=== PATIENT | female | born 1950 | race Caucasian/White ===

== ENCOUNTER 2017-12-12 15:54 | Inpatient (IN) ==
[2017-12-12] MEDS ORDERED: cefTRIAXone 1 GM VIAL IV ONE (16:56)
[2017-12-12 17:52] LABS: Basophils # (Auto) 0 K/mcL (0.0-0.3); Basophils % (Auto) 0.1 % (0.0-2.0); Eosinophils # (Auto) 0.5 K/mcL (0.0-0.7); Eosinophils % (Auto) 5.5 % (0.0-7.0); Granulocytes % (Auto) 77.7 % (38.0-78.0); Lymphocytes # (Auto) 0.8 K/mcL (1.5-4.8); Lymphocytes % (Auto) 9.4 % (15.5-49.0); Mean Cell Volume 80.2 fL (80.0-100.0); Mean Corpuscular HGB Conc 33.3 g/dL (31.0-36.0); Mean Corpuscular Hemoglobin 26.7 pg (26.0-34.0); Monocytes # (Auto) 0.6 K/mcL (0.1-0.9); Monocytes % (Auto) 7.3 % (1.0-12.0); Platelet Count 331 K/mcL (140-440); RBC 3.75 M/mcL (4.00-5.20); Red Cell Distribution Width 14.7 % (11.5-14.5)
--- NOTE | 2017-12-12 17:57 | Emergency Department Note ---
Extremity Problem HPI - General Chief complaint: Extremity Problem,Nontraumatic Stated complaint: Bilateral Lower Extremity Cellulitis Time Seen by Provider: 12/12/17 16:02 Source: patient Mode of arrival: ambulatory Limitations: no limitations - History of Present Illness HPI Narrative: 67-year-old female presents with lower extremity cellulitis. She was diagnosed with this for 5 days ago and was seen in the ER at [facility]. She was supposed to come back for recurrent antibiotic therapy but she did not do so and there was some sort of misunderstanding where she did not understand she was supposed to go back. She presented to her primary care provider at [facility]. They sent her to the ER due to worsening cellulitis with blistering and weeping. She has also had chills, unknown fever. No nausea, vomiting, or diarrhea. She does have chronic significant pedal edema but thinks it is possibly worse than usual. States it was originally just in the right lower leg but now she is a tender area in the left lower leg and she this is exactly how the cellulitis in the right lower leg started to believes it spreading. No shortness of breath or difficulty breathing. No other treatments prior to arrival other than a dressing that had been previously placed to the right lower extremity. - Related Data Home Medications Medication Instructions Recorded Confirmed Accu-Chek 1 strip MIS ACHS 05/05/16 12/12/17 Aspirin [Lo-Dose Aspirin EC] 81 mg PO DAILY 05/05/16 12/12/17 Ergocalciferol (Vitamin D2) 50,000 unit PO Q7D 05/05/16 12/12/17 [Vitamin D2] Insulin Aspart [Novolog] 10 unit SQ QPM 05/05/16 12/12/17 Insulin Detemir [Levemir] 16 unit SQ QPM 05/05/16 12/12/17 Loratadine/Pseudoephedrine [Cvs 10 mcg PO DAILY 05/05/16 12/12/17 Loratadine-D 24Hr Tablet] Metoprolol Tartrate [Lopressor] 25 mg PO BID 05/05/16 12/12/17 Pnv No.122/Iron/Folic Acid 1 tab PO DAILY 05/05/16 12/12/17 [ Multi Tablet] Simvastatin [Zocor] 40 mg PO HS 05/05/16 12/12/17 metFORMIN [Glucophage] 500 mg PO BIDCC 05/05/16 12/12/17 gabapentin 300 mg capsule 600 mg PO TID cap 05/18/16 12/12/17 Allergies Allergy/AdvReac Type Severity Reaction Status Date / Time venom-honey bee Allergy Severe Anaphylaxis Verified 05/06/16 08:12 [bee venom (honey bee)] No Known Drug Intolerances Allergy Unknown Verified 05/04/16 16:04 Review of Systems All systems ED: reviewed and negative except as stated. Past Medical History - Past Medical History [facility] Narrative: Medical History Lymphedema (Acute) Cellulitis (Acute) Renal failure (Acute) DM type 2 causing complication (Acute) Dehydration (Acute) HTN (hypertension) (Acute) Acute renal failure (ARF) (Acute) Nontraumatic blister of skin (Acute) Medical history: Reports: DM, hypertension, renal disease, other (Cellulitis) Surgical history ED: Reports: other - Social History smoking status: Never smoker Alcohol use: Reports: None Drug use: Reports: none Physical Exam Limitations: no limitations General appearance: alert, in no apparent distress Head: atraumatic, normocephalic, normal inspection Eye: Present: normal appearance. Absent: conjunctival injection ENT: mucous membranes moist Chest: Present: symmetric chest wall rise Respiratory: Present: normal lung sounds bilaterally. Absent: respiratory distress, wheezes, accessory muscle use Cardiovascular: Present: regular rate, normal heart sounds Extremities: Absent: normal inspection (Bilateral lower extremities with 2+ pitting edema. The right with significant redness from mid tib-fib down throughout the ankle. The right lateral lower leg also has a 8 cm area by 5 cm area of blistering that is weeping clearish fluid.) Neurological: Present: alert, oriented X3 Psychiatric: Present: normal affect, normal mood Skin: Present: erythema (Please see extremity assessment) Course Course Narrative: At 1830 I did speak with Dr. Amaya, the hospitalist who agrees to see the patient. Vital Signs Temperature 97.9 F 12/12/17 15:56 Pulse Rate 99 H 12/12/17 15:56 Respiratory Rate 18 12/12/17 15:56 Blood Pressure 105/65 12/12/17 15:56 Pulse Oximetry (%) 99 12/12/17 15:56 Temperature 97.9 F 12/12/17 15:56 Pulse Rate 99 H 12/12/17 15:56 Respiratory Rate 18 12/12/17 15:56 Blood Pressure 105/65 12/12/17 15:56 Pulse Oximetry (%) 99 12/12/17 15:56 Extremity Problem, Nontraumati - Lab Data Result diagrams: 12/12/17 16:46 12/12/17 16:46 Lab Results 12/12/17 12/12/17 12/12/17 Range/Units 16:46 16:46 16:46 WBC 8.7 (4.5-11.0) K/mcL RBC 3.75 L (4.00-5.20) M/mcL Hgb 10.0 L (12.0-15.0) g/dL Hct 30.1 L (36.0-48.0) % MCV 80.2 (80.0-100.0) fL MCH 26.7 (26.0-34.0) pg MCHC 33.3 (31.0-36.0) g/dL RDW 14.7 H (11.5-14.5) % Plt Count 331 (140-440) K/mcL MPV 7.1 L (7.4-10.4) fL Gran % 77.7 (38.0-78.0) % Lymph % (Auto) 9.4 L (15.5-49.0) % Adams % (Auto) 7.3 (1.0-12.0) % Eos % (Auto) 5.5 (0.0-7.0) % Baso % (Auto) 0.1 (0.0-2.0) % Gran # 6.8 (1.8-8.0) K/mcL Lymph # (Auto) 0.8 L (1.5-4.8) K/mcL Adams # (Auto) 0.6 (0.1-0.9) K/mcL Eos # (Auto) 0.5 (0.0-0.7) K/mcL Baso # (Auto) 0 (0.0-0.3) K/mcL VBG Lactic Acid 0.9 (0.5-2.2) mmol/L Sodium 137 (133-145) mmol/L Potassium 3.8 (3.3-5.1) mmol/L Chloride 101 (96-108) mmol/L Carbon Dioxide 22 (22-30) mmol/L Anion Gap 14.0 (8-16) BUN 29 H (8-23) mg/dl Creatinine 1.3 H (0.6-1.1) mg/dl GFR Calculation 42 Glucose 119 H (70-105) mg/dL Calcium 8.7 (8.6-10.4) mg/dl Total Bilirubin 0.3 (0.0-1.0) mg/dL AST 9 (0-37) U/l ALT 7 (0-40) U/l Alkaline Phosphatase 73 (39-117) U/L NT-Pro-B Natriuret Pep 226.0 H (0-125) pg/ml Total Protein 7.1 (5.9-8.4) gm/dL Albumin 3.0 L (3.2-5.2) gm/dL Globulin 4.1 H (2.2-3.7) gm/dL Albumin/Globulin Ratio 0.7 L (1.0-2.3) Disposition Pt seen by ORCHARD PRUNER/PA only: Yes Clinical Impression: Cellulitis of lower extremity Disposition: Xfer As Outpt/Obs ([facility]) Condition: Good Referrals: Vaishali Ambriz [Primary Care Provider] - Time of Disposition: 18:35
[2017-12-12 18:14] LABS: ALT/SGPT 7 U/l (0-40); Albumin/Globulin Ratio 0.7 (1.0-2.3); Alkaline Phosphatase 73 U/L (39-117); Blood Urea Nitrogen 29 mg/dl (8-23)
[2017-12-12] MEDS ORDERED: VANCOMYCIN 1,000 MG in 0.9 % SODIUM CHLORIDE 250 ML IV ONE (19:05)
[2017-12-12] MEDS ORDERED: 0.9 % SODIUM CHLORIDE 1,000 ML IV ONE ×2 (19:29→20:16)
[2017-12-12] MEDS ORDERED: PIPERACILLIN SODIUM/TAZOBACTAM 3.375 GM in DEXTROSE 5% IN WATER 50 ML IV SCH (19:30)
--- NOTE | 2017-12-12 19:44 | Internal Med History&Physical ---
Medical - H&P: HPI Patient information: Note initiated : 12/12/17 at 7:39 pm Service Date, if different from initiated Date: [] Patient: Kenia Marion a 67 y/o F admitted on for Bilateral Lower Extremity Cellulitis. Chief Complaint: [] History of present illness: Ms. Marion is a 67 year old F with h/o dm, htn, obesity, renal failure,ckd, hld, chr lymphedema presents to the Er today accompained by her for not feeling well, worsening cellulitis for over 1 week The patient's first noted the increased swelling in the right leg, the patient was seen at [facility] on the fourth of this month, she was given IV Rocephin and advised to follow-up in the ED with daily IV antibiotics. The patient was again seen on the for worsening cellulitis, at that point in time blistering was noted in the right lower extremity, Bactrim was added. The patient according to the history provided today did not get the IV antibiotics, however does admit to be taking the Bactrim. The patient's had gone to the [facility] came back yesterday, he noted to the patient's cellulitis has gotten worse, patient is shivering she is feeling cold has chills has intermittent shortness of breath especially in the evenings , has had bilateral lower extremity swelling which has gotten worse, and now also has erythematous changes on the left leg. He became concerned and therefore brought the patient to the hospital. He also notes that the patient has been more confused over the last 1 week. The patient has had memory issues in the past however they have gotten significantly worse now. The patient denies any headache changes in vision changes in hearing difficulty in swallowing there is no chest pain, there is some shortness of breath, there is no nausea no vomiting no diarrhea no urinary complaints. The patient denies any abdominal pain. Patient has progressive worsening of swelling in the lower extremities which is a chronic issue for her she usually sleeps I believe in the chair. The patient denies any new skin rashes, she has significant pain in both the lower extremities right more than the left. The patient in the ED is febrile temperature 100.8, tachycardic at 134, blood pressure is stable 136/64 she saturating 98% on room air tachypneic at 24. The patient's labs show normal WBC count of 8.7, hemoglobin is 10, platelets 331. Sodium is 137 potassium 3.8 bicarbonate 22 creatinine is 1.3 leukosis 119. Lactic acid 0.9. The patient's heart rate has significantly worsened since that time she has been in the emergency room, she also has developed a new fever she looks visibly sick at this point in time. Her exam shows a significant cellulitis in the right lower extremity extremely tender to touch she also has erythema on the medial aspect of the leg as well as I believe a skip lesion and some erythema in the medial aspect of the thigh. She is wearing some tight clothing' s and therefore it is difficult to completely examine the right lower extremity. Wound care has been consulted Dr. Ramirez evaluated the patient with me in the ER. The patient clinically appears to be sick, I will be admitting the patient to the PCU for close monitoring overnight. Her has been explained the plan of care. All questions answered. IV vancomycin and Zosyn ordered. IV fluids ordered All systems: reviewed and no additional remarkable complaints except as stated ( as per HPI rest neg) Medical - H&P: PMH Medical history: DM HTN HLD Obesity Lymphdemema CKD Surgical history: kidney stone Family history: reviewed and not pertinent Social history: lives with hsband, non smoker, but second hand smoke from no etoh reported occasional THC use. Medical - H&P: Meds Home Medications Medication Instructions Recorded Confirmed Type Accu-Chek 1 strip [facility] 05/05/16 12/12/17 History Aspirin [Lo-Dose Aspirin EC] 81 mg PO DAILY 05/05/16 12/12/17 History Ergocalciferol (Vitamin D2) 50,000 unit PO Q7D 05/05/16 12/12/17 History [Vitamin D2] Insulin Aspart [Novolog] 10 unit SQ QPM 05/05/16 12/12/17 History Insulin Detemir [Levemir] 16 unit SQ QPM 05/05/16 12/12/17 History Loratadine/Pseudoephedrine [Cvs 10 mcg PO DAILY 05/05/16 12/12/17 History Loratadine-D 24Hr Tablet] Metoprolol Tartrate [Lopressor] 25 mg PO BID 05/05/16 12/12/17 History Pnv No.122/Iron/Folic Acid 1 tab PO DAILY 05/05/16 12/12/17 History [ Multi Tablet] Simvastatin [Zocor] 40 mg PO HS 05/05/16 12/12/17 History metFORMIN [Glucophage] 500 mg PO BIDCC 05/05/16 12/12/17 History gabapentin 300 mg capsule 600 mg PO TID cap 05/18/16 12/12/17 History Allergies Allergy/AdvReac Type Severity Reaction Status Date / Time venom-honey bee Allergy Severe Anaphylaxis Verified 05/06/16 08:12 [bee venom (honey bee)] No Known Drug Intolerances Allergy Unknown Verified 05/04/16 16:04 Medical - H&P: Exam - Constitutional Vitals: Temp Pulse Resp BP Pulse Ox 97.9 F 99 H 18 105/65 99 12/12/17 15:56 12/12/17 15:56 12/12/17 15:56 12/12/17 15:56 12/12/17 15:56 Exam: GENERAL: The patient is a well-developed, well-nourished in mild distress, feelign cold wants to be wrapped up. Is alert and oriented x3. VITAL SIGNS: Reviewed and as noted elsewhere. HEENT: Head is normocephalic and atraumatic. Extraocular muscles are intact. Pupils are equal, round, and reactive to light. Nares appeared normal. Mouth appears any without lesions. Mucous membranes are moist. NECK: Normal to inspection, Supple, No lymphadenopathy or thyromegaly. LUNGS: Air entry equal on both sides, no wheezing, crackles or rhonchi noted. No accessory muscles of respiration HEART: Regular tachycardic rate, rhythm normal, S1 and S2 heard, no Gallop, S3 or Rub Noted, No Gross murmur heard. ABDOMEN: Soft, nontender, and nondistended. Positive bowel sounds. No hepatosplenomegaly was noted. EXTREMITIES: No cyanosis, clubbing, rash, edema bilateral +++ NEUROLOGIC: Cranial nerves II through XII are grossly intact. Motor and Sensory System Grossly Intact PSYCHIATRIC: Normal affect, Normal Mood. Appropriate Behavior. SKIN: No ulceration or wounds noted, No jaundice, No rash noted. RLW : significant cellulitis, with brownish induration on the right lateral lig , large bullae, filled with waxy substance. tender to touch, very warm to touch , erytehma involving the medial aspect of the leg, as well as the medial aspect of the right thigh, both areas also tender. LLE: edema present, increased induration, and erytehma on the lateral aspect of the leg, Medical - H&P: Reslt - Labs CBC & Chem 7: 12/12/17 16:46 12/12/17 16:46 Labs: Short CBC 12/12/17 Range/Units 16:46 WBC 8.7 (4.5-11.0) K/mcL Hgb 10.0 L (12.0-15.0) g/dL Hct 30.1 L (36.0-48.0) % Plt Count 331 (140-440) K/mcL BMP 12/12/17 16:46 Sodium 137 Potassium 3.8 Chloride 101 Carbon Dioxide 22 BUN 29 H Creatinine 1.3 H Glucose 119 H Calcium 8.7 Liver Function 12/12/17 Range/Units 16:46 Total Bilirubin 0.3 (0.0-1.0) mg/dL AST 9 (0-37) U/l ALT 7 (0-40) U/l Alkaline Phosphatase 73 (39-117) U/L Albumin 3.0 L (3.2-5.2) gm/dL Medical - H&P: A/P - Narrative A/P Narrative: A/P Severe sepsis Severe Cellulitis DM HTN HLD Lymphdemema CKD Plan Admit to PCU for close monitoring as pt is clinically appears sick with significant tachycardia, IV fluids, IV vancomycin and zosyn wound care consult STAT CT of the right lower extremity ordered, given that the patient has sever cellulitis, and skip lesions, would like to see if deeper tissue is involved, will get surgery consult if fascitis noted. Otherwise wound care can debrided. Duplex LE to r/o dvt get CXR and EKG Trend labs. SSI insulin for glucose control hold bp medication continue statin DVT hep sq Full code Diabetic cardiac diet.
[2017-12-12] MEDS ORDERED: DEXTROSE 31 GM ORAL.SUSP PO PRN (20:16)
[2017-12-12] MEDS ORDERED: LACTATED RINGERS 1,000 ML IV SCH (20:16)
[2017-12-12] MEDS ORDERED: DEXTROSE 50% 50 ML VIAL IV PRN (20:16)
[2017-12-12] MEDS ORDERED: ACETAMINOPHEN 325 MG TABLET PO PRN (20:16)
[2017-12-12] MEDS ORDERED: NALOXONE HCL 0.4 MG/ML VIAL IV PRN (20:16)
[2017-12-12] MEDS: INSULIN LISPRO 1 UNIT/0.01 ML UNIT SQ SCH (20:49)
[2017-12-12] MEDS: oxyCODONE HCL 5 MG TABLET PO PRN (20:51)
[2017-12-12] MEDS ORDERED: VANCOMYCIN PER PHARMACY IV ONE (20:56)
[2017-12-12] MEDS: HEPARIN 5,000 UNIT/ML VIAL SQ SCH (21:00)
[2017-12-12] MEDS: GABAPENTIN 300 MG CAPSULE PO SCH (21:00)
[2017-12-12] MEDS ORDERED: SIMVASTATIN 40 MG TABLET PO SCH (21:00)
--- NOTE | 2017-12-12 21:15 | General Surgery Consult Note ---
History of Present Illness Patient information: Note initiated : 12/12/17 at 9:10 pm Service Date, if different from initiated Date: [] Patient: Kenia Marion 67 y/o F admitted on 12/12/17 for Bilateral Lower Extremity Cellulitis. Chief Complaint: [] Consult date: 12/12/17 Requesting physician: Mina Amaya (Wound Care Management) History of present illness: I saw this patient in ER along with Dr. Amaya.Reviewed notes from ER visit at [facility] last week. Patient accompanied by her . \ Referred to ER at [facility] by her PCP at [facility] clinic. H/O HTN, DM2, CHRONIC LYMPHEDEMA OF BOTH LE, post phlebitis syndrome both legs , FATIMAH and now CSSSI with evolving SIRS. with tenderness and blister lateral lower half of right leg. Fever, chills and rigors and shakiness today when seen in ER. Denies N/V/D/CP/SOB/ Headache , Diplopia, Neck stiffness. Medications and Allergies Home Medications Medication Instructions Recorded Confirmed Type Accu-Chek 1 strip [facility] [place]S 05/05/16 12/12/17 History Aspirin [Lo-Dose Aspirin EC] 81 mg PO DAILY 05/05/16 12/12/17 History Ergocalciferol (Vitamin D2) 50,000 unit PO Q7D 05/05/16 12/12/17 History [Vitamin D2] Insulin Aspart [Novolog] 10 unit SQ QPM 05/05/16 12/12/17 History Insulin Detemir [Levemir] 16 unit SQ QPM 05/05/16 12/12/17 History Loratadine/Pseudoephedrine [Cvs 10 mcg PO DAILY 05/05/16 12/12/17 History Loratadine-D 24Hr Tablet] Metoprolol Tartrate [Lopressor] 25 mg PO BID 05/05/16 12/12/17 History Pnv No.122/Iron/Folic Acid 1 tab PO DAILY 05/05/16 12/12/17 History [ Multi Tablet] Simvastatin [Zocor] 40 mg PO HS 05/05/16 12/12/17 History metFORMIN [Glucophage] 500 mg PO BIDCC 05/05/16 12/12/17 History gabapentin 300 mg capsule 600 mg PO TID cap 05/18/16 12/12/17 History Allergies Allergy/AdvReac Type Severity Reaction Status Date / Time venom-honey bee Allergy Severe Anaphylaxis Verified 05/06/16 08:12 [bee venom (honey bee)] No Known Drug Intolerances Allergy Unknown Verified 05/04/16 16:04 Exam Temp Pulse Resp BP Pulse Ox 101.2 F H 120 H 23 H 120/59 92 12/12/17 21:00 12/12/17 20:30 12/12/17 20:30 12/12/17 20:30 12/12/17 20:30 - General physical appearance well nourished, moderate distress, obese, other (Morbid obesity with lymphedema of both legs Right > Left. ) - Eyes PERRL, normal ocular movement - ENT normal pinna, normal nares, normal mucosa, no congestion, other (symmetrical shaking and chills and tremors of hands) - Head Head exam IM: Present: atraumatic, normal inspection, normocephalic - Neck no masses, no bruits, trachea midline, no venous distension - Cardiovascular Cardiovascular exam IM: Present: irregular rhythm - Respiratory other (Tachypneic with decreased breath sounds at bases) - Abdomen Abdomen: Present: soft, non tender, bowel sounds (OBESE) - Integumentary Present: other (Post phlebitis syndrome with blister lateral lower half of leg over 5 to 6 CM . Lymphorrhea) - Neurologic Present: normal coordination, other (anxious) - Musculoskeletal Present: other (Lymphedema of both legs. Post phlebitis syndrome changes both lower legs . Right > Left. There is straking lymphangitis along medial lower RIGHT thigh superimposed on Cellulitis aroud blister site as marked out) - Psychiatric Present: oriented to time, oriented to person, oriented to place, speech is normal (Anxious and nervous. at bedside. ) Results - Labs 12/14/17 03:45 12/14/17 03:45 Abnormal lab results 12/12/17 12/12/17 Range/Units 16:46 16:46 RBC 3.75 L (4.00-5.20) M/mcL Hgb 10.0 L (12.0-15.0) g/dL Hct 30.1 L (36.0-48.0) % RDW 14.7 H (11.5-14.5) % MPV 7.1 L (7.4-10.4) fL Lymph % (Auto) 9.4 L (15.5-49.0) % Lymph # (Auto) 0.8 L (1.5-4.8) K/mcL BUN 29 H (8-23) mg/dl Creatinine 1.3 H (0.6-1.1) mg/dl Glucose 119 H (70-105) mg/dL NT-Pro-B Natriuret Pep 226.0 H (0-125) pg/ml Albumin 3.0 L (3.2-5.2) gm/dL Globulin 4.1 H (2.2-3.7) gm/dL Albumin/Globulin Ratio 0.7 L (1.0-2.3) Diabetes panel 12/12/17 Range/Units 16:46 Sodium 137 (133-145) mmol/L Potassium 3.8 (3.3-5.1) mmol/L Chloride 101 (96-108) mmol/L Carbon Dioxide 22 (22-30) mmol/L BUN 29 H (8-23) mg/dl Creatinine 1.3 H (0.6-1.1) mg/dl Glucose 119 H (70-105) mg/dL Calcium 8.7 (8.6-10.4) mg/dl AST 9 (0-37) U/l ALT 7 (0-40) U/l Alkaline Phosphatase 73 (39-117) U/L Total Protein 7.1 (5.9-8.4) gm/dL Albumin 3.0 L (3.2-5.2) gm/dL Calcium panel 12/12/17 Range/Units 16:46 Calcium 8.7 (8.6-10.4) mg/dl Albumin 3.0 L (3.2-5.2) gm/dL Pituitary panel 12/12/17 Range/Units 16:46 Sodium 137 (133-145) mmol/L Potassium 3.8 (3.3-5.1) mmol/L Chloride 101 (96-108) mmol/L Carbon Dioxide 22 (22-30) mmol/L BUN 29 H (8-23) mg/dl Creatinine 1.3 H (0.6-1.1) mg/dl Glucose 119 H (70-105) mg/dL Calcium 8.7 (8.6-10.4) mg/dl Adrenal panel 12/12/17 Range/Units 16:46 Sodium 137 (133-145) mmol/L Potassium 3.8 (3.3-5.1) mmol/L Chloride 101 (96-108) mmol/L Carbon Dioxide 22 (22-30) mmol/L BUN 29 H (8-23) mg/dl Creatinine 1.3 H (0.6-1.1) mg/dl Glucose 119 H (70-105) mg/dL Calcium 8.7 (8.6-10.4) mg/dl Total Bilirubin 0.3 (0.0-1.0) mg/dL AST 9 (0-37) U/l ALT 7 (0-40) U/l Alkaline Phosphatase 73 (39-117) U/L Total Protein 7.1 (5.9-8.4) gm/dL Albumin 3.0 L (3.2-5.2) gm/dL All other labs normal. Assessment and Plan (1) SIRS (systemic inflammatory response syndrome) Status: Acute Priority: High Comment: Source of Sepsis is skin and skin structures RIGHT lower lateral leg with CELLULITIS and streaking lymphangitis along medial lower thigh. REVIEWED CT scans. NO gas bubbles. DO NOT suspect deep tissue necrosis. Agree with admission to ICU . Will follow. (2) Dermatitis associated with moisture Status: Acute Priority: High Comment: Lymphedema LE Right > Left
[2017-12-12] MEDS ORDERED: IOPAMIDOL 100 ML BOTTLE IV ONE (22:21)
[2017-12-12] MEDS: 0.9 % SODIUM CHLORIDE 10 ML SYRINGE IV SCH (22:39)
[2017-12-13] MEDS: PIPERACILLIN SODIUM/TAZOBACTAM 3.375 GM in DEXTROSE 5% IN WATER 50 ML IV SCH ×4 (00:16→17:22)
[2017-12-13] MEDS ORDERED: 0.9 % SODIUM CHLORIDE 1,000 ML IV ONE ×2 (00:24→00:46)
[2017-12-13] MEDS: 0.9 % SODIUM CHLORIDE 10 ML SYRINGE IV SCH ×2 (05:37→14:00)
[2017-12-13 05:38] LABS: Basophils # (Auto) 0 K/mcL (0.0-0.3); Basophils % (Auto) 0.3 % (0.0-2.0); Eosinophils # (Auto) 0.3 K/mcL (0.0-0.7); Eosinophils % (Auto) 4.3 % (0.0-7.0); Granulocytes % (Auto) 76.8 % (38.0-78.0); Lymphocytes # (Auto) 0.8 K/mcL (1.5-4.8); Mean Cell Volume 80.9 fL (80.0-100.0); Mean Corpuscular HGB Conc 33.1 g/dL (31.0-36.0); Mean Corpuscular Hemoglobin 26.7 pg (26.0-34.0); Monocytes # (Auto) 0.7 K/mcL (0.1-0.9); Monocytes % (Auto) 8.6 % (1.0-12.0); Platelet Count 305 K/mcL (140-440); RBC 3.34 M/mcL (4.00-5.20); Red Cell Distribution Width 15.1 % (11.5-14.5)
[2017-12-13 06:00] LABS: Prealbumin 6.9 mg/dl (20-40)
[2017-12-13 06:01] LABS: ALT/SGPT 6 U/l (0-40); Albumin 2.2 gm/dL (3.2-5.2); Albumin/Globulin Ratio 0.6 (1.0-2.3); Alkaline Phosphatase 62 U/L (39-117); Bilirubin,Direct < 0.2 mg/dL (0.0-0.3); Blood Urea Nitrogen 24 mg/dl (8-23); C-Reactive Protein 9.8 mg/dl (0.0-0.8); Gamma Glutamyl Transpeptidase 20 U/L (5-36); Uric Acid 8.8 mg/dL (2.5-8.0)
[2017-12-13 06:44] LABS: Estimated Average Glucose(eAG) 255 mg/dL; Hemoglobin A1C 10.5 % HGB (4.0-6.0)
[2017-12-13] MEDS: oxyCODONE HCL 5 MG TABLET PO PRN ×2 (07:02→13:34)
--- NOTE | 2017-12-13 07:43 | Emergency Department Note ---
ED Note Addendum Note Addendum: I saw this patient with Kathrin AMBROSIO. I agree with her evaluation management documentation. Specifically concerned about her right leg in particular. Do agree with decision to admit. Notably the patient was stable for most of her ER stay but towards the latter part of it vital signs changed and there was some concern that she had SIRS or may be going septic. She was admitted to the ICU. See other documentation for interventions
[2017-12-13] MEDS ORDERED: VANCOMYCIN PER PHARMACY IV SCH ×2 (07:45→12:04)
--- NOTE | 2017-12-13 07:48 | Cat Scan Report ---
History: Bilateral leg cellulitis TECHNIQUE: Intravenous nonionic contrast was injected. Venous phase images were obtained from the mid pelvis through the ankles. Sagittal and coronal reformats were created of both legs separately. Radiation exposure was limited by a dose reduction technology. FINDINGS: There is severe edema/cellulitis in the right leg with moderate edema/cellulitis in the left leg. The greatest inflammation is in the calves. This extends into the thighs bilaterally and up to the level of the gluteus muscles in the right leg. No abscess or mass are present in either leg. Inflammation extends down to the deep fascia but there is no compartment syndrome. The muscles in the legs appear normal without evidence of myositis. No deep or superficial venous thrombosis is present in either leg. There is a moderate amount of calcified plaque in the arteries throughout both legs with the greatest involvement in the calves, especially in the posterior tibial arteries. Bone windows show no evidence of osteomyelitis. There is mild arthritis in the knees and ankles. Incidentally noted is a 3 cm periumbilical hernia. Montiel catheter is present in the urinary bladder. Few diverticula are present in the sigmoid colon. IMPRESSION: Severe edema/cellulitis in both legs, right worse than left No evidence of abscess or osteomyelitis No evidence of deep venous thrombosis Kathrin Burleson was called with the results Interpreted and Authenticated by: Oneal Atkins 12/13/17
--- NOTE | 2017-12-13 07:50 | XRay Report ---
HISTORY: Reason for Exam:shortness of breath FINDINGS: There are mild hazy infiltrates in both lungs, left greater than right. They are predominantly located in a perihilar distribution. There is no lobar consolidation. The heart size is normal and no pleural effusion is present. Comparison with the prior exam from 04/25/16 shows the infiltrates are new. IMPRESSION: Bilateral perihilar opacities which could be due to congestive heart failure or pneumonia Interpreted and Authenticated by: Oneal Atkins 12/13/17
[2017-12-13] MEDS ORDERED: ASPIRIN 81 MG TAB.CHEW PO SCH (09:00)
[2017-12-13] MEDS ORDERED: VANCOMYCIN 1,500 MG in 0.9 % SODIUM CHLORIDE 500 ML IV SCH (09:00)
--- NOTE | 2017-12-13 09:02 | General Surgery Progress Note ---
Subjective Narrative: Note initiated : 12/13/17 at 8:59 am Service Date, if different from initiated Date: [] Patient: Kenia Marion 67 y/o F admitted on 12/12/17 for Bilateral Lower Extremity Cellulitis. Chief Complaint: [] Patient seen in ICU on rounds with Rylee SANTANA . Family at bedside. Lucid, coherent , OOB in chair. Hemodynamically stabilizing. Local wound care is ongoing. Objective Temp Pulse Resp BP Pulse Ox 99.4 F H 97 H 18 102/57 98 12/13/17 08:13 12/13/17 08:13 12/13/17 08:13 12/13/17 07:01 12/13/17 08:13 VSS. Low grade fever. No flaring of nostrils. No acute changes in DARWIN. Local wound care is ongoing. - Additional Data Intake & Output - Last 24 hours: Intake & Output 12/11/17 12/12/17 12/13/17 12/14/17 05:59 05:59 05:59 05:59 Intake Total 2300 / 2300 50 / 50 Output Total 930 / 930 143 / 143 Balance 1370 / 1370 -93 / -93 Weight 194 lb 6.4 oz - Labs 12/14/17 03:45 12/14/17 03:45 Diabetes panel 12/12/17 12/13/17 12/13/17 Range/Units 16:46 03:45 03:45 Sodium 137 137 (133-145) mmol/L Potassium 3.8 4.1 (3.3-5.1) mmol/L Chloride 101 106 (96-108) mmol/L Carbon Dioxide 22 19 L (22-30) mmol/L BUN 29 H 24 H (8-23) mg/dl Creatinine 1.3 H 1.1 (0.6-1.1) mg/dl Glucose 119 H 146 H (70-105) mg/dL Hemoglobin A1c 10.5 H (4.0-6.0) % HGB Calcium 8.7 7.7 L (8.6-10.4) mg/dl AST 9 8 (0-37) U/l ALT 7 6 (0-40) U/l Alkaline Phosphatase 73 62 (39-117) U/L Total Protein 7.1 5.7 L (5.9-8.4) gm/dL Albumin 3.0 L 2.2 L (3.2-5.2) gm/dL Triglycerides 170 H (<150) mg/dl Thyroid panel 12/13/17 Range/Units 03:45 TSH 1.49 (0.27-5.01) uIU/ml Calcium panel 12/12/17 12/13/17 Range/Units 16:46 03:45 Calcium 8.7 7.7 L (8.6-10.4) mg/dl Phosphorus 2.8 (2.7-4.5) mg/dL Albumin 3.0 L 2.2 L (3.2-5.2) gm/dL Pituitary panel 12/12/17 12/13/17 12/13/17 Range/Units 16:46 03:45 03:45 Sodium 137 137 (133-145) mmol/L Potassium 3.8 4.1 (3.3-5.1) mmol/L Chloride 101 106 (96-108) mmol/L Carbon Dioxide 22 19 L (22-30) mmol/L BUN 29 H 24 H (8-23) mg/dl Creatinine 1.3 H 1.1 (0.6-1.1) mg/dl Glucose 119 H 146 H (70-105) mg/dL Calcium 8.7 7.7 L (8.6-10.4) mg/dl TSH 1.49 (0.27-5.01) uIU/ml Adrenal panel 12/12/17 12/13/17 Range/Units 16:46 03:45 Sodium 137 137 (133-145) mmol/L Potassium 3.8 4.1 (3.3-5.1) mmol/L Chloride 101 106 (96-108) mmol/L Carbon Dioxide 22 19 L (22-30) mmol/L BUN 29 H 24 H (8-23) mg/dl Creatinine 1.3 H 1.1 (0.6-1.1) mg/dl Glucose 119 H 146 H (70-105) mg/dL Calcium 8.7 7.7 L (8.6-10.4) mg/dl Total Bilirubin 0.3 0.2 (0.0-1.0) mg/dL AST 9 8 (0-37) U/l ALT 7 6 (0-40) U/l Alkaline Phosphatase 73 62 (39-117) U/L Total Protein 7.1 5.7 L (5.9-8.4) gm/dL Albumin 3.0 L 2.2 L (3.2-5.2) gm/dL Assessment and Plan (1) SIRS (systemic inflammatory response syndrome) Problem details: Source of Sepsis is skin and skin structures RIGHT lower lateral leg with CELLULITIS and streaking lymphangitis along medial lower thigh. REVIEWED CT scans. NO gas bubbles. DO NOT suspect deep tissue necrosis. Agree with admission to ICU . Will follow. Status: Acute Current Visit: Yes (2) Dermatitis associated with moisture Problem details: Lymphedema LE Right > Left Status: Acute Current Visit: Yes - Narrative A/P Narrative: Assessment: Reassessed and progress reviewed with ICU nurse and Hospitalist Physician. Plan : Continue present treatment. - Time Spent With Patient Total time spent is greater than 50% in coordination of care (as documented) at patient's floor/unit and/or counseling patient: 15 - 24 minutes (Progress reviewed with Dr. Amaya and Rylee SANTANA)
[2017-12-13] MEDS: INSULIN LISPRO 1 UNIT/0.01 ML UNIT SQ SCH ×4 (09:11→20:53)
[2017-12-13] MEDS: HEPARIN 5,000 UNIT/ML VIAL SQ SCH ×2 (09:12→20:52)
[2017-12-13] MEDS: GABAPENTIN 300 MG CAPSULE PO SCH ×3 (09:12→20:53)
--- NOTE | 2017-12-13 11:34 | Internal Med Progress Note ---
Medical - PN: Subj Patient information: Note initiated : 12/13/17 at 11:32 am Service Date, if different from initiated Date: [] Patient: Kenia Marion a 67 y/o F admitted on 12/12/17 for Bilateral Lower Extremity Cellulitis. Chief Complaint: [] Interval history: Ms. Marion is a 67 year old F with h/o dm, htn, obesity, renal failure,ckd, hld, chr lymphedema presents to the Er today accompained by her for not feeling well, worsening cellulitis for over 1 week The patient's first noted the increased swelling in the right leg, the patient was seen at [facility] on the fourth of this month, she was given IV Rocephin and advised to follow-up in the ED with daily IV antibiotics. The patient was again seen on the for worsening cellulitis, at that point in time blistering was noted in the right lower extremity, Bactrim was added. The patient according to the history provided today did not get the IV antibiotics, however does admit to be taking the Bactrim. The patient's had gone to the [facility] came back yesterday, he noted to the patient's cellulitis has gotten worse, patient is shivering she is feeling cold has chills has intermittent shortness of breath especially in the evenings , has had bilateral lower extremity swelling which has gotten worse, and now also has erythematous changes on the left leg. He became concerned and therefore brought the patient to the hospital. He also notes that the patient has been more confused over the last 1 week. The patient has had memory issues in the past however they have gotten significantly worse now. The patient denies any headache changes in vision changes in hearing difficulty in swallowing there is no chest pain, there is some shortness of breath, there is no nausea no vomiting no diarrhea no urinary complaints. The patient denies any abdominal pain. Patient has progressive worsening of swelling in the lower extremities which is a chronic issue for her she usually sleeps I believe in the chair. The patient denies any new skin rashes, she has significant pain in both the lower extremities right more than the left. The patient in the ED is febrile temperature 100.8, tachycardic at 134, blood pressure is stable 136/64 she saturating 98% on room air tachypneic at 24. The patient's labs show normal WBC count of 8.7, hemoglobin is 10, platelets 331. Sodium is 137 potassium 3.8 bicarbonate 22 creatinine is 1.3 leukosis 119. Lactic acid 0.9. The patient's heart rate has significantly worsened since that time she has been in the emergency room, she also has developed a new fever she looks visibly sick at this point in time. Her exam shows a significant cellulitis in the right lower extremity extremely tender to touch she also has erythema on the medial aspect of the leg as well as I believe a skip lesion and some erythema in the medial aspect of the thigh. She is wearing some tight clothing' s and therefore it is difficult to completely examine the right lower extremity. Wound care has been consulted Dr. Ramirez evaluated the patient with me in the ER. The patient clinically appears to be sick, I will be admitting the patient to the PCU for close monitoring overnight. Her has been explained the plan of care. All questions answered. IV vancomycin and Zosyn ordered. IV fluids ordered 12/13 Patient seen and examined, overnight the blood pressure has remained stable. Mental status improved patient clinically appears better. Hemoglobin dropped a bit as anticipated with hydration and severe sepsis. CT scan does not show any evidence of necrotizing fasciitis patient does have severe cellulitis in the right leg as well as in the left leg. Right worse than the left. Appreciate help from wound care. Continue IV vancomycin and Zosyn. Transfer patient to telemetry status Pertinent ROS: Denies headache, dizziness Denies chest pain, palpitations some cough today, no sob, Denies abdominal pain, nausea or vomiting. - Constitutional Vitals: Vital Signs Temp Pulse Resp BP Pulse Ox 99.5 F H 108 H 17 97/53 98 12/13/17 09:01 12/13/17 09:01 12/13/17 11:01 12/13/17 11:01 12/13/17 09:01 Period Temp Pulse Resp BP Sys/Mayo Pulse Ox Last 24 Hr 97.7 F-101.4 F 81-134 14-24 85-136/42-65 92-99 Intake and Output 12/12/17 12/13/17 12/13/17 21:59 05:59 13:59 Intake Total 250 / 250 0 / 0 290 / 290 Output Total 930 / 930 283 / 283 Balance 250 / 250 1120 / 1120 7 / 7 Weight 194 lb 6.4 oz Intake & Output: Intake & Output 12/12/17 12/13/17 12/13/17 21:59 05:59 13:59 Intake Total 250 / 250 2049 290 / 290 Output Total 930 / 930 283 / 283 Balance 250 / 250 1120 / 1120 7 / 7 Weight 194 lb 6.4 oz Intake: IV 250 / 250 2049 50 / 50 Sodium Chloride 0.9% 1,000 ml @ 1999 / 1999 Wide Open IV B[facility] ONE Rx#: [id number] Zosyn 3.375 gm In Dextrose 5% 50 / 50 50 / 50 in Water 50 ml @ 100 mls/hr IV Q6H [facility] Rx#:[id number] Vancomycin 1,000 mg In Sodium 250 / 250 Chloride 0.9% 250 ml @ 250 mls/ hr IV ONCE ONE Rx#:[id number] Oral 240 / 240 Output: Urine Catheter Amount 930 / 930 283 / 283 Void Amount 0 / 0 Other: Meal Grahm crackers, orange juice Breakfast Percent of Meal Consumed 75% 75% Feeding Ability Assist with Tray Set Up Exam: Constitutional; Afebrile, cooperative, alert, not in distress. Eyes- No icterus, , No periorbital swelling Ears- Ext ear normal, hearing normal to conversation. Neck- Midline trachea, supple Respiratory system: Air Entry equal on both sides, No crackles or wheezing, no rhonchi. CVS- Rate rhythm regular, S1,S2 heard, no gallop, no rub. Abdomen- Soft nontender abdomen, no organomegaly, no tenderness, no guarding or rigidity, WELL TESTER- AOOx3, moving all extremities, no gross focal deficit noted. Medical - PN: Obj Da - Labs CBC & Chem 7: 12/13/17 03:45 12/13/17 03:45 Labs: Abnormal Lab Results 12/13/17 12/13/17 12/13/17 03:45 03:45 03:45 RBC Hgb Hct RDW MPV Lymph % (Auto) Lymph # (Auto) ESR 83 H Carbon Dioxide 19 L BUN 24 H Creatinine Glucose 146 H Hemoglobin A1c 10.5 H Uric Acid 8.8 H Calcium 7.7 L C-Reactive Protein 9.8 H NT-Pro-B Natriuret Pep Total Protein 5.7 L Albumin 2.2 L Globulin Albumin/Globulin Ratio 0.6 L Prealbumin 6.9 L Triglycerides 170 H 12/13/17 12/12/17 12/12/17 03:45 16:46 16:46 RBC 3.34 L 3.75 L Hgb 8.9 L 10.0 L Hct 27.0 L 30.1 L RDW 15.1 H 14.7 H MPV 7.1 L 7.1 L Lymph % (Auto) 10.0 L 9.4 L Lymph # (Auto) 0.8 L 0.8 L ESR Carbon Dioxide BUN 29 H Creatinine 1.3 H Glucose 119 H Hemoglobin A1c Uric Acid Calcium C-Reactive Protein NT-Pro-B Natriuret Pep 226.0 H Total Protein Albumin 3.0 L Globulin 4.1 H Albumin/Globulin Ratio 0.7 L Prealbumin Triglycerides Meds: Medications Acetaminophen (Tylenol) 650 mg PO Q4-6HP PRN PRN Reason: PAIN/FEVER > 101 Last Admin: 12/12/17 21:00 Dose: 650 mg Aspirin (Aspirin) 81 mg PO DAILY [facility] Last Admin: 12/13/17 09:12 Dose: 81 mg Dextrose (Dextrose 50%) 0 ml IV UD PRN PRN Reason: Hypoglycemia Diagnostic Test (Pha) (Accu-Chek) 1 each FS ACHS [facility] Last Admin: 12/13/17 09:10 Dose: 1 each Gabapentin (Neurontin) 600 mg PO TID [facility] Last Admin: 12/13/17 09:12 Dose: 600 mg Glucose (Insta-Glucose) 15 gm PO PRN PRN PRN Reason: Hypoglycemia Heparin Sodium (Porcine) (Heparin) 5,000 unit SQ Q12 [facility] Last Admin: 12/13/17 09:12 Dose: 5,000 unit Piperacillin Sod/Tazobactam (Sod 3.375 gm/ Dextrose) 50 mls @ 100 mls/hr IV Q6H [facility] Last Infusion: 12/13/17 06:10 Dose: Infused Vancomycin HCl 1,500 mg/ (Sodium Chloride) 500 mls @ 333.3 mls/hr IV DAILY [facility] Last Admin: 12/13/17 09:19 Dose: 333.3 mls/hr Insulin Human Lispro (Humalog) 0 unit SQ ACHS [facility] PRN Reason: Protocol Last Admin: 12/13/17 09:11 Dose: Not Given Naloxone HCl (Narcan) 0.1 mg IV Q2MIN PRN PRN Reason: Opiate Reversal Oxycodone HCl (Roxicodone) 5 mg PO Q4HP PRN PRN Reason: Pain Last Admin: 12/13/17 07:02 Dose: 5 mg Simvastatin (Zocor) 40 mg PO HS [facility] Last Admin: 12/12/17 21:00 Dose: 40 mg Sodium Chloride (Saline Flush) 10 ml IV Q8 [facility] Last Admin: 12/13/17 05:37 Dose: 10 ml Vancomycin HCl (Vancomycin Per Pharmacy) 1 order IV UD [facility] Medical - PN: A/P - Time Spent With Patient Total time spent is greater than 50% in coordination of care (as documented) at patient's floor/unit and/or counseling patient: - Narrative A/P Narrative: A/P Severe sepsis Severe Cellulitis DM HTN HLD Lymphdemema CKD Plan continue to monitor IV vanco and zosyn to continue wound care help appreciated bp stable, labs stable d/c live Xfer to tele status. DVT hep sq Full code Diabetic cardiac diet. plan of care reviewed with and patient. Medical - PN: Qual - VTE Deep Vein Thrombosis/Pulmonary Embolism Present on Admission: No
[2017-12-13] MEDS ORDERED: DEXTROSE 31 GM ORAL.SUSP PO PRN (12:04)
[2017-12-13] MEDS ORDERED: NALOXONE HCL 0.4 MG/ML VIAL IV PRN (12:04)
[2017-12-13] MEDS ORDERED: DEXTROSE 50% 50 ML VIAL IV PRN (12:04)
[2017-12-13] MEDS ORDERED: ACETAMINOPHEN 325 MG TABLET PO PRN (12:04)
--- NOTE | 2017-12-13 14:27 | Ultrasound Report ---
History: Edema and erythema in both legs There is normal augmentation and compressibility in the deep veins in both legs from the groin through the calf. There are segments of the mid and upper calf which are obscured by overlying dressings on the skin. Above and below the skin dressings there is normal blood flow in the calf vessels. The greater saphenous veins are also normal. Doppler shows normal waveform patterns. IMPRESSION: No evidence of deep venous thrombosis in either leg. Interpreted and Authenticated by: Oneal Atkins 12/13/17
[2017-12-13] MEDS: SIMVASTATIN 40 MG TABLET PO SCH (20:58)
[2017-12-14] MEDS: 0.9 % SODIUM CHLORIDE 10 ML SYRINGE IV SCH ×4 (00:19→20:54)
[2017-12-14] MEDS: PIPERACILLIN SODIUM/TAZOBACTAM 3.375 GM in DEXTROSE 5% IN WATER 50 ML IV SCH ×4 (00:19→20:10)
[2017-12-14] MEDS: oxyCODONE HCL 5 MG TABLET PO PRN ×4 (00:20→23:50)
[2017-12-14 05:19] LABS: Basophils # (Auto) 0 K/mcL (0.0-0.3); Basophils % (Auto) 0.3 % (0.0-2.0); Eosinophils # (Auto) 0.6 K/mcL (0.0-0.7); Eosinophils % (Auto) 7.7 % (0.0-7.0); Granulocytes % (Auto) 68.9 % (38.0-78.0); Lymphocytes % (Auto) 13.6 % (15.5-49.0); Mean Cell Volume 81.2 fL (80.0-100.0); Mean Corpuscular HGB Conc 33.1 g/dL (31.0-36.0); Mean Corpuscular Hemoglobin 26.9 pg (26.0-34.0); Monocytes # (Auto) 0.7 K/mcL (0.1-0.9); Monocytes % (Auto) 9.5 % (1.0-12.0); Platelet Count 297 K/mcL (140-440); Red Cell Distribution Width 14.9 % (11.5-14.5)
[2017-12-14 05:48] LABS: ALT/SGPT 6 U/l (0-40); Albumin 2.2 gm/dL (3.2-5.2); Albumin/Globulin Ratio 0.6 (1.0-2.3); Alkaline Phosphatase 61 U/L (39-117); Bilirubin,Direct < 0.2 mg/dL (0.0-0.3); Blood Urea Nitrogen 18 mg/dl (8-23); Gamma Glutamyl Transpeptidase 21 U/L (5-36); Uric Acid 6.2 mg/dL (2.5-8.0)
[2017-12-14] MEDS: INSULIN LISPRO 1 UNIT/0.01 ML UNIT SQ SCH ×4 (07:37→20:50)
[2017-12-14] MEDS ORDERED: METOPROLOL TARTRATE 5 MG/5 ML VIAL IV ONE ×2 (08:57→10:22)
[2017-12-14] MEDS ORDERED: METOPROLOL TARTRATE 25 MG TABLET PO SCH ×2 (09:00→21:00)
[2017-12-14] MEDS: HEPARIN 5,000 UNIT/ML VIAL SQ SCH ×2 (09:05→20:50)
[2017-12-14] MEDS: ASPIRIN 81 MG TAB.CHEW PO SCH (09:05)
[2017-12-14] MEDS: GABAPENTIN 300 MG CAPSULE PO SCH ×3 (09:05→20:50)
[2017-12-14] MEDS: VANCOMYCIN 1,500 MG in 0.9 % SODIUM CHLORIDE 500 ML IV SCH (10:47)
--- NOTE | 2017-12-14 13:26 | Internal Med Progress Note ---
Medical - PN: Subj Patient information: Note initiated : 12/14/17 at 1:23 pm Service Date, if different from initiated Date: [] Patient: Kenia Marion a 67 y/o F admitted on 12/12/17 for Bilateral Lower Extremity Cellulitis. Chief Complaint: [] Interval history: Ms. Marion is a 67 year old F with h/o dm, htn, obesity, renal failure,ckd, hld, chr lymphedema presents to the Er today accompained by her for not feeling well, worsening cellulitis for over 1 week The patient's first noted the increased swelling in the right leg, the patient was seen at [facility] on the fourth of this month, she was given IV Rocephin and advised to follow-up in the ED with daily IV antibiotics. The patient was again seen on the for worsening cellulitis, at that point in time blistering was noted in the right lower extremity, Bactrim was added. The patient according to the history provided today did not get the IV antibiotics, however does admit to be taking the Bactrim. The patient's had gone to the [facility] came back yesterday, he noted to the patient's cellulitis has gotten worse, patient is shivering she is feeling cold has chills has intermittent shortness of breath especially in the evenings , has had bilateral lower extremity swelling which has gotten worse, and now also has erythematous changes on the left leg. He became concerned and therefore brought the patient to the hospital. He also notes that the patient has been more confused over the last 1 week. The patient has had memory issues in the past however they have gotten significantly worse now. The patient denies any headache changes in vision changes in hearing difficulty in swallowing there is no chest pain, there is some shortness of breath, there is no nausea no vomiting no diarrhea no urinary complaints. The patient denies any abdominal pain. Patient has progressive worsening of swelling in the lower extremities which is a chronic issue for her she usually sleeps I believe in the chair. The patient denies any new skin rashes, she has significant pain in both the lower extremities right more than the left. The patient in the ED is febrile temperature 100.8, tachycardic at 134, blood pressure is stable 136/64 she saturating 98% on room air tachypneic at 24. The patient's labs show normal WBC count of 8.7, hemoglobin is 10, platelets 331. Sodium is 137 potassium 3.8 bicarbonate 22 creatinine is 1.3 leukosis 119. Lactic acid 0.9. The patient's heart rate has significantly worsened since that time she has been in the emergency room, she also has developed a new fever she looks visibly sick at this point in time. Her exam shows a significant cellulitis in the right lower extremity extremely tender to touch she also has erythema on the medial aspect of the leg as well as I believe a skip lesion and some erythema in the medial aspect of the thigh. She is wearing some tight clothing' s and therefore it is difficult to completely examine the right lower extremity. Wound care has been consulted Dr. Ramirez evaluated the patient with me in the ER. The patient clinically appears to be sick, I will be admitting the patient to the PCU for close monitoring overnight. Her has been explained the plan of care. All questions answered. IV vancomycin and Zosyn ordered. IV fluids ordered 12/13 Patient seen and examined, overnight the blood pressure has remained stable. Mental status improved patient clinically appears better. Hemoglobin dropped a bit as anticipated with hydration and severe sepsis. CT scan does not show any evidence of necrotizing fasciitis patient does have severe cellulitis in the right leg as well as in the left leg. Right worse than the left. Appreciate help from wound care. Continue IV vancomycin and Zosyn. Transfer patient to telemetry status 12/14 Pt seen examined, no acute overnight events, pt sitting in chair comfortably this AM, reading news paper labs stable, slight wosersening of renal function, creat 1.3 Later this AM the patient becamse suddenly tachycardic, hr in 120-130, sinus tachcardia, no pain, no dizziness, bp stable, d dimer is elevated,CTA pending. recent dvt scan and tsh is neg. Pertinent ROS: Denies headache, dizziness Denies chest pain, palpitations Denies cough or shortness of breath Denies abdominal pain, nausea or vomiting. - Constitutional Vitals: Vital Signs Temp Pulse Resp BP Pulse Ox 98.6 F 92 H 17 101/60 98 12/13/17 20:01 12/13/17 14:26 12/14/17 04:01 12/14/17 04:01 12/13/17 20:01 Period Temp Pulse Resp BP Sys/Mayo Pulse Ox Last 24 Hr 98.6 F-98.7 F 92 17-26 98-109/53-67 95-98 Intake and Output 12/13/17 12/14/17 12/14/17 21:59 05:59 13:59 Intake Total 170 / 170 50 / 50 499 / 499 Output Total 300 / 300 350 / 350 Balance -130 / -130 -300 / -300 499 / 499 Weight 193 lb Intake & Output: Intake & Output 12/13/17 12/14/17 12/14/17 21:59 05:59 13:59 Intake Total 170 / 170 50 / 50 499 / 499 Output Total 300 / 300 350 / 350 Balance -130 / -130 -300 / -300 499 / 499 Weight 193 lb Intake: IV 50 / 50 50 / 50 499 / 499 Zosyn 3.375 gm In Dextrose 5% 50 / 50 50 / 50 52 / 52 in Water 50 ml @ 100 mls/hr IV Q6H [facility] Rx#:[id number] Vancomycin 1,500 mg In Sodium 447 / 447 Chloride 0.9% 500 ml @ 333.3 mls/hr IV DAILY [facility] Rx#: [id number] Oral 120 / 120 Output: Void Amount 300 / 300 350 / 350 Other: Meal Dinner Percent of Meal Consumed 100% Feeding Ability Assist with Tray Set Up Exam: Constitutional; Afebrile, cooperative, alert, not in distress. Eyes- No icterus, , No periorbital swelling Ears- Ext ear normal, hearing normal to conversation. Neck- Midline trachea, supple Respiratory system: Air Entry equal on both sides, No crackles or wheezing, no rhonchi. CVS- Rate tachycardic rhythm regular, S1,S2 heard, no gallop, no rub. Abdomen- Soft nontender abdomen, no organomegaly, no tenderness, no guarding or rigidity, MUSIC EDUCATION DIRECTOR- AOOx3, moving all extremities, no gross focal deficit noted. Lower extremities: jamie le wrapped in hossein, edema still present, but tenderness better. Medical - PN: Obj Da - Labs CBC & Chem 7: 12/14/17 03:45 12/14/17 03:45 Labs: Abnormal Lab Results 12/14/17 12/14/17 12/14/17 10:45 03:45 03:45 RBC 3.30 L Hgb 8.9 L Hct 26.8 L RDW 14.9 H MPV Lymph % (Auto) 13.6 L Eos % (Auto) 7.7 H Lymph # (Auto) 1.0 L ESR D-Dimer 3.18 H Carbon Dioxide 19 L BUN Creatinine 1.3 H Glucose 121 H Hemoglobin A1c Uric Acid Calcium 7.8 L Phosphorus 2.1 L C-Reactive Protein NT-Pro-B Natriuret Pep Total Protein 5.8 L Albumin 2.2 L Globulin Albumin/Globulin Ratio 0.6 L Prealbumin Triglycerides 192 H 12/13/17 12/13/17 12/13/17 03:45 03:45 03:45 RBC Hgb Hct RDW MPV Lymph % (Auto) Eos % (Auto) Lymph # (Auto) ESR 83 H D-Dimer Carbon Dioxide 19 L BUN 24 H Creatinine Glucose 146 H Hemoglobin A1c 10.5 H Uric Acid 8.8 H Calcium 7.7 L Phosphorus C-Reactive Protein 9.8 H NT-Pro-B Natriuret Pep Total Protein 5.7 L Albumin 2.2 L Globulin Albumin/Globulin Ratio 0.6 L Prealbumin 6.9 L Triglycerides 170 H 12/13/17 12/12/17 12/12/17 03:45 16:46 16:46 RBC 3.34 L 3.75 L Hgb 8.9 L 10.0 L Hct 27.0 L 30.1 L RDW 15.1 H 14.7 H MPV 7.1 L 7.1 L Lymph % (Auto) 10.0 L 9.4 L Eos % (Auto) Lymph # (Auto) 0.8 L 0.8 L ESR D-Dimer Carbon Dioxide BUN 29 H Creatinine 1.3 H Glucose 119 H Hemoglobin A1c Uric Acid Calcium Phosphorus C-Reactive Protein NT-Pro-B Natriuret Pep 226.0 H Total Protein Albumin 3.0 L Globulin 4.1 H Albumin/Globulin Ratio 0.7 L Prealbumin Triglycerides Meds: Medications Acetaminophen (Tylenol) 650 mg PO Q4-6HP PRN PRN Reason: PAIN/FEVER > 101 Aspirin (Aspirin) 81 mg PO DAILY [facility] Last Admin: 12/14/17 09:05 Dose: 81 mg Dextrose (Dextrose 50%) 0 ml IV UD PRN PRN Reason: Hypoglycemia Diagnostic Test (Pha) (Accu-Chek) 1 each FS ACHS [facility] Last Admin: 12/14/17 12:15 Dose: 1 each Gabapentin (Neurontin) 600 mg PO TID [facility] Last Admin: 12/14/17 09:05 Dose: 600 mg Glucose (Insta-Glucose) 15 gm PO PRN PRN PRN Reason: Hypoglycemia Heparin Sodium (Porcine) (Heparin) 5,000 unit SQ Q12 [facility] Last Admin: 12/14/17 09:05 Dose: 5,000 unit Piperacillin Sod/Tazobactam (Sod 3.375 gm/ Dextrose) 50 mls @ 100 mls/hr IV Q6H [facility] Last Infusion: 12/14/17 12:22 Dose: 0 mls/hr Vancomycin HCl 1,500 mg/ (Sodium Chloride) 500 mls @ 333.3 mls/hr IV DAILY [facility] Last Infusion: 12/14/17 12:15 Dose: Infused Insulin Human Lispro (Humalog) 0 unit SQ ACHS [facility] PRN Reason: Protocol Last Admin: 12/14/17 12:58 Dose: 1 unit Metoprolol Tartrate (Lopressor) 25 mg PO BID [facility] Last Admin: 12/14/17 09:07 Dose: 25 mg Naloxone HCl (Narcan) 0.1 mg IV Q2MIN PRN PRN Reason: Opiate Reversal Oxycodone HCl (Roxicodone) 5 mg PO Q4HP PRN PRN Reason: Pain Last Admin: 12/14/17 07:36 Dose: 5 mg Simvastatin (Zocor) 40 mg PO HS [facility] Last Admin: 12/13/17 20:58 Dose: 40 mg Sodium Chloride (Saline Flush) 10 ml IV Q8 [facility] Last Admin: 12/14/17 05:43 Dose: 10 ml Vancomycin HCl (Vancomycin Per Pharmacy) 1 order IV UD [facility] Medical - PN: A/P - Time Spent With Patient Total time spent is greater than 50% in coordination of care (as documented) at patient's floor/unit and/or counseling patient: - Narrative A/P Narrative: A/P Severe sepsis- sepsis syndrome resolving Severe Cellulitis- clinically improving with preset antibiotic regime continue vanco and zosy, wound care following DM- glucose well controlled HTN- bp stable home medication metoprolol resumed Tachcyardica - etiology? neg tsh, dvt scan was neg recently, has elevated d dmier, get CTA to look for PE, echo done this visit shows normal lv size and function. anxiety? pt denies same, will monitor on tele for now. HLD - continue statin Lymphdemema- chr issues, will need diuretics at discharge should renal function allow. CKD -creat 1.3, was 1.1 yesterday, monitor for now. DVT hep sq Full code Diabetic cardiac diet. Medical - PN: Qual - VTE Deep Vein Thrombosis/Pulmonary Embolism Present on Admission: No
[2017-12-14 14:20] LABS: Basophils # (Auto) 0 K/mcL (0.0-0.3); Basophils % (Auto) 0.5 % (0.0-2.0); Eosinophils # (Auto) 0.6 K/mcL (0.0-0.7); Eosinophils % (Auto) 7.8 % (0.0-7.0); Granulocytes % (Auto) 66.6 % (38.0-78.0); Lymphocytes # (Auto) 1.3 K/mcL (1.5-4.8); Lymphocytes % (Auto) 16.5 % (15.5-49.0); Mean Cell Volume 80.8 fL (80.0-100.0); Mean Corpuscular Hemoglobin 26.6 pg (26.0-34.0); Monocytes # (Auto) 0.7 K/mcL (0.1-0.9); Monocytes % (Auto) 8.6 % (1.0-12.0); Platelet Count 350 K/mcL (140-440); RBC 3.77 M/mcL (4.00-5.20); Red Cell Distribution Width 14.4 % (11.5-14.5)
[2017-12-14 14:39] LABS: ALT/SGPT 6 U/l (0-40); Albumin 2.8 gm/dL (3.2-5.2); Albumin/Globulin Ratio 0.7 (1.0-2.3); Alkaline Phosphatase 71 U/L (39-117); Blood Urea Nitrogen 16 mg/dl (8-23)
[2017-12-14] MEDS ORDERED: IOPAMIDOL 100 ML BOTTLE IV ONE (14:40)
--- NOTE | 2017-12-14 14:49 | Cat Scan Report ---
CLINICAL INFORMATION: Reason for Exam:Pulmonary embolus COMPARISON: None TECHNIQUE: Axial images obtained through the chest. intravenous contrast administration was administered, and scanning was performed during pulmonary arterial phase. Sagittally and coronally reformatted images were obtained. MIP reformatted images. Radiation exposure was limited using dose reduction technology. FINDINGS: The pulmonary arteries are normal with no intraluminal filling defect. The aorta is normal in caliber and there is no aneurysm or dissection. There is a moderate amount calcified plaque in left anterior descending coronary artery. Small amount of plaque is present in the right main coronary. The overall heart size is normal. There is a band of discoid atelectasis above the left diaphragm, within the left lower lobe. Minor subpleural atelectasis is seen in the lateral basal segment of the right lower lobe. Subtle groundglass alveolar opacities are present in the upper lobes, lingula and superior segments of the lower lobes. There is no lobar consolidation. No mass or pleural effusion are present. IMPRESSION: No evidence of pulmonary emboli Mild groundglass alveolar opacities in both lungs. This may be due to alveolitis, hypersensitivity reaction or low-grade pulmonary vascular congestion. Atherosclerotic coronary artery disease Interpreted and Authenticated by: Oneal Atkins 12/14/17
[2017-12-14] MEDS: SILVER SULFADIAZINE CREAM.TOP 25GM TOPICAL SCH (15:30)
[2017-12-14] MEDS ORDERED: METOPROLOL TARTRATE 5 MG/5 ML VIAL IV PRN (16:36)
--- NOTE | 2017-12-14 18:59 | General Surgery Progress Note ---
Subjective Narrative: Note initiated : 12/14/17 at 6:55 pm Service Date, if different from initiated Date: [] Patient: Kenia Marion 67 y/o F admitted on 12/12/17 for Bilateral Lower Extremity Cellulitis. Chief Complaint: []Patient seen along with Elsy SANTANA Inpatient Wound Care nurse. Progress reviewed. Spoke with Dr. Amaya, Hospitalist Physician and Leyda SANTANA. From wound care point of view patient is doing well. Local inflammatory changes especially cellultis and lymphangitis of right LE resolved on aggressive wound care, IV antibiotics and dressing changes. She has developed anther lymphatic fluid filled blister anterio lateral mid third of left leg. She is ALERT, Lucid and cooperative today. Helped the staff with dressing changes. Objective Temp Pulse Resp BP Pulse Ox 96.8 F L 80 18 96/56 97 12/14/17 15:54 12/14/17 15:54 12/14/17 15:54 12/14/17 15:54 12/14/17 15:54 AVSS. Fever / Tachycardia resolved. SIRS responding well to comprehensive treatment. Wound Care : Resolved cellulitis of Right leg. The devitalized skin and organized lymphatic collection of RIGHT leg site was cleaned at bedside with nursing assistance. Wound thoroughly washed with NS and sterile soft brush. Selective debridement of ulcer site was performed. Similarly Left leg was cleaned and blister ruptured and wound base was selectively debrided. Will treat these wounds of both LE with daily dressing changes after cleansing with chlorhexidine and topical application of Silvadene creme. Other medical issues treated under guidance of Hospitalist physician. - Additional Data Intake & Output - Last 24 hours: Intake & Output 12/12/17 12/13/17 12/14/17 12/15/17 05:59 05:59 05:59 05:59 Intake Total 3300 / 3300 1060 / 1060 1117 / 1117 Output Total 930 / 930 933 / 933 850 / 850 Balance 2370 / 2370 127 / 127 267 / 267 Weight 194 lb 6.4 oz 193 lb 193 lb - Labs 12/14/17 13:25 12/14/17 13:25 Diabetes panel 12/14/17 12/14/17 Range/Units 03:45 13:25 Sodium 134 137 (133-145) mmol/L Potassium 4.5 4.6 (3.3-5.1) mmol/L Chloride 104 104 (96-108) mmol/L Carbon Dioxide 19 L 22 (22-30) mmol/L BUN 18 16 (8-23) mg/dl Creatinine 1.3 H 1.1 (0.6-1.1) mg/dl Glucose 121 H 193 H (70-105) mg/dL Calcium 7.8 L 8.2 L (8.6-10.4) mg/dl AST 9 9 (0-37) U/l ALT 6 6 (0-40) U/l Alkaline Phosphatase 61 71 (39-117) U/L Total Protein 5.8 L 6.9 (5.9-8.4) gm/dL Albumin 2.2 L 2.8 L (3.2-5.2) gm/dL Triglycerides 192 H (<150) mg/dl Calcium panel 12/14/17 12/14/17 Range/Units 03:45 13:25 Calcium 7.8 L 8.2 L (8.6-10.4) mg/dl Phosphorus 2.1 L (2.7-4.5) mg/dL Albumin 2.2 L 2.8 L (3.2-5.2) gm/dL Pituitary panel 12/14/17 12/14/17 Range/Units 03:45 13:25 Sodium 134 137 (133-145) mmol/L Potassium 4.5 4.6 (3.3-5.1) mmol/L Chloride 104 104 (96-108) mmol/L Carbon Dioxide 19 L 22 (22-30) mmol/L BUN 18 16 (8-23) mg/dl Creatinine 1.3 H 1.1 (0.6-1.1) mg/dl Glucose 121 H 193 H (70-105) mg/dL Calcium 7.8 L 8.2 L (8.6-10.4) mg/dl Adrenal panel 12/14/17 12/14/17 Range/Units 03:45 13:25 Sodium 134 137 (133-145) mmol/L Potassium 4.5 4.6 (3.3-5.1) mmol/L Chloride 104 104 (96-108) mmol/L Carbon Dioxide 19 L 22 (22-30) mmol/L BUN 18 16 (8-23) mg/dl Creatinine 1.3 H 1.1 (0.6-1.1) mg/dl Glucose 121 H 193 H (70-105) mg/dL Calcium 7.8 L 8.2 L (8.6-10.4) mg/dl Total Bilirubin 0.3 0.3 (0.0-1.0) mg/dL AST 9 9 (0-37) U/l ALT 6 6 (0-40) U/l Alkaline Phosphatase 61 71 (39-117) U/L Total Protein 5.8 L 6.9 (5.9-8.4) gm/dL Albumin 2.2 L 2.8 L (3.2-5.2) gm/dL Assessment and Plan (1) SIRS (systemic inflammatory response syndrome) Problem details: Source of Sepsis is skin and skin structures RIGHT lower lateral leg with CELLULITIS and streaking lymphangitis along medial lower thigh. REVIEWED CT scans. NO gas bubbles. DO NOT suspect deep tissue necrosis. Agree with admission to ICU . Will follow. Status: Acute Current Visit: Yes (2) Dermatitis associated with moisture Problem details: Lymphedema LE Right > Left Status: Acute Current Visit: Yes - Narrative A/P Narrative: Assessment : Progressing well from wound care point of view. Plan: Continue current dressings and wound care. Orders adjusted / changed. - Time Spent With Patient Total time spent is greater than 50% in coordination of care (as documented) at patient's floor/unit and/or counseling patient:
[2017-12-14] MEDS: SIMVASTATIN 40 MG TABLET PO SCH (20:54)
[2017-12-14] MEDS: METOPROLOL TARTRATE 25 MG TABLET PO SCH (21:53)
[2017-12-15] MEDS: PIPERACILLIN SODIUM/TAZOBACTAM 3.375 GM in DEXTROSE 5% IN WATER 50 ML IV SCH ×3 (00:33→14:32)
[2017-12-15 05:26] LABS: Basophils # (Auto) 0 K/mcL (0.0-0.3); Basophils % (Auto) 0.5 % (0.0-2.0); Eosinophils # (Auto) 0.6 K/mcL (0.0-0.7); Eosinophils % (Auto) 7.6 % (0.0-7.0); Granulocytes % (Auto) 60.1 % (38.0-78.0); Lymphocytes # (Auto) 1.5 K/mcL (1.5-4.8); Lymphocytes % (Auto) 21.1 % (15.5-49.0); Mean Cell Volume 80.8 fL (80.0-100.0); Mean Corpuscular HGB Conc 33.1 g/dL (31.0-36.0); Mean Corpuscular Hemoglobin 26.8 pg (26.0-34.0); Monocytes # (Auto) 0.8 K/mcL (0.1-0.9); Monocytes % (Auto) 10.7 % (1.0-12.0); Platelet Count 319 K/mcL (140-440); RBC 3.26 M/mcL (4.00-5.20); Red Cell Distribution Width 14.7 % (11.5-14.5)
[2017-12-15 06:01] LABS: ALT/SGPT 6 U/l (0-40); Albumin 2.2 gm/dL (3.2-5.2); Albumin/Globulin Ratio 0.6 (1.0-2.3); Alkaline Phosphatase 65 U/L (39-117); Bilirubin,Direct < 0.2 mg/dL (0.0-0.3); Blood Urea Nitrogen 17 mg/dl (8-23); Gamma Glutamyl Transpeptidase 29 U/L (5-36); Uric Acid 5.5 mg/dL (2.5-8.0)
[2017-12-15] MEDS: oxyCODONE HCL 5 MG TABLET PO PRN ×2 (06:25→10:14)
[2017-12-15] MEDS: 0.9 % SODIUM CHLORIDE 10 ML SYRINGE IV SCH (06:54)
[2017-12-15] MEDS: INSULIN LISPRO 1 UNIT/0.01 ML UNIT SQ SCH ×2 (09:02→12:08)
[2017-12-15] MEDS: HEPARIN 5,000 UNIT/ML VIAL SQ SCH (09:11)
[2017-12-15] MEDS: ASPIRIN 81 MG TAB.CHEW PO SCH (09:11)
[2017-12-15] MEDS: GABAPENTIN 300 MG CAPSULE PO SCH (09:12)
[2017-12-15] MEDS: METOPROLOL TARTRATE 25 MG TABLET PO SCH (09:12)
[2017-12-15] MEDS ORDERED: MAGNESIUM SULFATE 2 GM/50 ML BAG IV ONE (09:49)
[2017-12-15] MEDS: SILVER SULFADIAZINE CREAM.TOP 25GM TOPICAL SCH (09:52)
[2017-12-15] MEDS: VANCOMYCIN 1,500 MG in 0.9 % SODIUM CHLORIDE 500 ML IV SCH (10:58)
--- NOTE | 2017-12-15 11:20 | General Surgery Progress Note ---
Subjective Patient reports: no new complaints Narrative: Note initiated : 12/15/17 at 11:15 am Service Date, if different from initiated Date: [] Patient: Kenia Marion 67 y/o F admitted on 12/12/17 for Bilateral Lower Extremity Cellulitis. Chief Complaint: [] Patient seen and progress reviewed with Leyda SANTANA and Dr. Amaya. Wound care dressing changes reviewed. Objective Temp Pulse Resp BP Pulse Ox 97.9 F 88 16 106/60 94 12/15/17 07:16 12/14/17 18:56 12/15/17 07:16 12/15/17 09:24 12/15/17 07:16 AVSS. HD stable. Overall recovered well from acute presentation of SIRS. Now stabilized at base line. Chronic Leg wounds bilaterally; LYMPHEDEMA and Post phlebitis syndrome. OPEN wounds after debridement of blisters at bedside. Need daily cleansing with chlorhexidine solution and SILVADENE creme , gauze, Kerlix and DAWN bandage daily. If Discharged, Patien to follow up with wound care center in ONE week . - Additional Data Intake & Output - Last 24 hours: Intake & Output 12/13/17 12/14/17 12/15/17 12/16/17 05:59 05:59 05:59 05:59 Intake Total 3300 / 3300 1060 / 1060 1457 / 1457 250 / 250 Output Total 930 / 930 933 / 933 1200 / 1200 Balance 2370 / 2370 127 / 127 257 / 257 250 / 250 Weight 194 lb 6.4 oz 193 lb 199 lb 4.8 oz - Labs 12/15/17 03:35 12/15/17 03:35 Diabetes panel 12/14/17 12/15/17 Range/Units 13:25 03:35 Sodium 137 137 (133-145) mmol/L Potassium 4.6 4.5 (3.3-5.1) mmol/L Chloride 104 106 (96-108) mmol/L Carbon Dioxide 22 20 L (22-30) mmol/L BUN 16 17 (8-23) mg/dl Creatinine 1.1 1.3 H (0.6-1.1) mg/dl Glucose 193 H 132 H (70-105) mg/dL Calcium 8.2 L 8.2 L (8.6-10.4) mg/dl AST 9 9 (0-37) U/l ALT 6 6 (0-40) U/l Alkaline Phosphatase 71 65 (39-117) U/L Total Protein 6.9 6.1 (5.9-8.4) gm/dL Albumin 2.8 L 2.2 L (3.2-5.2) gm/dL Triglycerides 222 H (<150) mg/dl Calcium panel 12/14/17 12/15/17 Range/Units 13:25 03:35 Calcium 8.2 L 8.2 L (8.6-10.4) mg/dl Phosphorus 2.4 L (2.7-4.5) mg/dL Albumin 2.8 L 2.2 L (3.2-5.2) gm/dL Pituitary panel 12/14/17 12/15/17 Range/Units 13:25 03:35 Sodium 137 137 (133-145) mmol/L Potassium 4.6 4.5 (3.3-5.1) mmol/L Chloride 104 106 (96-108) mmol/L Carbon Dioxide 22 20 L (22-30) mmol/L BUN 16 17 (8-23) mg/dl Creatinine 1.1 1.3 H (0.6-1.1) mg/dl Glucose 193 H 132 H (70-105) mg/dL Calcium 8.2 L 8.2 L (8.6-10.4) mg/dl Adrenal panel 12/14/17 12/15/17 Range/Units 13:25 03:35 Sodium 137 137 (133-145) mmol/L Potassium 4.6 4.5 (3.3-5.1) mmol/L Chloride 104 106 (96-108) mmol/L Carbon Dioxide 22 20 L (22-30) mmol/L BUN 16 17 (8-23) mg/dl Creatinine 1.1 1.3 H (0.6-1.1) mg/dl Glucose 193 H 132 H (70-105) mg/dL Calcium 8.2 L 8.2 L (8.6-10.4) mg/dl Total Bilirubin 0.3 0.2 (0.0-1.0) mg/dL AST 9 9 (0-37) U/l ALT 6 6 (0-40) U/l Alkaline Phosphatase 71 65 (39-117) U/L Total Protein 6.9 6.1 (5.9-8.4) gm/dL Albumin 2.8 L 2.2 L (3.2-5.2) gm/dL Assessment and Plan (1) SIRS (systemic inflammatory response syndrome) Problem details: Source of Sepsis is skin and skin structures RIGHT lower lateral leg with CELLULITIS and streaking lymphangitis along medial lower thigh. REVIEWED CT scans. NO gas bubbles. DO NOT suspect deep tissue necrosis. Agree with admission to ICU . Will follow. Status: Acute Current Visit: Yes (2) Dermatitis associated with moisture Problem details: Lymphedema LE Right > Left Status: Acute Current Visit: Yes - Time Spent With Patient Total time spent is greater than 50% in coordination of care (as documented) at patient's floor/unit and/or counseling patient: Assessment: Satisfactory resolution of SIRS. Patient back at baseline. NEEDS ongoing wound care for bilateral leg wounds. Plan: Dressing changes daily. Clean with Chlorhexidine. Pat Dry. Apply SILVADENE creme to openwounds and cover with gauze, Kerlix bandage DAWN wraps. If discharged f/u at wound care center in ONE week. 15 - 24 minutes
--- NOTE | 2017-12-15 12:30 | Discharge Summary ---
Medical - DS: Prov Patient information: Note initiated : 12/15/17 at 12:20 pm Service Date, if different from initiated Date: [] Patient: Kenia Marion 67 y/o F admitted on 12/12/17 for Bilateral Lower Extremity Cellulitis. Chief Complaint: [] Date of admission: 12/12/17 20:16 Discharge date: 12/15/17 Primary care physician: Vaishali Ambriz Admitting clinician: Mina Amaya Consults: 12/12/17 19:04 Consult to Physician [CONS] Stat Comment: Consulting Provider: Robbie Ramirez Reason For Exam: Physician to Consult 12/12/17 19:05 Consult to Physician [CONS] Stat Comment: Consulting Provider: Mina Amaya Reason For Exam: Physician to Consult Discharging clinician: Mina Amaya Medical - DS: Meds - Discharge Medications Prescriptions: Chlorhexidine Gluconate [Scrub Chlorhexidine Gluconate] 946 ml TP DAILY #946 ml Doxycycline Hyclate [Morgidox] 100 mg PO BID #20 cap Levofloxacin 750 mg PO Q48H #5 tab Magnesium Oxide [Magnesium] 400 mg PO DAILY #30 tab metroNIDAZOLE [Metronidazole] 500 mg PO Q8 #30 tab Active and Home Medications: Home Medications Accu-Chek 1 strip MISC ACHS 05/05/16 [History Confirmed 12/12/17 Last Taken 07/18 21:00] Aspirin [Lo-Dose Aspirin EC] 81 mg PO DAILY 05/05/16 [History Confirmed Last Taken 05/03/16 09:00] Ergocalciferol (Vitamin D2) [Vitamin D2] 50,000 unit PO Q7D 05/05/16 [History Confirmed 12/12/17 Last Taken Unknown] Insulin Aspart [Novolog] 10 unit SQ QPM 05/05/16 [History Confirmed 12/12/17 Last Taken 05/03/16 17:00] Insulin Detemir [Levemir] 16 unit SQ QPM 05/05/16 [History Confirmed 12/12/17 Last Taken 05/03/16 17:00] Loratadine/Pseudoephedrine [Cvs Loratadine-D 24Hr Tablet] 10 mcg PO DAILY [History Confirmed 12/12/17 Last Taken 05/03/16 09:00] Metoprolol Tartrate [Lopressor] 25 mg PO BID 05/05/16 [History Confirmed Last Taken 05/03/16 21:00] Pnv No.122/Iron/Folic Acid [ Multi Tablet] 1 tab PO DAILY 05/05/16 [ History Confirmed 12/12/17 Last Taken 05/03/16 09:00] Simvastatin [Zocor] 40 mg PO HS 05/05/16 [History Confirmed 12/12/17 Last Taken 05/03/16 21:00] metFORMIN [Glucophage] 500 mg PO BIDCC 05/05/16 [History Confirmed 12/12/17 Last Taken 05/03/16 17:00] gabapentin 300 mg capsule 600 mg PO TID cap 05/18/16 [History Confirmed Last Taken Unknown] Medical - DS: Hosp Hospital course: Ms. Marion is a 67 year old F with h/o dm, htn, obesity, renal failure,ckd, hld, chr lymphedema presented to the Er accompanied by her for not feeling well, worsening cellulitis for over 1 week. The patient's first noted the increased swelling in the right leg, the patient was seen at [facility] on the fourth of this month, she was given IV Rocephin and advised to follow-up in the ED with daily IV antibiotics. The patient was again seen on the for worsening cellulitis, at that point in time blistering was noted in the right lower extremity, Bactrim was added. The patient according to the history provided today did not get the IV antibiotics, however does admit to be taking the Bactrim. The patient's had gone to the [facility] came back yesterday, he noted to the patient's cellulitis has gotten worse, patient is shivering she is feeling cold has chills has intermittent shortness of breath especially in the evenings , has had bilateral lower extremity swelling which has gotten worse, and now also has erythematous changes on the left leg. He became concerned and therefore brought the patient to the hospital. He also notes that the patient has been more confused over the last 1 week. The patient has had memory issues in the past however they have gotten significantly worse now. The patient denies any headache changes in vision changes in hearing difficulty in swallowing there is no chest pain, there is some shortness of breath, there is no nausea no vomiting no diarrhea no urinary complaints. The patient denies any abdominal pain. Patient has progressive worsening of swelling in the lower extremities which is a chronic issue for her she usually sleeps I believe in the chair. The patient denies any new skin rashes, she has significant pain in both the lower extremities right more than the left. The patient in the ED is febrile temperature 100.8, tachycardic at 134, blood pressure is stable 136/64 she saturating 98% on room air tachypneic at 24. The patient's labs show normal WBC count of 8.7, hemoglobin is 10, platelets 331. Sodium is 137 potassium 3.8 bicarbonate 22 creatinine is 1.3 leukosis 119. Lactic acid 0.9. Patient was admitted to the hospital for further management The patient underwent CT of the lower extremities which showed severe cellulitics, No DVT on Duplex scanning. She was treated for infection with IV vancomycin and zosyn with very good response. The blood culture was negative, local wound culture only showing staph epidermis/ non pathological lita. Will treat the patient for additional 10 days with levofloxacin, doxycycline and metronidazone, broad coverage per guidelines for complicated diabetic cellulitis. She was followed by Wound care physician Dr Matos, who advised daily wound care with silver silvadene, and chlorhexidine. See his instructions for details patient had one episode of sinus tachycardia in the hospital stay, CT Angio was negative, this spontaneously resolved, the patient is on a beta brant, and it seems she likely had atrial tachycardia, she would benefit from a cardiology evaluation in future should this recur. The patient has CKd with creat 1.3, She was being followed by nephrology in 2016 , will refer back for erick reyes up, I have not started diuretics as bp was normal , soft, once the infection is settled/ bp better, the patient will likely benefit from a low dose diuretic, I will defer this to the PCP/ Cook Tortilla. The patient wanted a hospital bed for the patient, as he felt that she is not able to sleep well in her regular bed and is presently sleeping in a couch, he attributes the present infection to her edema, which is true, however on my eval I am unable to justify a hospital bed, the also threatened the bottle caser regarding a law suit should anything happen to the patient if a hospital bed is not provided. I spoke with the patients and explained that I am unable to prescribe a hospital bed per medicare guidelines, I would defer the need for hospital bed to the patient PCP who would know her chronic conditions much better and if necessary can prescribe one. I spoke to the patients PCP who noted that she perhaps may be able to help the patient with same. Pt will follow up with their clinic today to get the paper work done. no changes have been made in the patients [facility] med list. Discharge diagnosis: severe cellulitis. - Time Spent with Patient Total time spent providing and/or coordinating discharge services: Greater than 30 minutes Medical - DS: Exam - Constitutional Vitals: Vital Signs Temp Pulse Resp BP Pulse Ox 12/15/17 12:00 98.1 F 16 103/59 97 12/15/17 09:24 106/60 12/15/17 07:16 97.9 F 16 111/59 94 12/15/17 05:49 97.8 F 18 115/66 97 12/15/17 00:01 98.2 F 16 109/68 96 12/14/17 21:17 16 109/60 97 12/14/17 18:56 98.3 F 88 18 110/55 97 12/14/17 15:54 96.8 F L 80 18 96/56 97 Intake and Output 12/14/17 12/15/17 12/15/17 21:59 05:59 13:59 Intake Total 518 / 518 340 / 340 250 / 250 Output Total 700 / 700 200 / 200 Balance -182 / -182 140 / 140 250 / 250 Intake: IV 48 / 48 100 / 100 50 / 50 Zosyn 3.375 gm In Dextrose 5% 48 / 48 100 / 100 50 / 50 in Water 50 ml @ 100 mls/hr IV Q6H [facility] Rx#:[id number] Oral 470 / 470 240 / 240 200 / 200 Output: Void Amount 700 / 700 200 / 200 Other: Meal Dinner Breakfast Percent of Meal Consumed 100% 100% Feeding Ability Independent Independent Stool Size Small Moderate Stool Color Brown Brown Stool Consistency Soft Soft Formed Loose # Voids 2 1 # Bowel Movements 1 0 1 Weight 199 lb 4.8 oz Additional comments: Constitutional; Afebrile, cooperative, alert, not in distress. Eyes- No icterus, , No periorbital swelling Ears- Ext ear normal, hearing normal to conversation. Neck- Midline trachea, supple Respiratory system: Air Entry equal on both sides, No crackles or wheezing, no rhonchi. CVS- Rate rhythm regular, S1,S2 heard, no gallop, no rub. 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 Medical - DS: Data Procedures and tests throughout hospitalization: CT lowe extremity IMPRESSION: Severe edema/cellulitis in both legs, right worse than left No evidence of abscess or osteomyelitis No evidence of deep venous thrombosis Duplex No evidence of deep venous thrombosis in either leg. CT A chest IMPRESSION: No evidence of pulmonary emboli Mild groundglass alveolar opacities in both lungs. This may be due to alveolitis, hypersensitivity reaction or low-grade pulmonary vascular congestion. Echo shows normal left ventricular size and function, Pulm HTN at 40-50mmhg Labs on day of discharge: Labs from last 24 hours 12/15/17 12/15/17 12/15/17 08:35 03:35 03:35 WBC 7.3 RBC 3.26 L Hgb 8.7 L Hct 26.3 L MCV 80.8 MCH 26.8 MCHC 33.1 RDW 14.7 H Plt Count 319 MPV 7.1 L Gran % 60.1 Lymph % (Auto) 21.1 [place] % (Auto) 10.7 Eos % (Auto) 7.6 H Baso % (Auto) 0.5 Gran # 4.4 Lymph # (Auto) 1.5 [place] # (Auto) 0.8 Eos # (Auto) 0.6 Baso # (Auto) 0 Sodium 137 Potassium 4.5 Chloride 106 Carbon Dioxide 20 L Anion Gap 11.0 BUN 17 Creatinine 1.3 H GFR Calculation 42 Glucose 132 H Uric Acid 5.5 Calcium 8.2 L Phosphorus 2.4 L Magnesium 1.5 L Total Bilirubin 0.2 Direct Bilirubin < 0.2 GGT 29 AST 9 ALT 6 Alkaline Phosphatase 65 Lactate Dehydrogenase 165 Total Protein 6.1 Albumin 2.2 L Globulin 3.9 H Albumin/Globulin Ratio 0.6 L Triglycerides 222 H Vancomycin Trough 13.3 18 12/14/17 13:25 13:25 WBC 7.8 RBC 3.77 L Hgb 10.1 L Hct 30.5 L MCV 80.8 MCH 26.6 MCHC 33.0 RDW 14.4 Plt Count 350 MPV 6.9 L Gran % 66.6 Lymph % (Auto) 16.5 [place] % (Auto) 8.6 Eos % (Auto) 7.8 H Baso % (Auto) 0.5 Gran # 5.2 Lymph # (Auto) 1.3 L [place] # (Auto) 0.7 Eos # (Auto) 0.6 Baso # (Auto) 0 Sodium 137 Potassium 4.6 Chloride 104 Carbon Dioxide 22 Anion Gap 11.0 BUN 16 Creatinine 1.1 GFR Calculation 51 Glucose 193 H Uric Acid Calcium 8.2 L Phosphorus Magnesium Total Bilirubin 0.3 Direct Bilirubin GGT AST 9 ALT 6 Alkaline Phosphatase 71 Lactate Dehydrogenase Total Protein 6.9 Albumin 2.8 L Globulin 4.1 H Albumin/Globulin Ratio 0.7 L Triglycerides Vancomycin Trough Preliminary micro results at discharge 12/12/17 16:55 Blood Culture - Preliminary Blood 12/12/17 16:46 Blood Culture - Preliminary Blood Medical - DS: A/P - Patient/Caregiver Discharge Instructions Diet: Consistent Carbohydrate Additional Instructions: Daily dressing changes. CLEAN both legs with Chlorhexidine solution from knees to ankles and toes. PAT dry. Apply Silvadene creme to open wound and cover with dry gauze, Kerlix bandage and DAWN wrap from knee to ankle. After discharge follow up at wound care center in ONE week. Follow up with PCP in 1 week Follow up with nephrology, Dr Kowalski in 2 -4 weeks Go to the ER if worsening condition, chest pain, fever, shortness of breath or any other acute concerns. You need to be compliant with medications, I have not made any changes to the [facility] home medication list You need antibiotics for 10 more days, Given the severity of infection, Please take antibiotics as prescribed You are also being prescribed magnesium oxide 400mg once daily for 1 month for magnesium deficiency. Prescriptions: Chlorhexidine Gluconate [Scrub Chlorhexidine Gluconate] 946 ml TP DAILY #946 ml Doxycycline Hyclate [Morgidox] 100 mg PO BID #20 cap Levofloxacin 750 mg PO Q48H #5 tab Magnesium Oxide [Magnesium] 400 mg PO DAILY #30 tab metroNIDAZOLE [Metronidazole] 500 mg PO Q8 #30 tab Other Amb Orders: Physical Therapy at Discharge - General Location: Determined By Patient - Follow up Plan Follow up with: Bethany Kowalski MD [Physician] - (Dr. Kowalski's office is closed for today. I have left a message for them to call you at home to schedule a follow up appointment. If they do not call within 1 week, please call them at .) Vaishali Ambriz [Primary Care Provider] - 12/25/17 3:00 pm (Your appointment is scheduled with Dr. Reyes; Vaishali Ambriz is out of the office.) Robbie Ramirez MD [Physician] - Disposition: Home, Self-Care Prognosis: Fair Rehab Potential: Fair I certify that the patient requires SNF services: No Overall status at discharge: patient is progressing back to baseline Medical - DS: Qual - VTE Deep Vein Thrombosis/Pulmonary Embolism Present on Admission: No
== END 2017-12-15 15:11 | disposition home or self-care (01) | DRG 872 ==
LOC: ED 15:54 → ICU 20:16
PROVIDERS: ADMIT Internal Medicine; ATTEND Internal Medicine

== ENCOUNTER 2018-05-26 14:04 | Inpatient (IN) ==
[2018-05-26] MEDS ORDERED: 0.9 % SODIUM CHLORIDE 1,000 ML IV ONE (14:23)
--- NOTE | 2018-05-26 15:06 | XRay Report ---
CLINICAL INFORMATION: fever COMPARISON: 12/12/2017 and 04/25/2016 FINDINGS: Heart is mildly enlarged. Mediastinum is unremarkable. Pulmonary vessels are mildly distended compared to 04/25/2016 and 12/13/2015 x-rays. No definite edema. Minor bibasilar atelectasis noted. No effusion. IMPRESSION: Mild CHF or volume overload Interpreted and Authenticated by: Jalil Cuevas 05/26/18
--- NOTE | 2018-05-26 15:14 | Emergency Department Note ---
Fever HPI - General Chief Complaint: Fever Stated Complaint: leg pain, swelling, possible infection Time Seen by Provider: 05/26/18 14:31 Source: patient Mode of arrival: ambulatory Limitations: no limitations - History of Present Illness HPI Narrative: Patient presents to ED via EMS with history of fever, chills and redness to the right lower extremity. She has been having diabetic foot ulcers, over the heels on both feet for the last several weeks, she was not really aware of these ulcers but did notice some discharge and drainage from the right heel ulcer just in the last couple of days ago. 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 Generalized weakness today, occasional cough, denies chest pain denies abdominal pain, did eat some food this morning, history of diabetes. History of obesity. - Related Data Home Medications Medication Instructions Recorded Confirmed Accu-Chek 1 strip MISC ACHS 05/05/16 05/26/18 Aspirin [Lo-Dose Aspirin EC] 81 mg PO DAILY 05/05/16 05/26/18 Ergocalciferol (Vitamin D2) 50,000 unit PO Q7D 05/05/16 05/26/18 [Vitamin D2] Insulin Aspart [Novolog] 10 unit SQ QPM 05/05/16 05/26/18 Insulin Detemir [Levemir] 16 unit SQ QPM 05/05/16 05/26/18 Metoprolol Tartrate [Lopressor] 25 mg PO BID 05/05/16 05/26/18 Pnv No.122/Iron/Folic Acid 1 tab PO HS 05/05/16 05/26/18 [ Multi Tablet] Simvastatin [Zocor] 40 mg PO HS 05/05/16 05/26/18 metFORMIN [Glucophage] 1,000 mg PO BIDCC 05/05/16 05/26/18 gabapentin 300 mg capsule 600 mg PO TID cap 05/18/16 05/26/18 Furosemide [Lasix] 40 mg PO BID 05/26/18 05/26/18 Lisinopril 2.5 mg PO DAILY 05/26/18 05/26/18 Magnesium l-Lactate 84 mg PO BID 05/26/18 05/26/18 [place]-3/Dha/Epa/Fish Oil [Fish Oil 2 capsule PO BID 05/26/18 05/26/18 1,000 mg Softgel] Spironolactone [Aldactone] 25 mg PO TID 05/26/18 05/26/18 glipiZIDE [Glipizide ER] 2 tab PO DAILY 05/26/18 05/26/18 Allergies Allergy/AdvReac Type Severity Reaction Status Date / Time venom-honey bee Allergy Severe Anaphylaxis Verified 05/06/16 08:12 [bee venom (honey bee)] No Known Drug Intolerances Allergy Unknown Verified 05/04/16 16:04 Review of Systems All systems ED: reviewed and negative except as stated. Constitutional: Reports: fever, chills ENT ED: Denies: ear pain Cardiovascular: Denies: chest pain Respiratory: Reports: shortness of breath Gastrointestinal: Denies: abdominal pain, nausea, vomiting Genitourinary: Reports: incontinence. Denies: urgency Musculoskeletal: Denies: back pain Integumentary: Reports: lesions. Denies: rash Neurological: Denies: headache Psychiatric: Denies: anxiety Endocrine: Reports: fatigue Hematological/Lymphatic: Denies: easy bleeding Fever PMH - Past Medical History Attestation: Yes: The following information was validated with the patient. Medical history: Reports: DM, hypertension, renal disease, other (Cellulitis) Surgical history ED: Reports: non-contributory, orthopedic, other - Social History smoking status: Current every day smoker Alcohol use: Reports: None Drug use: Reports: none Physical Exam Limitations: no limitations General appearance: alert, in no apparent distress Head: atraumatic, normocephalic, other (General alopecia) Eye: Present: normal appearance, PERRL, EOMI. Absent: nystagmus ENT: normal exam, normal oropharynx, mucous membranes moist, TM's normal bilaterally Chest: Present: normal inspection, symmetric chest wall rise Respiratory: Present: normal lung sounds bilaterally. Absent: respiratory distress Cardiovascular: Present: regular rate, tachycardia Abdominal: Present: soft, hypoactive bowel sounds. Absent: distention, tenderness, guarding Extremities: Present: normal capillary refill, pedal edema, joint swelling, other (bilateral calcaneal heel ulcers measuring about 5 x 5 cm up. The one on the right is with foul discharge and odor. Partially open. The ulceration extends down to the calcaneus bone. There is also significant erythema of the right lower extremity affecting the ankle and foot area. 2+ pedal edema.) Back: Absent: CVA tenderness (R), CVA tenderness (L) Neurological: Present: alert, oriented X3, motor sensory deficit, other ( decreased sensation to the feet bilaterally.) Psychiatric: Present: flat affect Skin: Present: warm, dry, erythema Course Vital Signs Temperature 101.6 F H 05/26/18 14:06 Pulse Rate 112 H 05/26/18 14:06 Blood Pressure 151/79 05/26/18 14:06 Pulse Oximetry (%) 97 05/26/18 14:06 Temperature 101.4 F H 05/26/18 17:07 Pulse Rate 98 H 05/26/18 16:15 Respiratory Rate 24 H 05/26/18 16:15 Blood Pressure 149/66 05/26/18 16:15 Pulse Oximetry (%) 93 05/26/18 16:15 Fever - MDM Narrative Medical decision making narrative: The heel was debrided on the right side up. There was large amount of necrotic tissue that was removed, there was fro very foul-smelling odor coming from the foot. Sedimentation rate was elevated over 100. CT scan done. Radiologist recommended MRI of the foot. She will probably need both feet evaluated as she does have a heel ulcer on the left foot as well. This wound was not addressed but was discussed with the hospitalist. Final diagnosis is cellulitis right lower leg, diabetic foot ulcer suspicious for osteomyelitis. Patient started on antibiotics in the department. Does meet SIRS criteria. - Lab Data Result diagrams: 05/26/18 14:20 05/26/18 14:20 Lab Results 05/26/18 05/26/18 05/26/18 Range/Units 14:20 14:20 14:20 WBC 13.7 H (4.5-11.0) K/mcL RBC 3.15 L (4.00-5.20) M/mcL Hgb 8.6 L (12.0-15.0) g/dL Hct 25.6 L (36.0-48.0) % MCV 81.4 (80.0-100.0) fL MCH 27.4 (26.0-34.0) pg MCHC 33.6 (31.0-36.0) g/dL RDW 15.1 H (11.5-14.5) % Plt Count 343 (140-440) K/mcL MPV 7.3 L (7.4-10.4) fL Total Counted 100 Seg Neutrophils % 80 H (38-78) % Band Neutrophils % 3 (0-10) % Lymphocytes % 11 L (15-49) % Monocytes % (Manual) 6 (1-12) % Platelet Estimate Normal (NORMAL) RBC Morphology Abnorm A (NORMAL) Polychromasia 1+ A (NONE SEEN) Anisocytosis 1+ A (NONE SEEN) ESR (0-20) mm/hr VBG Lactic Acid 1.4 (0.5-2.0) mmol/L Sodium 137 (133-145) mmol/L Potassium 3.4 (3.3-5.1) mmol/L Chloride 100 (96-108) mmol/L Carbon Dioxide 24 (22-30) mmol/L Anion Gap 13.0 (8-16) BUN 17 (8-23) mg/dl Creatinine 1.5 H (0.6-1.1) mg/dl GFR Calculation 35 Glucose 332 H (70-105) mg/dL Calcium 8.1 L (8.6-10.4) mg/dl Total Bilirubin 0.4 (0.0-1.0) mg/dL AST 7 (0-37) U/l ALT < 5 (0-40) U/l Alkaline Phosphatase 120 H (39-117) U/L Total Protein 7.1 (5.9-8.4) gm/dL Albumin 2.5 L (3.2-5.2) gm/dL Globulin 4.6 H (2.2-3.7) gm/dL Albumin/Globulin Ratio 0.5 L (1.0-2.3) Urine Color Urine Appearance Urine pH (5.0-9.0) Ur Specific [place] (1.000-1.035) Urine Protein (NEG) mg/dL Urine Glucose (UA) (NEG) mg/dL Urine Ketones (NEG) mg/dL Urine Occult Blood (<0.03) mg/dL Urine Nitrate (NEG) Urine Bilirubin (NEG) mg/dL Urine Urobilinogen (NEG) mg/dL Ur Leukocyte Esterase (NEG) /uL Urine RBC (0-1) /hpf Urine WBC (0-4) /hpf Ur Squamous Epith Cells (0-4) /hpf Ur Transition Epith Cell (0-2) /hpf Urine Bacteria (0) /hpf Hyaline Casts (0-2) /lpf Urine Mucus (0) /hpf 05/26/18 05/26/18 Range/Units 14:21 15:37 WBC (4.5-11.0) K/mcL RBC (4.00-5.20) M/mcL Hgb (12.0-15.0) g/dL Hct (36.0-48.0) % MCV (80.0-100.0) fL MCH (26.0-34.0) pg MCHC (31.0-36.0) g/dL RDW (11.5-14.5) % Plt Count (140-440) K/mcL MPV (7.4-10.4) fL Total Counted Seg Neutrophils % (38-78) % Band Neutrophils % (0-10) % Lymphocytes % (15-49) % Monocytes % (Manual) (1-12) % Platelet Estimate (NORMAL) RBC Morphology (NORMAL) Polychromasia (NONE SEEN) Anisocytosis (NONE SEEN) ESR > 120 H (0-20) mm/hr VBG Lactic Acid (0.5-2.0) mmol/L Sodium (133-145) mmol/L Potassium (3.3-5.1) mmol/L Chloride (96-108) mmol/L Carbon Dioxide (22-30) mmol/L Anion Gap (8-16) BUN (8-23) mg/dl Creatinine (0.6-1.1) mg/dl GFR Calculation Glucose (70-105) mg/dL Calcium (8.6-10.4) mg/dl Total Bilirubin (0.0-1.0) mg/dL AST (0-37) U/l ALT (0-40) U/l Alkaline Phosphatase (39-117) U/L Total Protein (5.9-8.4) gm/dL Albumin (3.2-5.2) gm/dL Globulin (2.2-3.7) gm/dL Albumin/Globulin Ratio (1.0-2.3) Urine Color Yellow Urine Appearance Clear Urine pH 7.0 (5.0-9.0) Ur Specific [place] 1.016 (1.000-1.035) Urine Protein >=500 A (NEG) mg/dL Urine Glucose (UA) >=500 A (NEG) mg/dL Urine Ketones Neg (NEG) mg/dL Urine Occult Blood >=1.0 A (<0.03) mg/dL Urine Nitrate Neg (NEG) Urine Bilirubin Neg (NEG) mg/dL Urine Urobilinogen Neg (NEG) mg/dL Ur Leukocyte Esterase Neg (NEG) /uL Urine RBC > 182 H (0-1) /hpf Urine WBC 2 (0-4) /hpf Ur Squamous Epith Cells < 1 (0-4) /hpf Ur Transition Epith Cell < 1 (0-2) /hpf Urine Bacteria Few A (0) /hpf Hyaline Casts 2 (0-2) /lpf Urine Mucus Few (0) /hpf Disposition Pt seen by [employer]/PA only: No Clinical Impression: Cellulitis of right leg, Nontraumatic blister of skin Disposition: Xfer As Inpt ([facility]) Condition: Fair Referrals: Vaishali Ambriz [Primary Care Provider] -
[2018-05-26] MEDS ORDERED: PIPERACILLIN SODIUM/TAZOBACTAM 3.375 GM in DEXTROSE 5% IN WATER 50 ML IV ONE (15:17)
[2018-05-26] MEDS ORDERED: VANCOMYCIN 1,000 MG in 0.9 % SODIUM CHLORIDE 250 ML IV ONE (15:18)
[2018-05-26 15:31] LABS: Mean Cell Volume 81.4 fL (80.0-100.0); Mean Corpuscular HGB Conc 33.6 g/dL (31.0-36.0); Mean Corpuscular Hemoglobin 27.4 pg (26.0-34.0); Platelet Count 343 K/mcL (140-440); RBC 3.15 M/mcL (4.00-5.20); Red Cell Distribution Width 15.1 % (11.5-14.5)
[2018-05-26 15:54] LABS: Anisocytosis 1+ (NONE SEEN); Band Neutrophils % 3 % (0-10); Lymphocytes % 11 % (15-49); Monocytes % (Manual) 6 % (1-12); Platelet Estimate NORMAL (NORMAL); RBC Morphology ABNORM (NORMAL); Segmented Neutrophils % 80 % (38-78)
[2018-05-26] MEDS: LACTATED RINGERS 1,000 ML IV SCH ×2 (16:05→19:16)
[2018-05-26 16:07] LABS: ALT/SGPT < 5 U/l (0-40); Albumin 2.5 gm/dL (3.2-5.2); Albumin/Globulin Ratio 0.5 (1.0-2.3); Alkaline Phosphatase 120 U/L (39-117); Blood Urea Nitrogen 17 mg/dl (8-23)
[2018-05-26] MEDS ORDERED: INSULIN GLARGINE, HUMAN 1 UNIT/0.01 ML SQ ONE ×2 (16:29→17:00)
[2018-05-26] MEDS ORDERED: ACETAMINOPHEN 325 MG TABLET PO ONE (16:30)
[2018-05-26 16:31] LABS: Appearance,Urine CLEAR; Bacteria,Urine FEW /hpf (0); Bilirubin,Urine NEG (NEG); Color,Urine YELLOW; Glucose,Urine (UA) >=500 mg/dL (NEG); Leukocyte Esterase,Urine NEG /uL (NEG); Mucus,Urine FEW /hpf (0); Protein,Urine >=500 mg/dL (NEG); Specific Gravity,Urine 1.016 (1.000-1.035); Urine Blood >=1.0 mg/dL (<0.03); Urine Hyaline Cast 2 /lpf (0-2); Urine RBC > 182 /hpf (0-1); Urine Squamous Epithelial Cell < 1 /hpf (0-4); Urine Transitional Epi Cells < 1 /hpf (0-2); Urine WBC 2 /hpf (0-4); Urobilinogen,Urine NEG (NEG)
[2018-05-26] MEDS ORDERED: INSULIN REGULAR, HUMAN 1 UNIT/0.01 ML UNIT SQ ONE (16:44)
--- NOTE | 2018-05-26 17:24 | Internal Med History&Physical ---
Medical - H&P: [facility] Patient information: Note initiated : 05/26/18 at 5:18 pm Service Date, if different from initiated Date: [] Patient: Kenia Marion a 67 y/o F admitted on for leg pain, swelling, possible infection. Chief Complaint: [] History of present illness: Ms. Marion is a 67 year old F With diabetic ulcers on her b/l heels who presents at the urging of her children because her feet are becoming more painful. Patient states little bit more swelling but mostly pain. She did not notice any purulent drainage. denies subjective fevers and chills. In the ED she was evaluated and found to have purulent drainage of the right foot ED physician did probe to the bone. CT was done which could not rule out osteomyelitis. The ulcers have been worsening over the past few weeks. In the ER she was also found to have a fever mild leukocytosis significantly elevated ESR as well as a glucose. She was given IV fluids and started on IV antibiotics with blood cultures obtained and wound culture obtained. Review of Systems: Bilateral heel pain swelling drainage. denies headache/fever/chills/nausea/ vomiting/chest or abdominal pain/cough/dyspnea/diarrhea. Remaining 10 point review of systems reviewed and negative Medical - H&P: PMH Medical history: Medical History Lymphedema (Acute) Cellulitis (Acute) Renal failure (Acute) DM type 2 causing complication (Acute) Dehydration (Acute) HTN (hypertension) (Acute) Acute renal failure (ARF) (Acute) Nontraumatic blister of skin (Acute) Obesity CKD Chronic anemia Surgical history: None Family history: Mother had diabetes father had diabetes Social history: Patient quit smoking 18 years ago denies alcohol use or drug use Sometimes uses a cane when she ambulates Lives at home with her Medical - H&P: Meds Home Medications Medication Instructions Recorded Confirmed Type Accu-Chek 1 strip MISC ACHS 05/05/16 05/26/18 History Aspirin [Lo-Dose Aspirin EC] 81 mg PO DAILY 05/05/16 05/26/18 History Ergocalciferol (Vitamin D2) 50,000 unit PO Q7D 05/05/16 05/26/18 History [Vitamin D2] Insulin Aspart [Novolog] 10 unit SQ QPM 05/05/16 05/26/18 History Insulin Detemir [Levemir] 16 unit SQ QPM 05/05/16 05/26/18 History Metoprolol Tartrate [Lopressor] 25 mg PO BID 05/05/16 05/26/18 History Pnv No.122/Iron/Folic Acid 1 tab PO HS 05/05/16 05/26/18 History [ Multi Tablet] Simvastatin [Zocor] 40 mg PO HS 05/05/16 05/26/18 History metFORMIN [Glucophage] 1,000 mg PO BIDCC 05/05/16 05/26/18 History gabapentin 300 mg capsule 600 mg PO TID cap 05/18/16 05/26/18 History Furosemide [Lasix] 40 mg PO BID 05/26/18 05/26/18 History Lisinopril 2.5 mg PO DAILY 05/26/18 05/26/18 History Magnesium l-Lactate 84 mg PO BID 05/26/18 05/26/18 History [place]-3/Dha/Epa/Fish Oil [Fish Oil 2 capsule PO BID 05/26/18 05/26/18 History 1,000 mg Softgel] Spironolactone [Aldactone] 25 mg PO TID 05/26/18 05/26/18 History glipiZIDE [Glipizide ER] 2 tab PO DAILY 05/26/18 05/26/18 History Allergies Allergy/AdvReac Type Severity Reaction Status Date / Time venom-honey bee Allergy Severe Anaphylaxis Verified 05/06/16 08:12 [bee venom (honey bee)] No Known Drug Intolerances Allergy Unknown Verified 05/04/16 16:04 Medical - H&P: Exam - Constitutional Vitals: Temp Pulse Resp BP Pulse Ox 101.4 F H 98 H 24 H 149/66 93 05/26/18 17:07 05/26/18 16:15 05/26/18 16:15 05/26/18 16:15 05/26/18 16:15 Exam: General: Alert, Awake, No acute Distress, obese Eyes/N/T: EOMI, dry mucous membranes, Head/Neck: neck supple, normocephalic atraumatic CV: RRR, 2/6 SM, normal s1/s2 Pulm: bibase rales mild, no wheezing Abd: soft, nontender, +BS x4 Ext: b/l LE edema 2+, b/l heels with ulcer and right is draining purulent and malodorous discharge, erythema over right with eschar Neuro: Alert, no focal deficits, moves all extremities Skin: warm/dry Medical - H&P: Reslt - Labs CBC & Chem 7: 05/26/18 14:20 05/26/18 14:20 Labs: Short CBC 05/26/18 Range/Units 14:20 WBC 13.7 H (4.5-11.0) K/mcL Hgb 8.6 L (12.0-15.0) g/dL Hct 25.6 L (36.0-48.0) % Plt Count 343 (140-440) K/mcL BMP 05/26/18 14:20 Sodium 137 Potassium 3.4 Chloride 100 Carbon Dioxide 24 BUN 17 Creatinine 1.5 H Glucose 332 H Calcium 8.1 L Liver Function 05/26/18 Range/Units 14:20 Total Bilirubin 0.4 (0.0-1.0) mg/dL AST 7 (0-37) U/l ALT < 5 (0-40) U/l Alkaline Phosphatase 120 H (39-117) U/L Albumin 2.5 L (3.2-5.2) gm/dL Urine 05/26/18 Range/Units 15:37 Urine Color Yellow Urine Appearance Clear Urine pH 7.0 (5.0-9.0) Ur Specific [place] 1.016 (1.000-1.035) Urine Protein >=500 A (NEG) mg/dL Urine Glucose (UA) >=500 A (NEG) mg/dL - Impressions CT of the foot could not rule out osteomyelitis Medical - H&P: A/P - Narrative A/P Narrative: A: *Cellulitis, right heel with diabetic ulcer over the left heel as well, and suspected osteomyelitis of the right calcaneus: *Sepsis: 2/2 above *Diabetes, uncontrolled: *FATIMAH on CKD III (base Cr~1.1-1.3): *HTN: *Anemia, chronic *chronic lymphedema * P: -IV Vanco/Zosyn, pending blood and wound cultures -Status post IV fluids -Continue Levemir and sliding scale insulin with Accu-Cheks every 4 for now -Wound care consult; may need debridement -montor CRP/ESR -MRI Foot pending - -ppx: heparin
[2018-05-26] MEDS ORDERED: PIPERACILLIN SODIUM/TAZOBACTAM 3.375 GM in DEXTROSE 5% IN WATER 50 ML IV SCH (18:26)
[2018-05-26] MEDS ORDERED: ACETAMINOPHEN 325 MG TABLET PO PRN (18:26)
[2018-05-26] MEDS ORDERED: ONDANSETRON 4 MG/2 ML VIAL IV PRN (18:26)
[2018-05-26] MEDS ORDERED: IPRATROPIUM/ALBUTEROL 3 ML AMPUL.NEB NEB PRN (18:26)
[2018-05-26] MEDS ORDERED: DEXTROSE 50% 50 ML VIAL IV PRN (18:45)
[2018-05-26] MEDS ORDERED: VANCOMYCIN PER PHARMACY IV SCH (18:45)
[2018-05-26 19:04] LABS: C-Reactive Protein 16.7 mg/dl (0.0-0.8)
[2018-05-26] MEDS: INSULIN GLARGINE, HUMAN 1 UNIT/0.01 ML SQ SCH (19:13)
[2018-05-26] MEDS: INSULIN LISPRO 1 UNIT/0.01 ML UNIT SQ SCH ×2 (19:14→23:21)
[2018-05-26] MEDS: HEPARIN 5,000 UNIT/ML VIAL SQ SCH (20:08)
[2018-05-26] MEDS: SIMVASTATIN 40 MG TABLET PO SCH (20:08)
[2018-05-26] MEDS: METOPROLOL TARTRATE 25 MG TABLET PO SCH (20:08)
[2018-05-26] MEDS: GABAPENTIN 300 MG CAPSULE PO SCH (20:08)
[2018-05-26] MEDS ORDERED: FISH OIL 1,000 MG CAPSULE PO SCH (21:00)
[2018-05-26 22:14] LABS: Estimated Average Glucose(eAG) 194 mg/dL; Hemoglobin A1C 8.4 % HGB (4.0-6.0)
[2018-05-26] MEDS: PIPERACILLIN SODIUM/TAZOBACTAM 2.25 GM in DEXTROSE 5% IN WATER 50 ML IV SCH (22:47)
[2018-05-26] MEDS: 0.9 % SODIUM CHLORIDE 10 ML SYRINGE IV SCH (22:48)
[2018-05-27] MEDS: PIPERACILLIN SODIUM/TAZOBACTAM 2.25 GM in DEXTROSE 5% IN WATER 50 ML IV SCH ×4 (03:48→21:29)
[2018-05-27] MEDS: INSULIN LISPRO 1 UNIT/0.01 ML UNIT SQ SCH ×5 (03:51→21:30)
[2018-05-27] MEDS: HYDROcodone/APAP 5/325MG TABLET PO PRN ×2 (03:53→22:18)
--- NOTE | 2018-05-27 06:03 | Internal Med Progress Note ---
Medical - PN: Subj Patient information: Note initiated : 05/27/18 at 6:00 am Service Date, if different from initiated Date: [] Patient: Kenia Marion a 67 y/o F admitted on 05/26/18 for leg pain, swelling , possible infection. Chief Complaint: [] Interval history: Ms. Marion is a 67 year old F With diabetic ulcers on her b/l heels who presents at the urging of her children because her feet are becoming more painful. Patient states little bit more swelling but mostly pain. She did not notice any purulent drainage. denies subjective fevers and chills. In the ED she was evaluated and found to have purulent drainage of the right foot ED physician did probe to the bone. CT was done which could not rule out osteomyelitis. The ulcers have been worsening over the past few weeks. In the ER she was also found to have a fever mild leukocytosis significantly elevated ESR as well as a glucose. She was given IV fluids and started on IV antibiotics with blood cultures obtained and wound culture obtained. 05/27 Slept well. foot pain little better. Dressings placed and heel offloading boot was placed. No overnight events. Review of Systems: denies headache/fever/chills/nausea/vomiting/chest or abdominal pain/cough/ dyspnea/diarrhea. Otherwise see above. - Constitutional Vitals: Vital Signs Temp Pulse Resp BP Pulse Ox 98.2 F 85 20 127/69 96 05/27/18 03:40 05/27/18 03:40 05/27/18 03:40 05/27/18 03:40 05/27/18 03:40 Period Temp Pulse Resp BP Sys/[place]o Pulse Ox Last 24 Hr 97.8 F-101.6 F 73-112 16-30 73-151/54-79 93-97 Intake and Output 05/26/18 05/27/18 05/27/18 21:59 05:59 13:59 Intake Total 1300 / 1300 200 / 200 Output Total 900 / 900 Balance 1300 / 1300 -700 / -700 Weight 91.172 kg Intake & Output: Intake & Output 05/26/18 05/27/18 05/27/18 21:59 05:59 13:59 Intake Total 1300 / 1300 200 / 200 Output Total 900 / 900 Balance 1300 / 1300 -700 / -700 Weight 91.172 kg Intake: IV 1300 / 1300 100 / 100 Sodium Chloride 0.9% 1,000 ml @ 1000 / 1000 Wide Open IV BOLUS ONE Rx#: [id number] Zosyn 2.25 gm In Dextrose 5% in 100 / 100 Water 50 ml @ 100 mls/hr IV Q6H JOSE DE JESUS Rx#:[id number] Zosyn 3.375 gm In Dextrose 5% 50 / 50 in Water 50 ml @ 100 mls/hr IV ONCE ONE Rx#:[id number] Oral 100 / 100 Output: Urine Catheter Amount 900 / 900 Other: Meal Dinner Percent of Meal Consumed 50% Feeding Ability Independent Urine Color [place] ([place]) [place] Exam: General: Alert, Awake, No acute Distress, obese Eyes/N/T: EOMI, Head/Neck: neck supple, CV: RRR, 2/6 SM, normal s1/s2 Pulm: no wheezing, no rhonchi Abd: soft, nontender, +BS x4 Ext: b/l LE edema 2+, b/l DM ulcers along heels with dressing in place Neuro: Alert, no focal deficits, moves all extremities Skin: warm/dry Medical - PN: Obj Da - Labs CBC & Chem 7: 05/27/18 05:22 05/27/18 05:22 Labs: Abnormal Lab Results 05/26/18 05/26/18 05/26/18 20:00 15:37 14:21 WBC RBC Hgb Hct RDW MPV Seg Neutrophils % Lymphocytes % RBC Morphology Polychromasia Anisocytosis ESR > 120 H Creatinine Glucose Hemoglobin A1c 8.4 H Calcium Alkaline Phosphatase C-Reactive Protein Albumin Globulin Albumin/Globulin Ratio Urine Protein >=500 A Urine Glucose (UA) >=500 A Urine Occult Blood >=1.0 A Urine RBC > 182 H Urine Bacteria Few A 05/26/18 05/26/18 05/26/18 14:20 14:20 14:20 WBC 13.7 H RBC 3.15 L Hgb 8.6 L Hct 25.6 L RDW 15.1 H MPV 7.3 L Seg Neutrophils % 80 H Lymphocytes % 11 L RBC Morphology Abnorm A Polychromasia 1+ A Anisocytosis 1+ A ESR Creatinine 1.5 H Glucose 332 H Hemoglobin A1c Calcium 8.1 L Alkaline Phosphatase 120 H C-Reactive Protein 16.7 H Albumin 2.5 L Globulin 4.6 H Albumin/Globulin Ratio 0.5 L Urine Protein Urine Glucose (UA) Urine Occult Blood Urine RBC Urine Bacteria Meds: Medications Acetaminophen (Tylenol) 650 mg PO Q6HP PRN PRN Reason: PAIN/FEVER > 101 Hydrocodone Bitart/Acetaminophen ([place] 5/325mg) 1 tab PO Q4HP PRN PRN Reason: PAIN LEVEL 3-6 Last Admin: 05/27/18 03:53 Dose: 1 tab Albuterol/Ipratropium (Duoneb) 3 ml NEB Q4HRT PRN PRN Reason: Dyspnea Aspirin (Aspirin) 81 mg PO DAILY [facility] Dextrose (Dextrose 50%) 50 ml IV UD PRN PRN Reason: Hypoglycemia Diagnostic Test (Pha) (Accu-Chek) 1 each FS Q4 [facility] Last Admin: 05/27/18 03:49 Dose: 1 each Gabapentin (Neurontin) 600 mg PO BID [facility] Last Admin: 05/26/18 20:08 Dose: 600 mg Heparin Sodium (Porcine) (Heparin) 5,000 unit SQ Q12 [facility] Last Admin: 05/26/18 20:08 Dose: 5,000 unit Vancomycin HCl 1,000 mg/ (Sodium Chloride) 250 mls @ 250 mls/hr IV DAILY [facility] Piperacillin Sod/Tazobactam (Sod 2.25 gm/ Dextrose) 50 mls @ 100 mls/hr IV Q6H [facility] Last Infusion: 05/27/18 04:20 Dose: Infused Insulin Glargine (Lantus) 16 unit SQ HS [facility] Last Admin: 05/26/18 19:13 Dose: 16 unit Insulin Human Lispro (Humalog) 0 unit SQ Q4 [facility]; Protocol Last Admin: 05/27/18 03:51 Dose: Not Given Lisinopril (Zestril) 2.5 mg PO DAILY [facility] Metoprolol Tartrate (Lopressor) 25 mg PO BID [facility] Last Admin: 05/26/18 20:08 Dose: 25 mg Ondansetron HCl (Zofran) 4 mg IV Q4HP PRN PRN Reason: Nausea And Vomiting Simvastatin (Zocor) 40 mg PO HS [facility] Last Admin: 05/26/18 20:08 Dose: 40 mg Sodium Chloride (Saline Flush) 10 ml IV Q8 [facility] Last Admin: 05/26/18 22:48 Dose: 10 ml Vancomycin HCl (Vancomycin Per Pharmacy) 1 order IV UD [facility] Medical - PN: A/P - Time Spent With Patient Total time spent is greater than 50% in coordination of care (as documented) at patient's floor/unit and/or counseling patient: - Narrative A/P Narrative: A: *Cellulitis, right heel with diabetic ulcer over the left heel as well, and suspected osteomyelitis of the right calcaneus: - *Sepsis: 2/2 above *Diabetes, uncontrolled: A1c 8.4 -improved with close monitoring *FATIMAH on CKD III (base Cr~1.1-1.3): -1.4<1.5 *HTN: *Anemia, chronic *chronic lymphedema *Hypokalemia/mag: P: -IV Vanco/Zosyn, pending blood and wound cultures -Status post IV fluids -Continue Levemir and SSI -Wound care consult; may need debridement, Dr. Gonzalez aware -ayazor CRP/ESR -MRI Foot pending -Monitor electrolytes -ppx: heparin Medical - PN: Qual - Stroke Symptom Onset Unknown: No - VTE Deep Vein Thrombosis/Pulmonary Embolism Present on Admission: No
[2018-05-27] MEDS: 0.9 % SODIUM CHLORIDE 10 ML SYRINGE IV SCH ×3 (06:43→21:43)
[2018-05-27 07:02] LABS: ALT/SGPT < 5 U/l (0-40); Albumin/Globulin Ratio 0.5 (1.0-2.3); Alkaline Phosphatase 83 U/L (39-117); Bilirubin,Direct < 0.2 mg/dL (0.0-0.3); Blood Urea Nitrogen 15 mg/dl (8-23); Gamma Glutamyl Transpeptidase 26 U/L (5-36)
[2018-05-27] MEDS ORDERED: INSULIN REGULAR, HUMAN 1 UNIT/0.01 ML UNIT SQ SCH (07:30)
--- NOTE | 2018-05-27 07:39 | Cat Scan Report ---
CLINICAL INFORMATION: Diffuse cellulitis with plantar ulcer over the calcaneus. Evaluate for osteomyelitis. TECHNIQUE: 0.625 helical slices were obtained through the right foot and ankle. Following reconstruction, 2.5 mm axial, coronal and sagittal reformatted images were obtained through the foot and ankle and reviewed at bone/soft tissue windows. COMPARISON: None. FINDINGS: Soft tissues show moderate diffuse cellulitis throughout the subcutaneous foot and ankle. There is no evidence of focal abscess. Muscle and fascial planes are otherwise grossly normal. A 16 mm vague region of osteolysis in the subcortical region of anterior calcaneal process has an associated nondisplaced oblique fracture. No other osseous abnormality in the hindfoot or midfoot region. There are multiple subchondral cysts in the region of the medial malleolus - likely degenerative. An old ununited fracture the tip of the medial malleolus is noted. There is subtle cortical step-off involving the first proximal phalanx suspicious for a subtle fracture. Diffuse osteoporosis is noted. There is mild degenerative change in all MTT and interphalangeal joints. Pes planus is noted. Hammertoe deformities second through fifth digits appreciated as well. IMPRESSION: 1. Vague 16 mm region of osteolysis in the anterior calcaneal process with an associated nondisplaced obliquely fracture. This may be related to trauma or, less likely, infection. Suggest: MRI 2. Suspect vague fracture of the distal first proximal phalanx. Please correlate with history of trauma and point tenderness in this region. 3. 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 Diffuse cellulitis, but no evidence of discrete soft tissue abscess. 5. Pes planus and hammertoe deformity second through fifth digits. Mild degenerative change in all interphalangeal and MTT joints Interpreted and Authenticated by: Jalil Cuevas 05/27/18
[2018-05-27] MEDS ORDERED: POTASSIUM CHLORIDE 20 MEQ TABLET PO ONE (07:56)
[2018-05-27] MEDS ORDERED: POTASSIUM CHLORIDE 20 MEQ in DEXTROSE 5% IN WATER 100 ML IV ONE (07:57)
[2018-05-27] MEDS ORDERED: MAGNESIUM SULFATE 2 GM/50 ML BAG IV ONE (08:16)
[2018-05-27 08:51] LABS: Basophils # (Auto) 0 K/mcL (0.0-0.3); Basophils % (Auto) 0.3 % (0.0-2.0); Eosinophils # (Auto) 0.3 K/mcL (0.0-0.7); Eosinophils % (Auto) 2.4 % (0.0-7.0); Lymphocytes % (Auto) 9.1 % (15.5-49.0); Mean Cell Volume 80.2 fL (80.0-100.0); Mean Corpuscular HGB Conc 33.2 g/dL (31.0-36.0); Mean Corpuscular Hemoglobin 26.6 pg (26.0-34.0); Monocytes # (Auto) 0.7 K/mcL (0.1-0.9); Monocytes % (Auto) 6.2 % (1.0-12.0); Platelet Count 329 K/mcL (140-440); RBC 2.85 M/mcL (4.00-5.20); Red Cell Distribution Width 14.6 % (11.5-14.5)
[2018-05-27] MEDS ORDERED: POTASSIUM CHLORIDE 20 MEQ in DEXTROSE 5% IN WATER 250 ML IV ONE (09:00)
[2018-05-27] MEDS: LISINOPRIL 5 MG TABLET PO SCH (10:41)
[2018-05-27] MEDS: GABAPENTIN 300 MG CAPSULE PO SCH ×2 (10:42→21:30)
[2018-05-27] MEDS: METOPROLOL TARTRATE 25 MG TABLET PO SCH ×2 (10:42→21:29)
[2018-05-27] MEDS: ASPIRIN 81 MG TAB.CHEW PO SCH (10:42)
[2018-05-27] MEDS: HEPARIN 5,000 UNIT/ML VIAL SQ SCH ×2 (10:42→21:28)
[2018-05-27] MEDS: VANCOMYCIN 1,000 MG in 0.9 % SODIUM CHLORIDE 250 ML IV SCH (11:34)
--- NOTE | 2018-05-27 12:46 | General Surgery Consult Note ---
History of Present Illness Patient information: Note initiated : 05/27/18 at 12:43 pm Service Date, if different from initiated Date: [] Patient: Kenia Marion 67 y/o F admitted on 05/26/18 for leg pain, swelling , possible infection. Chief Complaint: [] Consult date: 05/27/18 Requesting physician: Jonatan Limon (Wound Care. [facility]) History of present illness: I reviewed the patient's EHR and saw HER along with Kristi registered nurse in room 127 [facility] floor. Patient is a 67 years female. She has insulin-dependent diabetes and PLANTAR pressure ulcers of both feet. She was admitted with foul odor, fever and sepsis / necrosis. She presented to the emergency room with change in her condition, fever AND foul odor coming from the plantar right foot wound. She has diabetic neuropathy and pressure ulcers for long time. Other comorbidities are chronic lymphedema of both legs and onychomycosis both feet toenails Medications and Allergies Home Medications Medication Instructions Recorded Confirmed Type Accu-Chek 1 strip [facility] ACHS 05/05/16 05/26/18 History Aspirin [Lo-Dose Aspirin EC] 81 mg PO DAILY 05/05/16 05/26/18 History Ergocalciferol (Vitamin D2) 50,000 unit PO Q7D 05/05/16 05/26/18 History [Vitamin D2] Insulin Aspart [Novolog] 10 unit SQ QPM 05/05/16 05/26/18 History Insulin Detemir [Levemir] 16 unit SQ QPM 05/05/16 05/26/18 History Metoprolol Tartrate [Lopressor] 25 mg PO BID 05/05/16 05/26/18 History Pnv No.122/Iron/Folic Acid 1 tab PO HS 05/05/16 05/26/18 History [ Multi Tablet] Simvastatin [Zocor] 40 mg PO HS 05/05/16 05/26/18 History metFORMIN [Glucophage] 1,000 mg PO BIDCC 05/05/16 05/26/18 History gabapentin 300 mg capsule 600 mg PO TID cap 05/18/16 05/26/18 History Furosemide [Lasix] 40 mg PO BID 05/26/18 05/26/18 History Lisinopril 2.5 mg PO DAILY 05/26/18 05/26/18 History Magnesium l-Lactate 84 mg PO BID 05/26/18 05/26/18 History Prospect-3/Dha/Epa/Fish Oil [Fish Oil 2 capsule PO BID 05/26/18 05/26/18 History 1,000 mg Softgel] Spironolactone [Aldactone] 25 mg PO TID 05/26/18 05/26/18 History glipiZIDE [Glipizide ER] 2 tab PO DAILY 05/26/18 05/26/18 History Allergies Allergy/AdvReac Type Severity Reaction Status Date / Time venom-honey bee Allergy Severe Anaphylaxis Verified 05/06/16 08:12 [bee venom (honey bee)] No Known Drug Intolerances Allergy Unknown Swelling Verified 05/26/18 19:21 Exam Temp Pulse Resp BP Pulse Ox 97.3 F 85 18 131/74 97 05/27/18 11:00 05/27/18 03:40 05/27/18 11:00 05/27/18 11:00 05/27/18 11:00 - General physical appearance well developed, no distress, no pain, chronically ill - Eyes PERRL, normal ocular movement - ENT normal pinna, normal nares, normal mucosa, no hearing loss, no congestion - Head Head exam IM: Present: atraumatic, normal inspection, normocephalic - Neck no masses, no bruits, trachea midline, no lymphadenopathy, no venous distension - Cardiovascular Cardiovascular exam IM: Present: normal rate and rhythm - Respiratory normal respiratory effort, clear to auscultation - Abdomen Abdomen: Present: soft, non tender, bowel sounds - Integumentary Present: other (she has dry scaly skin on both legs from the calf up to the toes. Chronic lymphedema with dermatitis. She has non-stageable pressure ulcer , deep tissue injury right plantar ulcer with FOUL odor and necrotic surface) - Neurologic Present: other (Mixed diabetic peripheral neuropathy both feet and ankles and legs right side more than left.) - Musculoskeletal Present: other (examined patient in her bed. Nonambulatory at this time. Full range of mobility of both lower extremities.) - Psychiatric Present: oriented to time, oriented to person, oriented to place, speech is normal, memory intact Results - Labs 05/28/18 04:37 05/28/18 04:37 Abnormal lab results 05/26/18 05/26/18 05/26/18 Range/Units 14:20 14:20 14:20 WBC 13.7 H (4.5-11.0) K/mcL RBC 3.15 L (4.00-5.20) M/mcL Hgb 8.6 L (12.0-15.0) g/dL Hct 25.6 L (36.0-48.0) % RDW 15.1 H (11.5-14.5) % MPV 7.3 L (7.4-10.4) fL Gran % (38.0-78.0) % Lymph % (Auto) (15.5-49.0) % Gran # (1.8-8.0) K/mcL Lymph # (Auto) (1.5-4.8) K/mcL Seg Neutrophils % 80 H (38-78) % Lymphocytes % 11 L (15-49) % RBC Morphology Abnorm A (NORMAL) Polychromasia 1+ A (NONE SEEN) Anisocytosis 1+ A (NONE SEEN) ESR (0-20) mm/hr Potassium (3.3-5.1) mmol/L Carbon Dioxide (22-30) mmol/L Creatinine 1.5 H (0.6-1.1) mg/dl Glucose 332 H (70-105) mg/dL Hemoglobin A1c (4.0-6.0) % HGB Calcium 8.1 L (8.6-10.4) mg/dl Magnesium (1.6-2.5) mg/dL Alkaline Phosphatase 120 H (39-117) U/L C-Reactive Protein 16.7 H (0.0-0.8) mg/dl Albumin 2.5 L (3.2-5.2) gm/dL Globulin 4.6 H (2.2-3.7) gm/dL Albumin/Globulin Ratio 0.5 L (1.0-2.3) Triglycerides (<150) mg/dl Urine Protein (NEG) mg/dL Urine Glucose (UA) (NEG) mg/dL Urine Occult Blood (<0.03) mg/dL Urine RBC (0-1) /hpf Urine Bacteria (0) /hpf 05/26/18 05/26/18 05/26/18 Range/Units 14:21 15:37 20:00 WBC (4.5-11.0) K/mcL RBC (4.00-5.20) M/mcL Hgb (12.0-15.0) g/dL Hct (36.0-48.0) % RDW (11.5-14.5) % MPV (7.4-10.4) fL Gran % (38.0-78.0) % Lymph % (Auto) (15.5-49.0) % Gran # (1.8-8.0) K/mcL Lymph # (Auto) (1.5-4.8) K/mcL Seg Neutrophils % (38-78) % Lymphocytes % (15-49) % RBC Morphology (NORMAL) Polychromasia (NONE SEEN) Anisocytosis (NONE SEEN) ESR > 120 H (0-20) mm/hr Potassium (3.3-5.1) mmol/L Carbon Dioxide (22-30) mmol/L Creatinine (0.6-1.1) mg/dl Glucose (70-105) mg/dL Hemoglobin A1c 8.4 H (4.0-6.0) % HGB Calcium (8.6-10.4) mg/dl Magnesium (1.6-2.5) mg/dL Alkaline Phosphatase (39-117) U/L C-Reactive Protein (0.0-0.8) mg/dl Albumin (3.2-5.2) gm/dL Globulin (2.2-3.7) gm/dL Albumin/Globulin Ratio (1.0-2.3) Triglycerides (<150) mg/dl Urine Protein >=500 A (NEG) mg/dL Urine Glucose (UA) >=500 A (NEG) mg/dL Urine Occult Blood >=1.0 A (<0.03) mg/dL Urine RBC > 182 H (0-1) /hpf Urine Bacteria Few A (0) /hpf 05/27/18 05/27/18 Range/Units 05:22 06:52 WBC 11.1 H (4.5-11.0) K/mcL RBC 2.85 L (4.00-5.20) M/mcL Hgb 7.6 L (12.0-15.0) g/dL Hct 22.8 L (36.0-48.0) % RDW 14.6 H (11.5-14.5) % MPV (7.4-10.4) fL Gran % 82.0 H (38.0-78.0) % Lymph % (Auto) 9.1 L (15.5-49.0) % Gran # 9.1 H (1.8-8.0) K/mcL Lymph # (Auto) 1.0 L (1.5-4.8) K/mcL Seg Neutrophils % (38-78) % Lymphocytes % (15-49) % RBC Morphology (NORMAL) Polychromasia (NONE SEEN) Anisocytosis (NONE SEEN) ESR (0-20) mm/hr Potassium 2.9 L* (3.3-5.1) mmol/L Carbon Dioxide 21 L (22-30) mmol/L Creatinine 1.4 H (0.6-1.1) mg/dl Glucose 119 H (70-105) mg/dL Hemoglobin A1c (4.0-6.0) % HGB Calcium 7.9 L (8.6-10.4) mg/dl Magnesium 1.2 L (1.6-2.5) mg/dL Alkaline Phosphatase (39-117) U/L C-Reactive Protein (0.0-0.8) mg/dl Albumin 2.0 L (3.2-5.2) gm/dL Globulin 4.0 H (2.2-3.7) gm/dL Albumin/Globulin Ratio 0.5 L (1.0-2.3) Triglycerides 177 H (<150) mg/dl Urine Protein (NEG) mg/dL Urine Glucose (UA) (NEG) mg/dL Urine Occult Blood (<0.03) mg/dL Urine RBC (0-1) /hpf Urine Bacteria (0) /hpf Diabetes panel 05/26/18 05/26/18 05/26/18 Range/Units 14:20 14:20 20:00 Sodium 137 (133-145) mmol/L Potassium 3.4 (3.3-5.1) mmol/L Chloride 100 (96-108) mmol/L Carbon Dioxide 24 (22-30) mmol/L BUN 17 (8-23) mg/dl Creatinine 1.5 H (0.6-1.1) mg/dl Glucose 332 H (70-105) mg/dL Hemoglobin A1c TNP 8.4 H Calcium 8.1 L (8.6-10.4) mg/dl AST 7 (0-37) U/l ALT < 5 (0-40) U/l Alkaline Phosphatase 120 H (39-117) U/L Total Protein 7.1 (5.9-8.4) gm/dL Albumin 2.5 L (3.2-5.2) gm/dL Triglycerides (<150) mg/dl 05/27/18 Range/Units 05:22 Sodium 138 (133-145) mmol/L Potassium 2.9 L* (3.3-5.1) mmol/L Chloride 104 (96-108) mmol/L Carbon Dioxide 21 L (22-30) mmol/L BUN 15 (8-23) mg/dl Creatinine 1.4 H (0.6-1.1) mg/dl Glucose 119 H (70-105) mg/dL Hemoglobin A1c Calcium 7.9 L (8.6-10.4) mg/dl AST 10 (0-37) U/l ALT < 5 (0-40) U/l Alkaline Phosphatase 83 (39-117) U/L Total Protein 6.0 (5.9-8.4) gm/dL Albumin 2.0 L (3.2-5.2) gm/dL Triglycerides 177 H (<150) mg/dl Calcium panel 05/26/18 05/27/18 Range/Units 14:20 05:22 Calcium 8.1 L 7.9 L (8.6-10.4) mg/dl Phosphorus 2.7 (2.7-4.5) mg/dL Albumin 2.5 L 2.0 L (3.2-5.2) gm/dL Pituitary panel 05/26/18 05/27/18 Range/Units 14:20 05:22 Sodium 137 138 (133-145) mmol/L Potassium 3.4 2.9 L* (3.3-5.1) mmol/L Chloride 100 104 (96-108) mmol/L Carbon Dioxide 24 21 L (22-30) mmol/L BUN 17 15 (8-23) mg/dl Creatinine 1.5 H 1.4 H (0.6-1.1) mg/dl Glucose 332 H 119 H (70-105) mg/dL Calcium 8.1 L 7.9 L (8.6-10.4) mg/dl Adrenal panel 05/26/18 05/27/18 Range/Units 14:20 05:22 Sodium 137 138 (133-145) mmol/L Potassium 3.4 2.9 L* (3.3-5.1) mmol/L Chloride 100 104 (96-108) mmol/L Carbon Dioxide 24 21 L (22-30) mmol/L BUN 17 15 (8-23) mg/dl Creatinine 1.5 H 1.4 H (0.6-1.1) mg/dl Glucose 332 H 119 H (70-105) mg/dL Calcium 8.1 L 7.9 L (8.6-10.4) mg/dl Total Bilirubin 0.4 0.5 (0.0-1.0) mg/dL AST 7 10 (0-37) U/l ALT < 5 < 5 (0-40) U/l Alkaline Phosphatase 120 H 83 (39-117) U/L Total Protein 7.1 6.0 (5.9-8.4) gm/dL Albumin 2.5 L 2.0 L (3.2-5.2) gm/dL All other labs normal. Assessment and Plan (1) Cellulitis Assessment: Neuropathic pressure ulcers plantar right heel WITH necrotic skin and exposed black eschar over the plantar aponeuroses, AND plantar left heel Stage of her pressure ulcer with exposed subcutaneous fat. MRI of right foot shows partial rupture of tibialis posterior tendon and necrotic fascia with sedation of cellulitis radiologically. No clinical evidence of cellulitis. Attempted ankle brachial indices of right foot today. Could not be done as the blood vessels are noncompressible. Plan: Continue ongoing chemical debridement with Santyl collagenase ointment dressings daily. We will consider surgical debridement in the operating room and obtaining deep tissue culture samples for microbiology studies. Patient can bear weight on the toes to ambulate from the bed to the bathroom with a walker. Status: Suspected Priority: Medium Qualifiers: Site of cellulitis: extremity Site of cellulitis of extremity: lower extremity Laterality: right Qualified Code(s): L03.115 - Cellulitis of right lower limb (2) Renal failure Status: Acute Priority: Medium Qualifiers: Renal failure chronicity: acute on chronic (3) DM type 2 causing complication Status: Acute Priority: Medium (4) Dehydration Status: Acute Priority: Medium (5) HTN (hypertension) Status: Chronic Priority: Medium (6) Acute renal failure (ARF) Status: Acute Priority: Medium (7) Uncontrolled diabetes mellitus with foot ulcer Status: Acute Priority: High Comment: Started on IV antibiotics aftre ER debridement and now on SANTYL. Await MRI Right foot
--- NOTE | 2018-05-27 18:15 | Magnetic Resonance Report ---
CLINICAL INFORMATION: Plantar ulcer over the calcaneal region. Evaluate for osteomyelitis COMPARISON: CT 05/26/2018 TECHNIQUE: Axial, T1, T2 and proton density, and sagittal proton density and T1 coronal proton density images were acquired] the right foot and ankle FINDINGS: The region of the plantar cutaneous ulcer, over the posterior calcaneus, there is only underlying cellulitis in the subcutaneous fat extending to the plantar tendon insertion on the calcaneus. There is minor edema in the plantar tendon which could indicate inflammation. There is no evidence of osteomyelitis in the underlying calcaneus nor the remainder of the foot or ankle. On the CT, there was a 16 mm vague region of trabecular rarefaction the anterior process of the calcaneus, but this appears normal on MRI. It likely merely represented focal osteopenia or degeneration. There is also no evidence of fracture through the anterior calcaneal process. This should be considered CT artifact due to motion. There is a small amount of edema is in the first proximal phalanx in a region which had an equivocal fracture on CT, there is no fracture line however. Pes planus and hammertoe deformities of the second through fifth digits appreciated. There is a 5 mm ossification adjacent to the plantar cortex of the first proximal phalanx which slightly bows the flexor tendon. There is also a 20 mm ununited old fracture of the posterior medial malleolus. A subtotal tear of the posterior tibialis tendon near the navicular insertion is noted. Other tendons and sheaths are normal. There is moderate cellulitis the subcutaneous fat throughout the foot and ankle. IMPRESSION: 1. No evidence of osteomyelitis 2. Moderate cellulitis throughout the foot and ankle. No evidence of discrete soft tissue abscess 3. No evidence of calcaneal or first proximal phalangeal fractures which were suspected on CT. This should be considered CT artifact due to motion. 4. Moderate hammertoe deformity second through fifth digits and pes planus 5. 5 mm ossification adjacent to the plantar cortex of the first proximal phalanx mildly bowing the flexor tendon. 6. Subtotal tear of the posterior tibialis tendon near the navicular insertion Interpreted and Authenticated by: Jalil Cuevas 05/27/18
[2018-05-27] MEDS: INSULIN GLARGINE, HUMAN 1 UNIT/0.01 ML SQ SCH (21:29)
[2018-05-27] MEDS: SIMVASTATIN 40 MG TABLET PO SCH (21:29)
[2018-05-28] MEDS: PIPERACILLIN SODIUM/TAZOBACTAM 2.25 GM in DEXTROSE 5% IN WATER 50 ML IV SCH ×4 (03:58→22:12)
[2018-05-28] MEDS: 0.9 % SODIUM CHLORIDE 10 ML SYRINGE IV SCH ×3 (03:59→22:12)
[2018-05-28] MEDS: HYDROcodone/APAP 5/325MG TABLET PO PRN ×2 (04:06→19:22)
[2018-05-28 05:37] LABS: Basophils # (Auto) 0 K/mcL (0.0-0.3); Basophils % (Auto) 0.4 % (0.0-2.0); Eosinophils # (Auto) 0.4 K/mcL (0.0-0.7); Eosinophils % (Auto) 3.8 % (0.0-7.0); Granulocytes % (Auto) 70.7 % (38.0-78.0); Lymphocytes # (Auto) 1.8 K/mcL (1.5-4.8); Lymphocytes % (Auto) 17.4 % (15.5-49.0); Mean Corpuscular HGB Conc 33.2 g/dL (31.0-36.0); Mean Corpuscular Hemoglobin 26.6 pg (26.0-34.0); Monocytes # (Auto) 0.8 K/mcL (0.1-0.9); Monocytes % (Auto) 7.7 % (1.0-12.0); Platelet Count 319 K/mcL (140-440); RBC 2.83 M/mcL (4.00-5.20); Red Cell Distribution Width 15.1 % (11.5-14.5)
[2018-05-28 06:00] LABS: ALT/SGPT < 5 U/l (0-40); Albumin 1.9 gm/dL (3.2-5.2); Albumin/Globulin Ratio 0.5 (1.0-2.3); Alkaline Phosphatase 95 U/L (39-117); Bilirubin,Direct < 0.2 mg/dL (0.0-0.3); Blood Urea Nitrogen 13 mg/dl (8-23); C-Reactive Protein 9.2 mg/dl (0.0-0.8); Gamma Glutamyl Transpeptidase 29 U/L (5-36); Uric Acid 5.6 mg/dL (2.5-8.0)
[2018-05-28] MEDS: INSULIN LISPRO 1 UNIT/0.01 ML UNIT SQ SCH ×4 (07:14→21:23)
--- NOTE | 2018-05-28 07:40 | Internal Med Progress Note ---
Medical - PN: Subj Patient information: Note initiated : 05/28/18 at 7:35 am Service Date, if different from initiated Date: [] Patient: Kenia Marion a 67 y/o F admitted on 05/26/18 for leg pain, swelling , possible infection. Chief Complaint: [] Interval history: Ms. Marion is a 67 year old F With diabetic ulcers on her b/l heels who presents at the urging of her children because her feet are becoming more painful. Patient states little bit more swelling but mostly pain. She did not notice any purulent drainage. denies subjective fevers and chills. In the ED she was evaluated and found to have purulent drainage of the right foot ED physician did probe to the bone. CT was done which could not rule out osteomyelitis. The ulcers have been worsening over the past few weeks. In the ER she was also found to have a fever mild leukocytosis significantly elevated ESR as well as a glucose. She was given IV fluids and started on IV antibiotics with blood cultures obtained and wound culture obtained. 05/27 Slept well. foot pain little better. Dressings placed and heel offloading boot was placed. No overnight events. 05/28 He needs to feel better. Good night sleep. No overnight issues. Wound care monitoring ulcer and following for need for debridement chemical versus manual Review of Systems: denies headache/fever/chills/nausea/vomiting/chest or abdominal pain/cough/ dyspnea/diarrhea. Otherwise see above. - Constitutional Vitals: Vital Signs Temp Pulse Resp BP Pulse Ox 97.4 F 75 20 111/66 96 05/28/18 06:53 05/28/18 06:53 05/28/18 06:53 05/28/18 06:53 05/28/18 06:53 Period Temp Pulse Resp BP Sys/Mayo Pulse Ox Last 24 Hr 97.3 F-99.2 F 74-98 16-20 109-139/57-74 94-97 Intake and Output 05/27/18 05/28/18 05/28/18 21:59 05:59 13:59 Intake Total 1650 / 1650 400 / 400 Output Total 350 / 350 650 / 650 Balance 1300 / 1300 -250 / -250 Weight 93.44 kg Intake & Output: Intake & Output 05/27/18 05/28/18 05/28/18 21:59 05:59 13:59 Intake Total 1650 / 1650 400 / 400 Output Total 350 / 350 650 / 650 Balance 1300 / 1300 -250 / -250 Weight 93.44 kg Intake: IV 50 / 50 100 / 100 Zosyn 2.25 gm In Dextrose 5% in 50 / 50 100 / 100 Water 50 ml @ 100 mls/hr IV Q6H [facility] Rx#:[id number] Oral 1600 / 1600 300 / 300 Output: Urine Catheter Amount 350 / 350 650 / 650 Other: Urine Color Dark Yellow Uretheral (Montiel) Bright Yellow Stool Size Moderate Stool Color Yellow Stool Consistency Formed Exam: General: Alert, Awake, No acute Distress, obese Eyes/N/T: EOMI, Head/Neck: neck supple, CV: RRR, 1/6 SM, normal s1/s2 Pulm: no wheezing, mild bibase rales Abd: soft, nontender, +BS x4 Ext: b/l LE edema 1+, b/l DM ulcers along heels with dressing in place Neuro: Alert, no focal deficits, moves all extremities Skin: warm/dry Medical - PN: Obj Da - Labs CBC & Chem 7: 05/28/18 04:37 05/28/18 04:37 Labs: Abnormal Lab Results 05/28/18 05/28/18 05/28/18 04:37 04:37 04:37 WBC RBC 2.83 L Hgb 7.5 L Hct 22.7 L RDW 15.1 H MPV Gran % Lymph % (Auto) Gran # Lymph # (Auto) Seg Neutrophils % Lymphocytes % RBC Morphology Polychromasia Anisocytosis ESR > 120 H Potassium Carbon Dioxide Creatinine 1.4 H Glucose 145 H Hemoglobin A1c Calcium 7.6 L Phosphorus 2.2 L Magnesium Alkaline Phosphatase C-Reactive Protein 9.2 H Albumin 1.9 L Globulin 4.0 H Albumin/Globulin Ratio 0.5 L Triglycerides 172 H Urine Protein Urine Glucose (UA) Urine Occult Blood Urine RBC Urine Bacteria 05/27/18 05/27/18 05/26/18 06:52 05:22 20:00 WBC 11.1 H RBC 2.85 L Hgb 7.6 L Hct 22.8 L RDW 14.6 H MPV Gran % 82.0 H Lymph % (Auto) 9.1 L Gran # 9.1 H Lymph # (Auto) 1.0 L Seg Neutrophils % Lymphocytes % RBC Morphology Polychromasia Anisocytosis ESR Potassium 2.9 L* Carbon Dioxide 21 L Creatinine 1.4 H Glucose 119 H Hemoglobin A1c 8.4 H Calcium 7.9 L Phosphorus Magnesium 1.2 L Alkaline Phosphatase C-Reactive Protein Albumin 2.0 L Globulin 4.0 H Albumin/Globulin Ratio 0.5 L Triglycerides 177 H Urine Protein Urine Glucose (UA) Urine Occult Blood Urine RBC Urine Bacteria 05/26/18 05/26/18 05/26/18 15:37 14:21 14:20 WBC RBC Hgb Hct RDW MPV Gran % Lymph % (Auto) Gran # Lymph # (Auto) Seg Neutrophils % Lymphocytes % RBC Morphology Polychromasia Anisocytosis ESR > 120 H Potassium Carbon Dioxide Creatinine Glucose Hemoglobin A1c Calcium Phosphorus Magnesium Alkaline Phosphatase C-Reactive Protein 16.7 H Albumin Globulin Albumin/Globulin Ratio Triglycerides Urine Protein >=500 A Urine Glucose (UA) >=500 A Urine Occult Blood >=1.0 A Urine RBC > 182 H Urine Bacteria Few A 05/26/18 05/26/18 14:20 14:20 WBC 13.7 H RBC 3.15 L Hgb 8.6 L Hct 25.6 L RDW 15.1 H MPV 7.3 L Gran % Lymph % (Auto) Gran # Lymph # (Auto) Seg Neutrophils % 80 H Lymphocytes % 11 L RBC Morphology Abnorm A Polychromasia 1+ A Anisocytosis 1+ A ESR Potassium Carbon Dioxide Creatinine 1.5 H Glucose 332 H Hemoglobin A1c Calcium 8.1 L Phosphorus Magnesium Alkaline Phosphatase 120 H C-Reactive Protein Albumin 2.5 L Globulin 4.6 H Albumin/Globulin Ratio 0.5 L Triglycerides Urine Protein Urine Glucose (UA) Urine Occult Blood Urine RBC Urine Bacteria Meds: Medications Acetaminophen (Tylenol) 650 mg PO Q6HP PRN PRN Reason: PAIN/FEVER > 101 Hydrocodone Bitart/Acetaminophen ([place] 5/325mg) 1 tab PO Q4HP PRN PRN Reason: PAIN LEVEL 3-6 Last Admin: 05/28/18 04:06 Dose: 1 tab Albuterol/Ipratropium (Duoneb) 3 ml NEB Q4HRT PRN PRN Reason: Dyspnea Aspirin (Aspirin) 81 mg PO DAILY JOSE DE JESUS Last Admin: 05/27/18 10:42 Dose: 81 mg Collagenase (Santyl Top Oint) 1 dose TOPICAL DAILY [facility] Dextrose (Dextrose 50%) 50 ml IV UD PRN PRN Reason: Hypoglycemia Diagnostic Test (Pha) (Accu-Chek) 1 each FS ACHS [facility] Last Admin: 05/28/18 07:14 Dose: 1 each Gabapentin (Neurontin) 600 mg PO BID [facility] Last Admin: 05/27/18 21:30 Dose: 600 mg Heparin Sodium (Porcine) (Heparin) 5,000 unit SQ Q12 [facility] Last Admin: 05/27/18 21:28 Dose: 5,000 unit Vancomycin HCl 1,000 mg/ (Sodium Chloride) 250 mls @ 250 mls/hr IV DAILY [facility] Last Admin: 05/27/18 11:34 Dose: 250 mls/hr Piperacillin Sod/Tazobactam (Sod 2.25 gm/ Dextrose) 50 mls @ 100 mls/hr IV Q6H [facility] Last Infusion: 05/28/18 04:35 Dose: Infused Insulin Glargine (Lantus) 16 unit SQ [facility] Last Admin: 05/27/18 21:29 Dose: 16 unit Insulin Human Lispro (Humalog) 0 unit SQ [facility]; Protocol Last Admin: 05/28/18 07:14 Dose: Not Given Lisinopril (Zestril) 2.5 mg PO DAILY [facility] Last Admin: 05/27/18 10:41 Dose: 2.5 mg Metoprolol Tartrate (Lopressor) 25 mg PO BID [facility] Last Admin: 05/27/18 21:29 Dose: 25 mg Ondansetron HCl (Zofran) 4 mg IV Q4HP PRN PRN Reason: Nausea And Vomiting Simvastatin (Zocor) 40 mg PO HS [facility] Last Admin: 05/27/18 21:29 Dose: 40 mg Sodium Chloride (Saline Flush) 10 ml IV Q8 [facility] Last Admin: 05/28/18 03:59 Dose: 10 ml Vancomycin HCl (Vancomycin Per Pharmacy) 1 order IV [facility] Medical - PN: A/P - Time Spent With Patient Total time spent is greater than 50% in coordination of care (as documented) at patient's floor/unit and/or counseling patient: - Narrative A/P Narrative: A: *Cellulitis, right heel with diabetic ulcer over the left heel as well: -MRI no Osteomyelitis only cellulitis throughout foot/ankle, no abscess *Sepsis: 2/2 above. Resolved -leukocytosis resolved, now afebrile, BC neg x24 *Diabetes, uncontrolled: A1c 8.4 -improved with close monitoring *FATIMAH on CKD III (base Cr~1.1-1.3): -stable *HTN: *Anemia, chronic *chronic lymphedema *Hypokalemia/mag: resolved P: -IV Vanco/Zosyn, pending blood and wound cultures -Status post IV fluids, restart home diuretics -Continue Levemir and SSI -Wound care following; Dr. Gonzalez; chemical vs manual debridement -Monitor electrolytes -ppx: heparin Medical - PN: Qual - Stroke Symptom Onset Unknown: No - VTE Deep Vein Thrombosis/Pulmonary Embolism Present on Admission: No
[2018-05-28] MEDS: GABAPENTIN 300 MG CAPSULE PO SCH ×2 (09:28→21:22)
[2018-05-28] MEDS: ASPIRIN 81 MG TAB.CHEW PO SCH (09:28)
[2018-05-28] MEDS: VANCOMYCIN 1,000 MG in 0.9 % SODIUM CHLORIDE 250 ML IV SCH (09:29)
[2018-05-28] MEDS: HEPARIN 5,000 UNIT/ML VIAL SQ SCH ×2 (09:29→21:23)
[2018-05-28] MEDS: LISINOPRIL 5 MG TABLET PO SCH (09:30)
[2018-05-28] MEDS: METOPROLOL TARTRATE 25 MG TABLET PO SCH ×2 (09:30→21:21)
[2018-05-28] MEDS: SPIRONOLACTONE 25 MG TABLET PO SCH ×3 (09:31→21:21)
[2018-05-28] MEDS: FUROSEMIDE 40 MG TABLET PO SCH ×2 (09:31→21:21)
[2018-05-28] MEDS: COLLAGENASE TOP OINT TUBE 30GM TOPICAL SCH (11:00)
--- NOTE | 2018-05-28 16:37 | General Surgery Progress Note ---
Subjective Patient reports: other (Patient was seen on rounds this morning along with Jackie RN and inpatient wound care nurse.) Narrative: Note initiated : 05/28/18 at 4:35 pm Service Date, if different from initiated Date: [] Patient: Kenia Marion 67 y/o F admitted on 05/26/18 for leg pain, swelling , possible infection. Chief Complaint: [] Objective Temp Pulse Resp BP Pulse Ox 97.8 F 59 L 16 138/72 96 05/28/18 15:00 05/28/18 11:18 05/28/18 15:00 05/28/18 15:00 05/28/18 15:00 AVSS well. Uneventful night last night. Local wound care ongoing. MRI report reviewed. WOUND cultures mixed skin lita. HERSON could not be done noncompressible blood vessels. - Additional Data Intake & Output - Last 24 hours: Intake & Output 05/26/18 05/27/18 05/28/18 05/29/18 05:59 05:59 05:59 05:59 Intake Total 1500 / 1500 2350 / 2350 660 / 660 Output Total 900 / 900 1000 / 1000 825 / 825 Balance 600 / 600 1350 / 1350 -165 / -165 Weight 201 lb 206 lb 206 lb - Labs 05/28/18 04:37 05/28/18 04:37 Diabetes panel 05/28/18 Range/Units 04:37 Sodium 136 (133-145) mmol/L Potassium 3.5 (3.3-5.1) mmol/L Chloride 103 (96-108) mmol/L Carbon Dioxide 23 (22-30) mmol/L BUN 13 (8-23) mg/dl Creatinine 1.4 H (0.6-1.1) mg/dl Glucose 145 H (70-105) mg/dL Calcium 7.6 L (8.6-10.4) mg/dl AST 9 (0-37) U/l ALT < 5 (0-40) U/l Alkaline Phosphatase 95 (39-117) U/L Total Protein 5.9 (5.9-8.4) gm/dL Albumin 1.9 L (3.2-5.2) gm/dL Triglycerides 172 H (<150) mg/dl Calcium panel 05/28/18 Range/Units 04:37 Calcium 7.6 L (8.6-10.4) mg/dl Phosphorus 2.2 L (2.7-4.5) mg/dL Albumin 1.9 L (3.2-5.2) gm/dL Pituitary panel 05/28/18 Range/Units 04:37 Sodium 136 (133-145) mmol/L Potassium 3.5 (3.3-5.1) mmol/L Chloride 103 (96-108) mmol/L Carbon Dioxide 23 (22-30) mmol/L BUN 13 (8-23) mg/dl Creatinine 1.4 H (0.6-1.1) mg/dl Glucose 145 H (70-105) mg/dL Calcium 7.6 L (8.6-10.4) mg/dl Adrenal panel 05/28/18 Range/Units 04:37 Sodium 136 (133-145) mmol/L Potassium 3.5 (3.3-5.1) mmol/L Chloride 103 (96-108) mmol/L Carbon Dioxide 23 (22-30) mmol/L BUN 13 (8-23) mg/dl Creatinine 1.4 H (0.6-1.1) mg/dl Glucose 145 H (70-105) mg/dL Calcium 7.6 L (8.6-10.4) mg/dl Total Bilirubin 0.3 (0.0-1.0) mg/dL AST 9 (0-37) U/l ALT < 5 (0-40) U/l Alkaline Phosphatase 95 (39-117) U/L Total Protein 5.9 (5.9-8.4) gm/dL Albumin 1.9 L (3.2-5.2) gm/dL Assessment and Plan (1) Cellulitis Status: Suspected Assessment and plan: Assessment: No acute interval changes. Plan: Continue current treatment. We will review her MRI with the radiologist tomorrow and make recommendations about operating room debridement. Current Visit: No (2) Renal failure Status: Acute Current Visit: No (3) DM type 2 causing complication Status: Acute Current Visit: No (4) Dehydration Status: Acute Current Visit: No (5) HTN (hypertension) Status: Chronic Current Visit: No (6) Acute renal failure (ARF) Status: Acute Current Visit: No (7) Uncontrolled diabetes mellitus with foot ulcer Problem details: Started on IV antibiotics aftre ER debridement and now on SANTYL. Await MRI Right foot Status: Acute Current Visit: Yes - Time Spent With Patient Total time spent is greater than 50% in coordination of care (as documented) at patient's floor/unit and/or counseling patient:
[2018-05-28] MEDS: SIMVASTATIN 40 MG TABLET PO SCH (21:22)
[2018-05-28] MEDS: INSULIN GLARGINE, HUMAN 1 UNIT/0.01 ML SQ SCH (21:23)
[2018-05-29] MEDS: PIPERACILLIN SODIUM/TAZOBACTAM 2.25 GM in DEXTROSE 5% IN WATER 50 ML IV SCH ×5 (04:08→23:23)
[2018-05-29] MEDS: 0.9 % SODIUM CHLORIDE 10 ML SYRINGE IV SCH ×3 (04:08→21:08)
[2018-05-29] MEDS: HYDROcodone/APAP 5/325MG TABLET PO PRN ×2 (04:42→14:58)
[2018-05-29 07:04] LABS: Basophils # (Auto) 0 K/mcL (0.0-0.3); Basophils % (Auto) 0.3 % (0.0-2.0); Eosinophils # (Auto) 0.4 K/mcL (0.0-0.7); Eosinophils % (Auto) 4.2 % (0.0-7.0); Granulocytes % (Auto) 72.6 % (38.0-78.0); Lymphocytes # (Auto) 1.7 K/mcL (1.5-4.8); Mean Cell Volume 80.3 fL (80.0-100.0); Mean Corpuscular HGB Conc 33.4 g/dL (31.0-36.0); Mean Corpuscular Hemoglobin 26.8 pg (26.0-34.0); Monocytes # (Auto) 0.7 K/mcL (0.1-0.9); Monocytes % (Auto) 6.9 % (1.0-12.0); Platelet Count 332 K/mcL (140-440); RBC 2.88 M/mcL (4.00-5.20); Red Cell Distribution Width 15.2 % (11.5-14.5)
[2018-05-29 07:39] LABS: ALT/SGPT < 5 U/l (0-40); Albumin 2.1 gm/dL (3.2-5.2); Albumin/Globulin Ratio 0.5 (1.0-2.3); Alkaline Phosphatase 112 U/L (39-117); Bilirubin,Direct < 0.2 mg/dL (0.0-0.3); Blood Urea Nitrogen 16 mg/dl (8-23); Gamma Glutamyl Transpeptidase 27 U/L (5-36); Uric Acid 5.5 mg/dL (2.5-8.0)
[2018-05-29] MEDS ORDERED: INSULIN GLARGINE, HUMAN 1 UNIT/0.01 ML SQ ONE (07:58)
[2018-05-29] MEDS ORDERED: MAGNESIUM OXIDE 400 MG TABLET PO ONE (08:00)
[2018-05-29] MEDS ORDERED: 0.9 % SODIUM CHLORIDE 500 ML IV STA (08:03)
--- NOTE | 2018-05-29 08:04 | Internal Med Progress Note ---
Medical - PN: Subj Patient information: Note initiated : 05/29/18 at 7:55 am Service Date, if different from initiated Date: [] Patient: Kenia Marion a 67 y/o F admitted on 05/26/18 for leg pain, swelling , possible infection. Chief Complaint: [] Interval history: Ms. Marion is a 67 year old F With diabetic ulcers on her b/l heels who presents at the urging of her children because her feet are becoming more painful. Patient states little bit more swelling but mostly pain. She did not notice any purulent drainage. denies subjective fevers and chills. In the ED she was evaluated and found to have purulent drainage of the right foot ED physician did probe to the bone. CT was done which could not rule out osteomyelitis. The ulcers have been worsening over the past few weeks. In the ER she was also found to have a fever mild leukocytosis significantly elevated ESR as well as a glucose. She was given IV fluids and started on IV antibiotics with blood cultures obtained and wound culture obtained. 05/27 Slept well. foot pain little better. Dressings placed and heel offloading boot was placed. No overnight events. 05/28 He needs to feel better. Good night sleep. No overnight issues. Wound care monitoring ulcer and following for need for debridement chemical versus manual 05/29 Sleeping okay. Dressings intact. Renal function little worse likely mild hypovolemia holding diuretics and give gentle fluids today. Review of Systems: denies headache/fever/chills/nausea/vomiting/chest or abdominal pain/cough/ dyspnea/diarrhea. Otherwise see above. - Constitutional Vitals: Vital Signs Temp Pulse Resp BP Pulse Ox 97.6 F 81 16 120/68 96 05/29/18 06:55 05/29/18 06:55 05/29/18 06:55 05/29/18 06:55 05/29/18 06:55 Period Temp Pulse Resp BP Sys/Mayo Pulse Ox Last 24 Hr 97.6 F-98.4 F 59-91 12-24 120-138/65-73 94-96 Intake and Output 05/28/18 05/29/18 05/29/18 21:59 05:59 13:59 Intake Total 710 / 710 350 / 350 Output Total 1300 / 1300 1250 / 1250 Balance -590 / -590 -900 / -900 Weight 93.894 kg Intake & Output: Intake & Output 05/28/18 05/29/18 05/29/18 21:59 05:59 13:59 Intake Total 710 / 710 350 / 350 Output Total 1300 / 1300 1250 / 1250 Balance -590 / -590 -900 / -900 Weight 93.894 kg Intake: IV 50 / 50 100 / 100 Zosyn 2.25 gm In Dextrose 5% in 50 / 50 100 / 100 Water 50 ml @ 100 mls/hr IV Q6H [facility] Rx#:[id number] Oral 660 / 660 250 / 250 Output: Urine Catheter Amount 700 / 700 Void Amount 600 / 600 1250 / 1250 Other: Percent of Meal Consumed 100% Feeding Ability Independent Urine Appearance Clear Clear Urine Color Pale Pale # Voids 4 Exam: General: Alert, Awake, No acute Distress, obese Eyes/N/T: EOMI, Head/Neck: neck supple, CV: RRR, 2/6 SM, normal s1/s2 Pulm: no wheezing, minimal left base rales s Abd: soft, nontender, +BS x4 Ext: b/l LE edema 1+, b/l DM ulcers along heels with dressing in place Neuro: Alert, no focal deficits, moves all extremities Skin: warm/dry Medical - PN: Obj Da - Labs CBC & Chem 7: 05/29/18 05:12 05/29/18 05:12 Labs: Abnormal Lab Results 05/29/18 05/29/18 05/28/18 05:12 05:12 04:37 WBC RBC 2.88 L 2.83 L Hgb 7.7 L 7.5 L Hct 23.2 L 22.7 L RDW 15.2 H 15.1 H MPV Gran % Lymph % (Auto) Gran # Lymph # (Auto) Seg Neutrophils % Lymphocytes % RBC Morphology Polychromasia Anisocytosis ESR Potassium Carbon Dioxide Creatinine 1.7 H Glucose 151 H Hemoglobin A1c Calcium 8.0 L Phosphorus 2.5 L Magnesium 1.5 L Alkaline Phosphatase C-Reactive Protein Albumin 2.1 L Globulin 4.2 H Albumin/Globulin Ratio 0.5 L Triglycerides 241 H Urine Protein Urine Glucose (UA) Urine Occult Blood Urine RBC Urine Bacteria 05/28/18 05/28/18 05/27/18 04:37 04:37 06:52 WBC 11.1 H RBC 2.85 L Hgb 7.6 L Hct 22.8 L RDW 14.6 H MPV Gran % 82.0 H Lymph % (Auto) 9.1 L Gran # 9.1 H Lymph # (Auto) 1.0 L Seg Neutrophils % Lymphocytes % RBC Morphology Polychromasia Anisocytosis ESR > 120 H Potassium Carbon Dioxide Creatinine 1.4 H Glucose 145 H Hemoglobin A1c Calcium 7.6 L Phosphorus 2.2 L Magnesium Alkaline Phosphatase C-Reactive Protein 9.2 H Albumin 1.9 L Globulin 4.0 H Albumin/Globulin Ratio 0.5 L Triglycerides 172 H Urine Protein Urine Glucose (UA) Urine Occult Blood Urine RBC Urine Bacteria 05/27/18 05/26/18 05/26/18 05:22 20:00 15:37 WBC RBC Hgb Hct RDW MPV Gran % Lymph % (Auto) Gran # Lymph # (Auto) Seg Neutrophils % Lymphocytes % RBC Morphology Polychromasia Anisocytosis ESR Potassium 2.9 L* Carbon Dioxide 21 L Creatinine 1.4 H Glucose 119 H Hemoglobin A1c 8.4 H Calcium 7.9 L Phosphorus Magnesium 1.2 L Alkaline Phosphatase C-Reactive Protein Albumin 2.0 L Globulin 4.0 H Albumin/Globulin Ratio 0.5 L Triglycerides 177 H Urine Protein >=500 A Urine Glucose (UA) >=500 A Urine Occult Blood >=1.0 A Urine RBC > 182 H Urine Bacteria Few A 05/26/18 05/26/18 05/26/18 14:21 14:20 14:20 WBC 13.7 H RBC 3.15 L Hgb 8.6 L Hct 25.6 L RDW 15.1 H MPV 7.3 L Gran % Lymph % (Auto) Gran # Lymph # (Auto) Seg Neutrophils % 80 H Lymphocytes % 11 L RBC Morphology Abnorm A Polychromasia 1+ A Anisocytosis 1+ A ESR > 120 H Potassium Carbon Dioxide Creatinine Glucose Hemoglobin A1c Calcium Phosphorus Magnesium Alkaline Phosphatase C-Reactive Protein 16.7 H Albumin Globulin Albumin/Globulin Ratio Triglycerides Urine Protein Urine Glucose (UA) Urine Occult Blood Urine RBC Urine Bacteria 05/26/18 14:20 WBC RBC Hgb Hct RDW MPV Gran % Lymph % (Auto) Gran # Lymph # (Auto) Seg Neutrophils % Lymphocytes % RBC Morphology Polychromasia Anisocytosis ESR Potassium Carbon Dioxide Creatinine 1.5 H Glucose 332 H Hemoglobin A1c Calcium 8.1 L Phosphorus Magnesium Alkaline Phosphatase 120 H C-Reactive Protein Albumin 2.5 L Globulin 4.6 H Albumin/Globulin Ratio 0.5 L Triglycerides Urine Protein Urine Glucose (UA) Urine Occult Blood Urine RBC Urine Bacteria Meds: Medications Acetaminophen (Tylenol) 650 mg PO Q6HP PRN PRN Reason: PAIN/FEVER > 101 Hydrocodone Bitart/Acetaminophen ([place] 5/325mg) 1 tab PO Q4HP PRN PRN Reason: PAIN LEVEL 3-6 Last Admin: 05/29/18 04:42 Dose: 1 tab Albuterol/Ipratropium (Duoneb) 3 ml NEB Q4HRT PRN PRN Reason: Dyspnea Aspirin (Aspirin) 81 mg PO DAILY [facility] Last Admin: 05/28/18 09:28 Dose: 81 mg Collagenase (Santyl Top Oint) 1 dose TOPICAL DAILY [facility] Last Admin: 05/28/18 11:00 Dose: 1 dose Dextrose (Dextrose 50%) 50 ml IV UD PRN PRN Reason: Hypoglycemia Diagnostic Test (Pha) (Accu-Chek) 1 each FS [facility] Last Admin: 05/28/18 21:21 Dose: 1 each Furosemide (Lasix) 40 mg PO BID [facility] Last Admin: 05/28/18 21:21 Dose: 40 mg Gabapentin (Neurontin) 600 mg PO BID [facility] Last Admin: 05/28/18 21:22 Dose: 600 mg Heparin Sodium (Porcine) (Heparin) 5,000 unit SQ Q12 [facility] Last Admin: 05/28/18 21:23 Dose: 5,000 unit Vancomycin HCl 1,000 mg/ (Sodium Chloride) 250 mls @ 250 mls/hr IV DAILY [facility] Last Infusion: 05/28/18 13:26 Dose: Infused Piperacillin Sod/Tazobactam (Sod 2.25 gm/ Dextrose) 50 mls @ 100 mls/hr IV Q6H [facility] Last Infusion: 05/29/18 04:40 Dose: Infused Insulin Glargine (Lantus) 16 unit SQ HS [facility] Last Admin: 05/28/18 21:23 Dose: 16 unit Insulin Human Lispro (Humalog) 0 unit SQ [facility]; Protocol Last Admin: 05/28/18 21:23 Dose: 9 unit Lisinopril (Zestril) 2.5 mg PO DAILY [facility] Last Admin: 05/28/18 09:30 Dose: Not Given Metoprolol Tartrate (Lopressor) 25 mg PO BID [facility] Last Admin: 05/28/18 21:21 Dose: 25 mg Ondansetron HCl (Zofran) 4 mg IV Q4HP PRN PRN Reason: Nausea And Vomiting Simvastatin (Zocor) 40 mg PO HS [facility] Last Admin: 05/28/18 21:22 Dose: 40 mg Sodium Chloride (Saline Flush) 10 ml IV Q8 [facility] Last Admin: 05/29/18 04:08 Dose: 10 ml Spironolactone (Aldactone) 25 mg PO TID [facility] Last Admin: 05/28/18 21:21 Dose: 25 mg Vancomycin HCl (Vancomycin Per Pharmacy) 1 order IV UD [facility] Medical - PN: A/P - Time Spent With Patient Total time spent is greater than 50% in coordination of care (as documented) at patient's floor/unit and/or counseling patient: - Narrative A/P Narrative: A: *Cellulitis, right heel with diabetic ulcer over the left heel as well: -MRI no Osteomyelitis only cellulitis throughout foot/ankle, no abscess -wound Cx no specific pathogens, mrsa screen neg *Sepsis: 2/2 above. Resolved -leukocytosis resolved, now afebrile, BC neg x24 *Diabetes, uncontrolled: A1c 8.4 -improved with close monitoring *FATIMAH on CKD III (base Cr~1.1-1.3): -worsened today *Anemia, chronic *HTN: *chronic lymphedema *Hypokalemia/mag: resolved P: -IV Vanco d/c, con Zosyn, pending blood and wound cultures --Continue Levemir (increase) and SSI -Wound care following; Dr. Gonzalez; chemical vs manual debridement -Monitor electrolytes -hold diuretics and check urine lytes -ppx: heparin Medical - PN: Qual - Stroke Symptom Onset Unknown: No - VTE Deep Vein Thrombosis/Pulmonary Embolism Present on Admission: No
[2018-05-29] MEDS: ASPIRIN 81 MG TAB.CHEW PO SCH (08:19)
[2018-05-29] MEDS: HEPARIN 5,000 UNIT/ML VIAL SQ SCH ×2 (08:19→21:05)
[2018-05-29] MEDS: GABAPENTIN 300 MG CAPSULE PO SCH ×2 (08:20→21:03)
[2018-05-29] MEDS: METOPROLOL TARTRATE 25 MG TABLET PO SCH ×2 (08:20→21:03)
[2018-05-29] MEDS: INSULIN LISPRO 1 UNIT/0.01 ML UNIT SQ SCH ×4 (08:47→21:05)
--- NOTE | 2018-05-29 11:55 | General Surgery Progress Note ---
Subjective Patient reports: no new complaints Narrative: Note initiated : 05/29/18 at 11:53 am Service Date, if different from initiated Date: [] Patient: Kenia Marion 67 y/o F admitted on 05/26/18 for leg pain, swelling , possible infection. Chief Complaint: [] I saw this patient on rounds with Kristi SANTANA. I have reviewed notes from physical and occupational therapists and gone over her lab results. MRI seen and report checked. Discussed the situation with hospitalist physician . Patient does not have any new complaints. She had an uneventful night. Her local wound care is ongoing. Objective Temp Pulse Resp BP Pulse Ox 97.5 F 79 18 122/65 97 05/29/18 11:42 05/29/18 11:42 05/29/18 11:42 05/29/18 11:42 05/29/18 11:42 AVSS. No changes in general physical examination. Patient is compliant with instructions from physical therapist and occupational therapist. Laboratory results reveal CRP to be trending down. Prealbumin results are awaited. Chronic anemia multifactorial. Some elevation of creatinine. Fluids adjusted by the hospitalist physician. Wound care is ongoing. She now requires surgical operating room debridement in the OR with pulse lavage irrigation and deep tissue biopsies of right heel ulcer. I will clean both her legs from the knee down to the toes. - Additional Data Intake & Output - Last 24 hours: Intake & Output 05/27/18 05/28/18 05/29/18 05/30/18 05:59 05:59 05:59 05:59 Intake Total 1500 / 1500 2350 / 2350 1360 / 1360 Output Total 900 / 900 1000 / 1000 2550 / 2550 325 / 325 Balance 600 / 600 1350 / 1350 -1190 / -1190 -325 / -325 Weight 201 lb 206 lb 207 lb - Labs 05/29/18 05:12 05/29/18 05:12 Diabetes panel 05/29/18 Range/Units 05:12 Sodium 137 (133-145) mmol/L Potassium 3.4 (3.3-5.1) mmol/L Chloride 100 (96-108) mmol/L Carbon Dioxide 25 (22-30) mmol/L BUN 16 (8-23) mg/dl Creatinine 1.7 H (0.6-1.1) mg/dl Glucose 151 H (70-105) mg/dL Calcium 8.0 L (8.6-10.4) mg/dl AST 9 (0-37) U/l ALT < 5 (0-40) U/l Alkaline Phosphatase 112 (39-117) U/L Total Protein 6.3 (5.9-8.4) gm/dL Albumin 2.1 L (3.2-5.2) gm/dL Triglycerides 241 H (<150) mg/dl Calcium panel 05/29/18 Range/Units 05:12 Calcium 8.0 L (8.6-10.4) mg/dl Phosphorus 2.5 L (2.7-4.5) mg/dL Albumin 2.1 L (3.2-5.2) gm/dL Pituitary panel 05/29/18 Range/Units 05:12 Sodium 137 (133-145) mmol/L Potassium 3.4 (3.3-5.1) mmol/L Chloride 100 (96-108) mmol/L Carbon Dioxide 25 (22-30) mmol/L BUN 16 (8-23) mg/dl Creatinine 1.7 H (0.6-1.1) mg/dl Glucose 151 H (70-105) mg/dL Calcium 8.0 L (8.6-10.4) mg/dl Adrenal panel 05/29/18 Range/Units 05:12 Sodium 137 (133-145) mmol/L Potassium 3.4 (3.3-5.1) mmol/L Chloride 100 (96-108) mmol/L Carbon Dioxide 25 (22-30) mmol/L BUN 16 (8-23) mg/dl Creatinine 1.7 H (0.6-1.1) mg/dl Glucose 151 H (70-105) mg/dL Calcium 8.0 L (8.6-10.4) mg/dl Total Bilirubin 0.3 (0.0-1.0) mg/dL AST 9 (0-37) U/l ALT < 5 (0-40) U/l Alkaline Phosphatase 112 (39-117) U/L Total Protein 6.3 (5.9-8.4) gm/dL Albumin 2.1 L (3.2-5.2) gm/dL Assessment and Plan (1) Cellulitis Status: Suspected Assessment and plan: Assessment: No acute interval changes. Plan: Continue current treatment. We will review her MRI with the radiologist tomorrow and make recommendations about operating room debridement. Current Visit: No (2) Renal failure Status: Acute Current Visit: No (3) DM type 2 causing complication Status: Acute Current Visit: No (4) Dehydration Status: Acute Current Visit: No (5) HTN (hypertension) Status: Chronic Current Visit: No (6) Acute renal failure (ARF) Status: Acute Current Visit: No (7) Uncontrolled diabetes mellitus with foot ulcer Problem details: Started on IV antibiotics aftre ER debridement and now on SANTYL. Await MRI Right foot Status: Acute Current Visit: Yes - Narrative A/P Narrative: Assessment; satisfactory progress. Patient now ready for or debridement and deep tissue biopsies for targeted treatment and continuing supportive care. Plan: For OR 05/30/2018 morning. - Time Spent With Patient Total time spent is greater than 50% in coordination of care (as documented) at patient's floor/unit and/or counseling patient: 15 - 24 minutes
[2018-05-29 13:13] LABS: Appearance,Urine CLEAR; Bacteria,Urine 0 /hpf (0); Bilirubin,Urine NEG (NEG); Color,Urine STRAW; Glucose,Urine (UA) 50 mg/dL (NEG); Leukocyte Esterase,Urine NEG /uL (NEG); Mucus,Urine FEW /hpf (0); Protein,Urine 100 mg/dL (NEG); Specific Gravity,Urine 1.011 (1.000-1.035); Urine Blood 0.2 mg/dL (<0.03); Urine Hyaline Cast 5 /lpf (0-2); Urine RBC 25 /hpf (0-1); Urine Squamous Epithelial Cell < 1 /hpf (0-4); Urine WBC 1 /hpf (0-4); Urobilinogen,Urine NEG (NEG)
[2018-05-29] MEDS: COLLAGENASE TOP OINT TUBE 30GM TOPICAL SCH (14:59)
[2018-05-29] MEDS ORDERED: INSULIN GLARGINE, HUMAN 1 UNIT/0.01 ML SQ SCH (21:00)
[2018-05-29] MEDS: SIMVASTATIN 40 MG TABLET PO SCH (21:03)
[2018-05-30] MEDS: HYDROcodone/APAP 5/325MG TABLET PO PRN ×3 (00:01→20:41)
[2018-05-30] MEDS: 0.9 % SODIUM CHLORIDE 10 ML SYRINGE IV SCH ×3 (04:55→22:05)
[2018-05-30] MEDS: PIPERACILLIN SODIUM/TAZOBACTAM 2.25 GM in DEXTROSE 5% IN WATER 50 ML IV SCH ×3 (04:55→17:56)
[2018-05-30] MEDS: INSULIN LISPRO 1 UNIT/0.01 ML UNIT SQ SCH ×5 (06:56→22:01)
--- NOTE | 2018-05-30 06:58 | Internal Med Progress Note ---
Medical - PN: Subj Patient information: Note initiated : 05/30/18 at 6:53 am Service Date, if different from initiated Date: [] Patient: Kenia Marion a 67 y/o F admitted on 05/26/18 for leg pain, swelling , possible infection. Chief Complaint: [] Interval history: Ms. Marion is a 67 year old F With diabetic ulcers on her b/l heels who presents at the urging of her children because her feet are becoming more painful. Patient states little bit more swelling but mostly pain. She did not notice any purulent drainage. denies subjective fevers and chills. In the ED she was evaluated and found to have purulent drainage of the right foot ED physician did probe to the bone. CT was done which could not rule out osteomyelitis. The ulcers have been worsening over the past few weeks. In the ER she was also found to have a fever mild leukocytosis significantly elevated ESR as well as a glucose. She was given IV fluids and started on IV antibiotics with blood cultures obtained and wound culture obtained. 05/27 Slept well. foot pain little better. Dressings placed and heel offloading boot was placed. No overnight events. 05/28 He needs to feel better. Good night sleep. No overnight issues. Wound care monitoring ulcer and following for need for debridement chemical versus manual 05/29 Sleeping okay. Dressings intact. Renal function little worse likely mild hypovolemia holding diuretics and give gentle fluids today. 05/30 No overnight events, no new complaints. Will be going to the OR shortly for debridement. Review of Systems: denies headache/fever/chills/nausea/vomiting/chest or abdominal pain/cough/ dyspnea/diarrhea. Otherwise see above. - Constitutional Vitals: Vital Signs Temp Pulse Resp BP Pulse Ox 98.1 F 78 16 130/60 93 05/30/18 04:28 05/30/18 04:28 05/30/18 04:28 05/30/18 04:28 05/30/18 04:28 Period Temp Pulse Resp BP Sys/Mayo Pulse Ox Last 24 Hr 97.5 F-99.2 F 78-103 12-18 110-130/60-71 93-97 Intake and Output 05/29/18 05/30/18 05/30/18 21:59 05:59 13:59 Intake Total 100 / 100 400 / 400 Output Total 600 / 600 650 / 650 Balance -500 / -500 -250 / -250 Weight 91.852 kg Intake & Output: Intake & Output 05/29/18 05/30/18 05/30/18 21:59 05:59 13:59 Intake Total 100 / 100 400 / 400 Output Total 600 / 600 650 / 650 Balance -500 / -500 -250 / -250 Weight 91.852 kg Intake: IV 100 / 100 100 / 100 Zosyn 2.25 gm In Dextrose 5% in 100 / 100 100 / 100 Water 50 ml @ 100 mls/hr IV Q6H [facility] Rx#:[id number] Oral 300 / 300 Output: Void Amount 600 / 600 650 / 650 Other: Urine Appearance Clear Urine Color Straw Bright Yellow Urine Odor Normal Exam: General: Alert, Awake, No acute Distress, obese Eyes/N/T: EOMI, Head/Neck: neck supple, CV: RRR, 2/6 SM, normal s1/s2 Pulm: no wheezing, minimal left base rales s Abd: soft, nontender, +BS x4 Ext: b/l LE edema mild b/l LE, b/l DM ulcers along heels with dressing in place Neuro: Alert, no focal deficits, moves all extremities Skin: warm/dry Medical - PN: Obj Da - Labs CBC & Chem 7: 05/29/18 05:12 05/30/18 04:20 Labs: Abnormal Lab Results 05/29/18 05/29/18 05/29/18 11:35 05:12 05:12 WBC RBC 2.88 L Hgb 7.7 L Hct 23.2 L RDW 15.2 H Gran % Lymph % (Auto) Gran # Lymph # (Auto) ESR Potassium Carbon Dioxide Creatinine 1.7 H Glucose 151 H Calcium 8.0 L Phosphorus 2.5 L Magnesium 1.5 L C-Reactive Protein Albumin 2.1 L Globulin 4.2 H Albumin/Globulin Ratio 0.5 L Triglycerides 241 H Urine Protein 100 A Urine Glucose (UA) 50 A Urine Occult Blood 0.2 A Urine RBC 25 H Hyaline Casts 5 H 05/28/18 05/28/18 05/28/18 04:37 04:37 04:37 WBC RBC 2.83 L Hgb 7.5 L Hct 22.7 L RDW 15.1 H Gran % Lymph % (Auto) Gran # Lymph # (Auto) ESR > 120 H Potassium Carbon Dioxide Creatinine 1.4 H Glucose 145 H Calcium 7.6 L Phosphorus 2.2 L Magnesium C-Reactive Protein 9.2 H Albumin 1.9 L Globulin 4.0 H Albumin/Globulin Ratio 0.5 L Triglycerides 172 H Urine Protein Urine Glucose (UA) Urine Occult Blood Urine RBC Hyaline Casts 05/27/18 05/27/18 06:52 05:22 WBC 11.1 H RBC 2.85 L Hgb 7.6 L Hct 22.8 L RDW 14.6 H Gran % 82.0 H Lymph % (Auto) 9.1 L Gran # 9.1 H Lymph # (Auto) 1.0 L ESR Potassium 2.9 L* Carbon Dioxide 21 L Creatinine 1.4 H Glucose 119 H Calcium 7.9 L Phosphorus Magnesium 1.2 L C-Reactive Protein Albumin 2.0 L Globulin 4.0 H Albumin/Globulin Ratio 0.5 L Triglycerides 177 H Urine Protein Urine Glucose (UA) Urine Occult Blood Urine RBC Hyaline Casts Meds: Medications Acetaminophen (Tylenol) 650 mg PO Q6HP PRN PRN Reason: PAIN/FEVER > 101 Hydrocodone Bitart/Acetaminophen (Watson 5/325mg) 1 tab PO Q4HP PRN PRN Reason: PAIN LEVEL 3-6 Last Admin: 05/30/18 00:01 Dose: 1 tab Albuterol/Ipratropium (Duoneb) 3 ml NEB Q4HRT PRN PRN Reason: Dyspnea Aspirin (Aspirin) 81 mg PO DAILY [facility] Last Admin: 05/29/18 08:19 Dose: 81 mg Collagenase (Santyl Top Oint) 1 dose TOPICAL DAILY [facility] Last Admin: 05/29/18 14:59 Dose: 1 dose Dextrose (Dextrose 50%) 50 ml IV UD PRN PRN Reason: Hypoglycemia Diagnostic Test (Pha) (Accu-Chek) 1 each FS ACHS [facility] Last Admin: 05/30/18 04:45 Dose: 1 each Gabapentin (Neurontin) 600 mg PO BID [facility] Last Admin: 05/29/18 21:03 Dose: 600 mg Heparin Sodium (Porcine) (Heparin) 5,000 unit SQ Q12 [facility] Last Admin: 05/29/18 21:05 Dose: 5,000 unit Piperacillin Sod/Tazobactam (Sod 2.25 gm/ Dextrose) 50 mls @ 100 mls/hr IV Q6H [facility] Last Infusion: 05/30/18 05:30 Dose: Infused Gentamicin Sulfate 80 mg/Clindamycin Phosphate 600 mg/Bacitracin 50,000 unit/ Sodium Chloride 3,006 mls @ 0 mls/hr IRR ONCE [facility] Stop: 05/30/18 12:00 Insulin Glargine (Lantus) 24 unit SQ HS [facility] Last Admin: 05/29/18 21:05 Dose: 24 unit Insulin Human Lispro (Humalog) 0 unit SQ ACHS [facility]; Protocol Last Admin: 05/29/18 21:05 Dose: 9 unit Metoprolol Tartrate (Lopressor) 25 mg PO BID [facility] Last Admin: 05/29/18 21:03 Dose: 25 mg Ondansetron HCl (Zofran) 4 mg IV Q4HP PRN PRN Reason: Nausea And Vomiting Simvastatin (Zocor) 40 mg PO HS [facility] Last Admin: 05/29/18 21:03 Dose: 40 mg Sodium Chloride (Saline Flush) 10 ml IV Q8 [facility] Last Admin: 05/30/18 04:55 Dose: 10 ml Medical - PN: A/P - Time Spent With Patient Total time spent is greater than 50% in coordination of care (as documented) at patient's floor/unit and/or counseling patient: - Narrative A/P Narrative: A: *Cellulitis, right heel with diabetic ulcer over the left heel as well: -MRI no Osteomyelitis only cellulitis throughout foot/ankle, no abscess -wound Cx no specific pathogens, mrsa screen neg, BC neg *Sepsis: 2/2 above. Resolved -leukocytosis resolved, now afebrile, BC neg x24 *Diabetes, uncontrolled: A1c 8.4 -improved with close monitoring *FATIMAH on CKD III (): -1.7<1.7 *Anemia, chronic *HTN: *chronic lymphedema *Hypokalemia/mag: improved *malnutrition: prealbumin 6.9 P: -Con Zosyn, -to OR for debridement today -Continue Levemir (increased) and SSI -Wound care following; Dr. Gonzalez; chemical vs manual debridement -Monitor electrolytes -hold diuretics given renal fxn -dietary consult -ppx: heparin Medical - PN: Qual - Stroke Symptom Onset Unknown: No - VTE Deep Vein Thrombosis/Pulmonary Embolism Present on Admission: No
[2018-05-30 07:36] LABS: ALT/SGPT < 5 U/l (0-40); Albumin 2.1 gm/dL (3.2-5.2); Albumin/Globulin Ratio 0.5 (1.0-2.3); Alkaline Phosphatase 91 U/L (39-117); Bilirubin,Direct < 0.2 mg/dL (0.0-0.3); Blood Urea Nitrogen 18 mg/dl (8-23); Gamma Glutamyl Transpeptidase 29 U/L (5-36); Uric Acid 5.3 mg/dL (2.5-8.0)
[2018-05-30] MEDS ORDERED: GENTAMICIN SULFATE 80 MG, CLINDAMYCIN 600 MG, BACITRACIN 50,000 UNIT in SODIUM CHLORIDE... IRR SCH (08:00)
[2018-05-30] MEDS ORDERED: 0.9 % SODIUM CHLORIDE 750 ML IV STA (08:00)
[2018-05-30] MEDS ORDERED: MAGNESIUM SULFATE 2 GM/50 ML BAG IV ONE (09:00)
[2018-05-30] MEDS ORDERED: ONDANSETRON 4 MG/2 ML VIAL IV ONE (09:05)
[2018-05-30] MEDS ORDERED: MIDAZOLAM 2 MG/2 ML VIAL IV ONE (09:05)
[2018-05-30] MEDS ORDERED: DEXAMETHASONE 10 MG/ML VIAL IV ONE (09:05)
[2018-05-30] MEDS ORDERED: PROPOFOL 200 MG/20 ML VIAL IV ONE (09:05)
[2018-05-30] MEDS ORDERED: LIDOCAINE HCL/PF 100 MG/5 ML SYRINGE IV ONE (09:05)
[2018-05-30] MEDS ORDERED: NALOXONE HCL 0.4 MG/ML VIAL IV PRN (09:24)
[2018-05-30] MEDS ORDERED: fentaNYL 100 MCG/2 ML VIAL IV PRN (09:24)
[2018-05-30] MEDS ORDERED: ONDANSETRON 4 MG/2 ML VIAL IV PRN ×2 (09:24→11:28)
[2018-05-30] MEDS ORDERED: IPRATROPIUM/ALBUTEROL 3 ML AMPUL.NEB NEB PRN ×2 (09:24→11:28)
[2018-05-30] MEDS ORDERED: FLUMAZENIL 0.1 MG/ML ML IV PRN (09:24)
[2018-05-30] MEDS ORDERED: LACTATED RINGERS 250 ML IV PRN (09:24)
[2018-05-30] MEDS ORDERED: MEPERIDINE 25 MG/ML SYRINGE IV PRN (09:24)
[2018-05-30] MEDS ORDERED: PROMETHAZINE 25 MG/ML VIAL IV PRN (09:24)
[2018-05-30] MEDS ORDERED: BENZOCAINE/MENTHOL 1 LOZENGE PO PRN (09:24)
[2018-05-30] MEDS ORDERED: LACTATED RINGERS 1,000 ML IV SCH (09:30)
[2018-05-30] MEDS: METOPROLOL TARTRATE 25 MG TABLET PO SCH ×2 (11:00→20:57)
[2018-05-30] MEDS: ASPIRIN 81 MG TAB.CHEW PO SCH (11:00)
[2018-05-30] MEDS: COLLAGENASE TOP OINT TUBE 30GM TOPICAL SCH (11:00)
[2018-05-30] MEDS: GABAPENTIN 300 MG CAPSULE PO SCH ×2 (11:00→20:41)
[2018-05-30] MEDS: HEPARIN 5,000 UNIT/ML VIAL SQ SCH ×2 (11:00→20:45)
--- NOTE | 2018-05-30 11:12 | Brief Operative Note ---
Date of procedure: 05/30/18 Pre-op diagnosis: Sepsis. Necrotizing infection Right heel, DFU Nonstageable Post-op diagnosis: same Procedure: Surgical Excisional Necrosis Debridement, Pulse lavage irrigation, Deep tissue biopsies, cultures and BONE biopsy calcaneum Wound size 6 x 8 CM Grafts/Implants: No Anesthesia: MAC Findings: Full thickness necrosis skin and subcutaneous tissue AND FASCIA wound extends to bone Morin 3 Complications: none Surgeon: Robbie Ramirez Estimated blood loss (cc): 15 Specimens Removed/Pathology: other (Skin, sub cutneous adipose Soft tissue, tendon, bone) Condition: stable Disposition: floor (Procwedure well tolerated.)
[2018-05-30] MEDS ORDERED: DEXTROSE 50% 50 ML VIAL IV PRN (11:28)
[2018-05-30] MEDS ORDERED: ACETAMINOPHEN 325 MG TABLET PO PRN (11:28)
--- NOTE | 2018-05-30 11:51 | Operative Note ---
DATE OF OPERATION: 05/30/2018 PREOPERATIVE DIAGNOSES: Sepsis necrotizing skin and soft tissue infection, right heel. Nonstageable diabetic foot ulcer, right heel posterior aspect plantar area. POSTOPERATIVE DIAGNOSES: 1. Sepsis necrotizing skin and soft tissue infection, right heel. Nonstageable diabetic foot ulcer, right heel posterior aspect plantar area. 2. The necrosis area extends through the skin, subcutaneous adipose tissue, fascia and aponeurosis. It is extending up to the calcaneus bone which is exposed in the wound. PROCEDURE: 1. Surgical excision debridement of the necrotic tissue. 2. Pulse lavage irrigation with antibiotic solution. 3. Deep tissue biopsies, cultures and bone biopsy of the calcaneum. SURGEON: Robbie Ramirez M.D. WOUND SIZE: 6 x 8 cm. ANESTHESIA: General MAC. BLOOD LOSS: About 15 mL. PROCEDURE NOTE: After obtaining informed consent, patient was taken to the operating room. She was placed supine on the operating table. Timeout was called. General anesthetic administered uneventfully. First, both legs were widely cleaned, prepped and draped from the knees down to the toes. Later, attention was turned to the right leg, heel, foot. This was surgically cleaned, prepped and draped in the standard fashion. She was placed in Trendelenburg position with the heel and leg elevated over a bump made from sheets and secured with tape. Preoperative photograph was taken. First, we excised the devitalized tissue along the plantar aspect of the heel and wound edges. Later, I used a #10 scalpel blade and tangentially excised all the necrotic tissue sharply from the periphery towards the center. The entire necrotic tissue was excised, including part of the underlying fascia and aponeurosis in the wound. This led to a portion of the posterior calcaneal tuberosity. This was palpated and appeared to be intact. We proceeded to obtain bone biopsy from this area using rongeurs. Hemostasis was achieved with pressure and elevation. We now thoroughly cleaned and irrigated and washed this area with antibiotic-containing saline solution. Three liters of normal saline mixed with 50,000 units of bacitracin, 600 mg of clindamycin, and 80 mg of gentamicin was used to clean this with a pulse lavage beauty operator apprentice. Towards completion, the wound looked clean, and there was healthy backbleeding from the surrounding tissues and depth. Hemostasis was achieved with electrocoagulation Bovie and elevation. Completion photograph was taken. The wound was dressed with Xeroform gauze reinforced with 4 x 4 gauze, AMD Kerlix, Webril, Coban and Mc bandages respectively. The procedure was well tolerated. She recovered from anesthesia uneventfully. She was taken to in stable, satisfactory condition. VD:yas Job ID: [id number] Doc ID: [id number] Robbie Ramirez MD
--- NOTE | 2018-05-30 18:19 | General Surgery Progress Note ---
Subjective Narrative: Note initiated : 05/30/18 at 6:17 pm Service Date, if different from initiated Date: [] Patient: Kenia Marion 67 y/o F admitted on 05/26/18 for leg pain, swelling , possible infection. Chief Complaint: []Patient seen on POST OP rounds. Resting comfortably in bed. Doing her physical therapy exercises. No complaints. Dressings CDI She thinks that she may be able to arrange for transportation for HBOT after discharge. Objective Temp Pulse Resp BP Pulse Ox 97.4 F 78 20 124/70 96 05/30/18 16:00 05/30/18 12:00 05/30/18 16:00 05/30/18 16:00 05/30/18 16:00 AVSS. No changes GP. Dressings RIght and left foot CDI. - Additional Data Intake & Output - Last 24 hours: Intake & Output 05/28/18 05/29/18 05/30/18 05/31/18 05:59 05:59 05:59 05:59 Intake Total 2350 / 2350 1360 / 1360 1500 / 1500 1440 / 1440 Output Total 1000 / 1000 2550 / 2550 1675 / 1675 1450 / 1450 Balance 1350 / 1350 -1190 / -1190 -175 / -175 -10 / -10 Weight 206 lb 207 lb 202 lb 8 oz 202 lb 8 oz - Labs 05/29/18 05:12 05/30/18 04:20 Diabetes panel 05/30/18 Range/Units 04:20 Sodium 139 (133-145) mmol/L Potassium 3.5 (3.3-5.1) mmol/L Chloride 102 (96-108) mmol/L Carbon Dioxide 26 (22-30) mmol/L BUN 18 (8-23) mg/dl Creatinine 1.7 H (0.6-1.1) mg/dl Glucose 148 H (70-105) mg/dL Calcium 8.0 L (8.6-10.4) mg/dl AST 9 (0-37) U/l ALT < 5 (0-40) U/l Alkaline Phosphatase 91 (39-117) U/L Total Protein 6.4 (5.9-8.4) gm/dL Albumin 2.1 L (3.2-5.2) gm/dL Triglycerides 228 H (<150) mg/dl Calcium panel 05/30/18 Range/Units 04:20 Calcium 8.0 L (8.6-10.4) mg/dl Phosphorus 2.8 (2.7-4.5) mg/dL Albumin 2.1 L (3.2-5.2) gm/dL Pituitary panel 05/30/18 Range/Units 04:20 Sodium 139 (133-145) mmol/L Potassium 3.5 (3.3-5.1) mmol/L Chloride 102 (96-108) mmol/L Carbon Dioxide 26 (22-30) mmol/L BUN 18 (8-23) mg/dl Creatinine 1.7 H (0.6-1.1) mg/dl Glucose 148 H (70-105) mg/dL Calcium 8.0 L (8.6-10.4) mg/dl Adrenal panel 05/30/18 Range/Units 04:20 Sodium 139 (133-145) mmol/L Potassium 3.5 (3.3-5.1) mmol/L Chloride 102 (96-108) mmol/L Carbon Dioxide 26 (22-30) mmol/L BUN 18 (8-23) mg/dl Creatinine 1.7 H (0.6-1.1) mg/dl Glucose 148 H (70-105) mg/dL Calcium 8.0 L (8.6-10.4) mg/dl Total Bilirubin 0.3 (0.0-1.0) mg/dL AST 9 (0-37) U/l ALT < 5 (0-40) U/l Alkaline Phosphatase 91 (39-117) U/L Total Protein 6.4 (5.9-8.4) gm/dL Albumin 2.1 L (3.2-5.2) gm/dL Assessment and Plan (1) Cellulitis Status: Suspected Assessment and plan: Assessment: No acute interval changes. Plan: Continue current treatment. We will review her MRI with the radiologist tomorrow and make recommendations about operating room debridement. Current Visit: No (2) Renal failure Status: Acute Current Visit: No (3) DM type 2 causing complication Status: Acute Current Visit: No (4) Dehydration Status: Acute Current Visit: No (5) HTN (hypertension) Status: Chronic Current Visit: No (6) Acute renal failure (ARF) Status: Acute Current Visit: No (7) Uncontrolled diabetes mellitus with foot ulcer Problem details: Started on IV antibiotics aftre ER debridement and now on SANTYL. Await MRI Right foot Status: Acute Current Visit: Yes - Narrative A/P Narrative: Assessment: Satisfactory post op progress. Patient has DFU Morin 3. Plan: Start HBOT from tomorrow. - Time Spent With Patient Total time spent is greater than 50% in coordination of care (as documented) at patient's floor/unit and/or counseling patient:
[2018-05-30] MEDS: SIMVASTATIN 40 MG TABLET PO SCH (20:43)
[2018-05-30] MEDS ORDERED: INSULIN GLARGINE, HUMAN 1 UNIT/0.01 ML SQ SCH (21:00)
[2018-05-31] MEDS: PIPERACILLIN SODIUM/TAZOBACTAM 2.25 GM in DEXTROSE 5% IN WATER 50 ML IV SCH ×5 (00:21→23:44)
[2018-05-31] MEDS: 0.9 % SODIUM CHLORIDE 10 ML SYRINGE IV SCH ×2 (05:42→12:01)
[2018-05-31 05:43] LABS: Basophils # (Auto) 0 K/mcL (0.0-0.3); Basophils % (Auto) 0.2 % (0.0-2.0); Eosinophils # (Auto) 0 K/mcL (0.0-0.7); Eosinophils % (Auto) 0 % (0.0-7.0); Granulocytes % (Auto) 82.8 % (38.0-78.0); Lymphocytes # (Auto) 1.1 K/mcL (1.5-4.8); Lymphocytes % (Auto) 10.7 % (15.5-49.0); Mean Cell Volume 80.3 fL (80.0-100.0); Mean Corpuscular HGB Conc 33.2 g/dL (31.0-36.0); Mean Corpuscular Hemoglobin 26.6 pg (26.0-34.0); Monocytes # (Auto) 0.7 K/mcL (0.1-0.9); Monocytes % (Auto) 6.3 % (1.0-12.0); Platelet Count 353 K/mcL (140-440); RBC 2.94 M/mcL (4.00-5.20); Red Cell Distribution Width 14.9 % (11.5-14.5)
[2018-05-31 06:08] LABS: Prealbumin 8.8 mg/dl (20-40)
[2018-05-31 06:16] LABS: ALT/SGPT < 5 U/l (0-40); Albumin 2.4 gm/dL (3.2-5.2); Albumin/Globulin Ratio 0.6 (1.0-2.3); Alkaline Phosphatase 79 U/L (39-117); Bilirubin,Direct < 0.2 mg/dL (0.0-0.3); Blood Urea Nitrogen 24 mg/dl (8-23); Gamma Glutamyl Transpeptidase 25 U/L (5-36)
[2018-05-31] MEDS: HYDROcodone/APAP 5/325MG TABLET PO PRN ×2 (06:57→20:38)
--- NOTE | 2018-05-31 07:31 | Internal Med Progress Note ---
Medical - PN: Subj Patient information: Note initiated : 05/31/18 at 7:26 am Service Date, if different from initiated Date: [] Patient: Kenia Marion 67 y/o F admitted on 05/26/18 for leg pain, swelling , possible infection. Chief Complaint: [] Interval history: Ms. Marion is a 67 year old F With diabetic ulcers on her b/l heels who presents at the urging of her children because her feet are becoming more painful. Patient states little bit more swelling but mostly pain. She did not notice any purulent drainage. denies subjective fevers and chills. In the ED she was evaluated and found to have purulent drainage of the right foot ED physician did probe to the bone. CT was done which could not rule out osteomyelitis. The ulcers have been worsening over the past few weeks. In the ER she was also found to have a fever mild leukocytosis significantly elevated ESR as well as a glucose. She was given IV fluids and started on IV antibiotics with blood cultures obtained and wound culture obtained. 05/27 Slept well. foot pain little better. Dressings placed and heel offloading boot was placed. No overnight events. 05/28 He needs to feel better. Good night sleep. No overnight issues. Wound care monitoring ulcer and following for need for debridement chemical versus manual 05/29 Sleeping okay. Dressings intact. Renal function little worse likely mild hypovolemia holding diuretics and give gentle fluids today. 05/30 No overnight events, no new complaints. Will be going to the OR shortly for debridement. 05/31 Had debridement in the OR yesterday. No overnight events and doing well. Blood sugars elevated yesterday afternoon and evening. Review of Systems: denies headache/fever/chills/nausea/vomiting/chest or abdominal pain/cough/ dyspnea/diarrhea. Otherwise see above. - Constitutional Vitals: Vital Signs Temp Pulse Resp BP Pulse Ox 98.6 F 79 20 128/70 98 05/31/18 06:58 05/31/18 06:58 05/31/18 07:05 05/31/18 07:05 05/31/18 06:58 Period Temp Pulse Resp BP Sys/Mayo Pulse Ox Last 24 Hr 96.1 F-98.6 F 72-89 16-20 105-131/56-76 92-99 Intake and Output 05/30/18 05/31/18 05/31/18 21:59 05:59 13:59 Intake Total 1390 / 1390 1400 / 1400 50 / 50 Output Total 1450 / 1450 200 / 200 300 / 300 Balance -60 / -60 1200 / 1200 -250 / -250 Weight 91.852 kg 91.852 kg Intake & Output: Intake & Output 05/30/18 05/31/18 05/31/18 21:59 05:59 13:59 Intake Total 1390 / 1390 1400 / 1400 50 / 50 Output Total 1450 / 1450 200 / 200 300 / 300 Balance -60 / -60 1200 / 1200 -250 / -250 Weight 91.852 kg 91.852 kg Intake: IV 50 / 50 800 / 800 50 / 50 Zosyn 2.25 gm In Dextrose 5% in 50 / 50 50 / 50 50 / 50 Water 50 ml @ 100 mls/hr IV Q6H [facility] Rx#:[id number] Oral 1340 / 1340 600 / 600 Output: Void Amount 1450 / 1450 200 / 200 300 / 300 # of times incontinent of urine 0 / 0 Other: Meal Dinner Percent of Meal Consumed 100% Feeding Ability Independent Urine Appearance Clear Clear Clear Urine Color Bright Yellow Bright Yellow Dark Yellow Urine Odor Normal Normal # Voids 4 1 Exam: General: Alert, Awake, No acute Distress, obese Eyes/N/T: EOMI, Head/Neck: neck supple, CV: RRR, 2/6 SM, normal s1/s2 Pulm: no wheezing/rhonchi Abd: soft, nontender, +BS x4 Ext: b/l LE edema mild b/l LE, b/l DM ulcers along heels with dressing in place Neuro: Alert, no focal deficits, moves all extremities Skin: warm/dry Medical - PN: Obj Da - Labs CBC & Chem 7: 05/31/18 04:40 05/31/18 04:40 Labs: Abnormal Lab Results 05/31/18 05/31/18 05/31/18 04:40 04:40 04:40 RBC 2.94 L Hgb 7.8 L Hct 23.6 L RDW 14.9 H Gran % 82.8 H Lymph % (Auto) 10.7 L Gran # 8.6 H Lymph # (Auto) 1.1 L BUN 24 H Creatinine 1.5 H Glucose 252 H Calcium 8.0 L Phosphorus 2.6 L Magnesium Albumin 2.4 L Globulin 4.0 H Albumin/Globulin Ratio 0.6 L Prealbumin 8.8 L Triglycerides 212 H Urine Protein Urine Glucose (UA) Urine Occult Blood Urine RBC Hyaline Casts 05/30/18 05/30/18 05/29/18 04:20 04:20 11:35 RBC Hgb Hct RDW Gran % Lymph % (Auto) Gran # Lymph # (Auto) BUN Creatinine 1.7 H Glucose 148 H Calcium 8.0 L Phosphorus Magnesium 1.4 L Albumin 2.1 L Globulin 4.3 H Albumin/Globulin Ratio 0.5 L Prealbumin 6.9 L Triglycerides 228 H Urine Protein 100 A Urine Glucose (UA) 50 A Urine Occult Blood 0.2 A Urine RBC 25 H Hyaline Casts 5 H 05/29/18 05/29/18 05:12 05:12 RBC 2.88 L Hgb 7.7 L Hct 23.2 L RDW 15.2 H Gran % Lymph % (Auto) Gran # Lymph # (Auto) BUN Creatinine 1.7 H Glucose 151 H Calcium 8.0 L Phosphorus 2.5 L Magnesium 1.5 L Albumin 2.1 L Globulin 4.2 H Albumin/Globulin Ratio 0.5 L Prealbumin Triglycerides 241 H Urine Protein Urine Glucose (UA) Urine Occult Blood Urine RBC Hyaline Casts Meds: Medications Acetaminophen (Tylenol) 650 mg PO Q6HP PRN PRN Reason: PAIN/FEVER > 101 Hydrocodone Bitart/Acetaminophen ([place]hton 5/325mg) 1 tab PO Q4HP PRN PRN Reason: PAIN LEVEL 3-6 Last Admin: 05/31/18 06:57 Dose: 1 tab Albuterol/Ipratropium (Duoneb) 3 ml NEB Q4HRT PRN PRN Reason: Dyspnea Aspirin (Aspirin) 81 mg PO DAILY [facility] Dextrose (Dextrose 50%) 50 ml IV UD PRN PRN Reason: Hypoglycemia Diagnostic Test (Pha) (Accu-Chek) 1 each FS ACHS [facility] Last Admin: 05/31/18 06:57 Dose: 1 each Gabapentin (Neurontin) 600 mg PO BID [facility] Last Admin: 05/30/18 20:41 Dose: 600 mg Heparin Sodium (Porcine) (Heparin) 5,000 unit SQ Q12 [facility] Last Admin: 11/28/18 20:45 Dose: 5,000 unit Piperacillin Sod/Tazobactam (Sod 2.25 gm/ Dextrose) 50 mls @ 100 mls/hr IV Q6H [facility] Last Infusion: 05/31/18 06:29 Dose: Infused Insulin Glargine (Lantus) 24 unit SQ [facility] Last Admin: 05/30/18 22:01 Dose: 24 unit Insulin Human Lispro (Humalog) 0 unit SQ [facility]; Protocol Last Admin: 05/30/18 22:01 Dose: 18 unit Metoprolol Tartrate (Lopressor) 25 mg PO BID [facility] Last Admin: 05/30/18 20:57 Dose: 25 mg Ondansetron HCl (Zofran) 4 mg IV Q4HP PRN PRN Reason: Nausea And Vomiting Simvastatin (Zocor) 40 mg PO [facility] Last Admin: 05/30/18 20:43 Dose: 40 mg Sodium Chloride (Saline Flush) 10 ml IV Q8 [facility] Last Admin: 05/31/18 05:42 Dose: 10 ml Medical - PN: A/P - Time Spent With Patient Total time spent is greater than 50% in coordination of care (as documented) at patient's floor/unit and/or counseling patient: - Narrative A/P Narrative: A: *Cellulitis, right heel with diabetic ulcer over the left heel as well: s/p surgical I&D (05/30) -MRI no Osteomyelitis only cellulitis throughout foot/ankle, no abscess -wound Cx no specific pathogens, -MRSA Screen neg, BC neg *Sepsis: 2/2 above. Resolved -leukocytosis resolved, now afebrile, BC neg x24 *Diabetes, uncontrolled: A1c 8.4 -improved with close monitoring *FATIMAH on CKD III (): -1.5<1.7<1.7 *Anemia, chronic: *HTN: *chronic lymphedema *Hypokalemia/mag: improved *malnutrition: prealbumin 6.9 P: -Con Zosyn, -Wound care following; Dr. Gonzalez; chemical vs manual debridement -Continue Levemir (increased) and SSI -Monitor electrolytes -hold diuretics given renal fxn -dietary consult -ppx: heparin Medical - PN: Qual - Stroke Symptom Onset Unknown: No - VTE Deep Vein Thrombosis/Pulmonary Embolism Present on Admission: No
[2018-05-31] MEDS ORDERED: INSULIN GLARGINE, HUMAN 1 UNIT/0.01 ML SQ ONE (07:32)
[2018-05-31] MEDS: GABAPENTIN 300 MG CAPSULE PO SCH ×2 (08:07→20:37)
[2018-05-31] MEDS: METOPROLOL TARTRATE 25 MG TABLET PO SCH ×2 (08:07→20:37)
[2018-05-31] MEDS: HEPARIN 5,000 UNIT/ML VIAL SQ SCH ×2 (08:07→20:40)
[2018-05-31] MEDS: ASPIRIN 81 MG TAB.CHEW PO SCH (08:07)
[2018-05-31] MEDS: INSULIN LISPRO 1 UNIT/0.01 ML UNIT SQ SCH ×4 (08:08→21:25)
[2018-05-31] MEDS: OXANDROLONE 2.5 MG TABLET PO SCH ×2 (09:31→22:30)
--- NOTE | 2018-05-31 15:20 | Surgical Pathology Report ---
HISTOLOGY SPECIMEN MICROSCOPIC DIAGNOSIS SPECIMEN A - SKIN, RIGHT HEEL, BIOPSY: -- ULCERATED SKIN WITH IMPETIGINIZED SCALE CRUST WITH PERIVASCULAR MIXED ACUTE AND CHRONIC INFLAMMATION AND THROMBOTIC BLOOD VESSELS. -- NO DYSPLASIA OR MALIGNANCY IDENTIFIED. SPECIMEN B - BONE, RIGHT CALCANEUM, BIOPSY: -- CHRONIC OSTEOMYELITIS. SPECIMEN C - SOFT TISSUE, RIGHT HEEL, EXCISION: -- FIBROADIPOSE TISSUE WITH MIXED ACUTE AND CHRONIC INFLAMMATION. -- NO MALIGNANCY IDENTIFIED. (EBD:sln) CLINICAL HISTORY Sepsis necrotizing skin and soft tissue infection right heel; non-stageable diabetic foot ulcer; right heel posterior plantar aspect. GROSS DESCRIPTION Specimen A: Received in formalin labeled A and designated necrotic tissue right heel, is a 4.2 x 3.5 x 0.4 cm portion of lei-brown skin. The margin is inked black. Serially sectioned, with associate financial representative sections submitted in one cassette. Also in the container is a 1.5 cm in length by up to 0.3 cm diameter green plastic tubal fragment. Specimen B: Received in formalin labeled B and designated bone right calcaneum, are two bony fragments of pink-bernard tissue 0.3 x 0.3 x 0.2 and 0.5 x 0.3 x 0.3 cm. Totally submitted, following decalcification. Specimen C: Received in formalin labeled C and designated as soft tissue right heel, are two fragments of pink-bernard tissue 0.8 x 0.6 x 0.2 and 0.9 x 0.6 x 0.3 cm. Totally submitted - one cassette. (KGW:sln) Electronically Signed by: Rosey Patrick M.D.
--- NOTE | 2018-05-31 15:51 | General Surgery Progress Note ---
Subjective Narrative: Note initiated : 05/31/18 at 3:48 pm Service Date, if different from initiated Date: [] Patient: Kenia Marion 67 y/o F admitted on 05/26/18 for leg pain, swelling , possible infection. Chief Complaint: [] I saw this patient on rounds this morning and again when she came to the wound center for HBO treatment. She had an uneventful night yesterday and has been asymptomatic today when she came for HBO treatment. Patient is severe hypoproteinemia with a prealbumin of 6. Her bone biopsy is consistent with chronic osteomyelitis. Skin and soft tissue biopsies confirm acute on chronic inflammation without any evidence of malignancy. Objective Temp Pulse Resp BP Pulse Ox 97.3 F 85 16 132/81 97 05/31/18 12:00 05/31/18 12:00 05/31/18 12:00 05/31/18 12:00 05/31/18 12:00 AVSS. No changes in her physical examination. Local examination the dressings over her right and left heel and foot are intact. Toes are warm dry and mobile bilaterally. I discussed the results of investigations of hypoproteinemia with this patient and emphasized the need for nutritional repletion. Additionally, have explained to her about the role of hyperbaric oxygen therapy to expedite her wound care, wound healing and subsequent rehabilitation. She verbalizes understanding and wishes to proceed with this plan of care. Physical therapy and occupational therapy personnel are also seeing this patient. - Additional Data Intake & Output - Last 24 hours: Intake & Output 05/29/18 05/30/18 05/31/18 06/01/18 05:59 05:59 05:59 05:59 Intake Total 1360 / 1360 1500 / 1500 2890 / 2890 50 / 50 Output Total 2550 / 2550 1675 / 1675 2350 / 2350 775 / 775 Balance -1190 / -1190 -175 / -175 540 / 540 -725 / -725 Weight 207 lb 202 lb 8 oz 202 lb 8 oz - Labs 05/31/18 04:40 05/31/18 04:40 Diabetes panel 05/31/18 Range/Units 04:40 Sodium 138 (133-145) mmol/L Potassium 4.1 (3.3-5.1) mmol/L Chloride 101 (96-108) mmol/L Carbon Dioxide 26 (22-30) mmol/L BUN 24 H (8-23) mg/dl Creatinine 1.5 H (0.6-1.1) mg/dl Glucose 252 H (70-105) mg/dL Calcium 8.0 L (8.6-10.4) mg/dl AST 7 (0-37) U/l ALT < 5 (0-40) U/l Alkaline Phosphatase 79 (39-117) U/L Total Protein 6.4 (5.9-8.4) gm/dL Albumin 2.4 L (3.2-5.2) gm/dL Triglycerides 212 H (<150) mg/dl Thyroid panel 05/31/18 Range/Units 04:40 TSH 1.32 (0.27-5.01) uIU/ml Calcium panel 05/31/18 Range/Units 04:40 Calcium 8.0 L (8.6-10.4) mg/dl Phosphorus 2.6 L (2.7-4.5) mg/dL Albumin 2.4 L (3.2-5.2) gm/dL Pituitary panel 05/31/18 05/31/18 Range/Units 04:40 04:40 Sodium 138 (133-145) mmol/L Potassium 4.1 (3.3-5.1) mmol/L Chloride 101 (96-108) mmol/L Carbon Dioxide 26 (22-30) mmol/L BUN 24 H (8-23) mg/dl Creatinine 1.5 H (0.6-1.1) mg/dl Glucose 252 H (70-105) mg/dL Calcium 8.0 L (8.6-10.4) mg/dl TSH 1.32 (0.27-5.01) uIU/ml Adrenal panel 05/31/18 Range/Units 04:40 Sodium 138 (133-145) mmol/L Potassium 4.1 (3.3-5.1) mmol/L Chloride 101 (96-108) mmol/L Carbon Dioxide 26 (22-30) mmol/L BUN 24 H (8-23) mg/dl Creatinine 1.5 H (0.6-1.1) mg/dl Glucose 252 H (70-105) mg/dL Calcium 8.0 L (8.6-10.4) mg/dl Total Bilirubin 0.2 (0.0-1.0) mg/dL AST 7 (0-37) U/l ALT < 5 (0-40) U/l Alkaline Phosphatase 79 (39-117) U/L Total Protein 6.4 (5.9-8.4) gm/dL Albumin 2.4 L (3.2-5.2) gm/dL Assessment and Plan (1) Cellulitis Status: Suspected Assessment and plan: Assessment: No acute interval changes. Plan: Continue current treatment. We will review her MRI with the radiologist tomorrow and make recommendations about operating room debridement. Current Visit: No (2) Renal failure Status: Acute Current Visit: No (3) DM type 2 causing complication Status: Acute Current Visit: No (4) Dehydration Status: Acute Current Visit: No (5) HTN (hypertension) Status: Chronic Current Visit: No (6) Acute renal failure (ARF) Status: Acute Current Visit: No (7) Uncontrolled diabetes mellitus with foot ulcer Problem details: Started on IV antibiotics aftre ER debridement and now on SANTYL. Await MRI Right foot Status: Acute Current Visit: Yes - Time Spent With Patient Total time spent is greater than 50% in coordination of care (as documented) at patient's floor/unit and/or counseling patient: Assessment: Satisfactory postoperative progress. Plan: Start patient on Oxandrin 5 mg twice a day. Commence hyperbaric oxygen therapy for necrotizing skin and soft tissue infection and diabetic Foot ulcer Morin 3. 15 - 24 minutes
[2018-05-31] MEDS: SIMVASTATIN 40 MG TABLET PO SCH (20:38)
[2018-05-31] MEDS: INSULIN GLARGINE, HUMAN 1 UNIT/0.01 ML SQ SCH (21:26)
[2018-06-01] MEDS: 0.9 % SODIUM CHLORIDE 10 ML SYRINGE IV SCH ×4 (00:15→22:14)
[2018-06-01] MEDS: PIPERACILLIN SODIUM/TAZOBACTAM 2.25 GM in DEXTROSE 5% IN WATER 50 ML IV SCH ×4 (06:35→23:33)
[2018-06-01 06:54] LABS: Blood Urea Nitrogen 26 mg/dl (8-23)
[2018-06-01] MEDS: INSULIN LISPRO 1 UNIT/0.01 ML UNIT SQ SCH ×4 (07:40→21:44)
[2018-06-01] MEDS: METOPROLOL TARTRATE 25 MG TABLET PO SCH ×2 (07:41→21:44)
[2018-06-01] MEDS: GABAPENTIN 300 MG CAPSULE PO SCH ×2 (07:41→21:43)
[2018-06-01] MEDS: OXANDROLONE 2.5 MG TABLET PO SCH ×2 (07:41→21:55)
[2018-06-01] MEDS: ASPIRIN 81 MG TAB.CHEW PO SCH (07:41)
[2018-06-01] MEDS: HEPARIN 5,000 UNIT/ML VIAL SQ SCH ×2 (07:41→21:43)
[2018-06-01] MEDS: HYDROcodone/APAP 5/325MG TABLET PO PRN ×2 (08:10→19:14)
--- NOTE | 2018-06-01 20:57 | General Surgery Progress Note ---
Subjective Narrative: Note initiated : 06/01/18 at 8:54 pm Service Date, if different from initiated Date: [] Patient: Kenia Marion 67 y/o F admitted on 05/26/18 for leg pain, swelling , possible infection. Chief Complaint: [] Patient seen for HBO treatment today. Initially, she tolerated the treatment well but during decompression she was experiencing anxiety. Going forwards I would treat her with Ativan 1 mg before treatment commencement. Objective Temp Pulse Resp BP Pulse Ox 97.9 F 78 18 143/71 96 06/01/18 20:00 06/01/18 20:00 06/01/18 20:00 06/01/18 20:00 06/01/18 20:00 AVSS. No changes in general physical examination. Will review the right foot plantar wound in the morning and later make discharge arrangements. She will continue HBO treatments as outpatient. - Additional Data Intake & Output - Last 24 hours: Intake & Output 05/30/18 05/31/18 06/01/18 06/02/18 05:59 05:59 05:59 05:59 Intake Total 1500 / 1500 2890 / 2890 820 / 820 1120 / 1120 Output Total 1675 / 1675 2350 / 2350 2325 / 2325 1000 / 1000 Balance -175 / -175 540 / 540 -1505 / -1505 120 / 120 Weight 202 lb 8 oz 202 lb 8 oz 205 lb 205 lb - Labs 05/31/18 04:40 06/01/18 04:30 Diabetes panel 06/01/18 Range/Units 04:30 Sodium 140 (133-145) mmol/L Potassium 3.7 (3.3-5.1) mmol/L Chloride 103 (96-108) mmol/L Carbon Dioxide 26 (22-30) mmol/L BUN 26 H (8-23) mg/dl Creatinine 1.4 H (0.6-1.1) mg/dl Glucose 158 H (70-105) mg/dL Calcium 8.3 L (8.6-10.4) mg/dl Calcium panel 06/01/18 Range/Units 04:30 Calcium 8.3 L (8.6-10.4) mg/dl Pituitary panel 06/01/18 Range/Units 04:30 Sodium 140 (133-145) mmol/L Potassium 3.7 (3.3-5.1) mmol/L Chloride 103 (96-108) mmol/L Carbon Dioxide 26 (22-30) mmol/L BUN 26 H (8-23) mg/dl Creatinine 1.4 H (0.6-1.1) mg/dl Glucose 158 H (70-105) mg/dL Calcium 8.3 L (8.6-10.4) mg/dl Adrenal panel 06/01/18 Range/Units 04:30 Sodium 140 (133-145) mmol/L Potassium 3.7 (3.3-5.1) mmol/L Chloride 103 (96-108) mmol/L Carbon Dioxide 26 (22-30) mmol/L BUN 26 H (8-23) mg/dl Creatinine 1.4 H (0.6-1.1) mg/dl Glucose 158 H (70-105) mg/dL Calcium 8.3 L (8.6-10.4) mg/dl Assessment and Plan (1) Cellulitis Status: Suspected Assessment and plan: Assessment: No acute interval changes. Plan: Continue current treatment. We will review her MRI with the radiologist tomorrow and make recommendations about operating room debridement. Current Visit: No (2) Renal failure Status: Acute Current Visit: No (3) DM type 2 causing complication Status: Acute Current Visit: No (4) Dehydration Status: Acute Current Visit: No (5) HTN (hypertension) Status: Chronic Current Visit: No (6) Acute renal failure (ARF) Status: Acute Current Visit: No (7) Uncontrolled diabetes mellitus with foot ulcer Problem details: Started on IV antibiotics aftre ER debridement and now on SANTYL. Await MRI Right foot Status: Acute Current Visit: Yes - Time Spent With Patient Total time spent is greater than 50% in coordination of care (as documented) at patient's floor/unit and/or counseling patient: Assessment: Ongoing as noted parents for diabetic foot ulcer Morin 3. Plan: Continue presented plan. Reassess and examine the wounds tomorrow morning. Later commence discharge planning less than 15 minutes
[2018-06-01] MEDS: INSULIN GLARGINE, HUMAN 1 UNIT/0.01 ML SQ SCH (21:44)
[2018-06-01] MEDS: SIMVASTATIN 40 MG TABLET PO SCH (21:44)
--- NOTE | 2018-06-01 23:00 | Internal Med Progress Note ---
Medical - PN: Subj Patient information: Note initiated : 06/01/18 at 10:58 pm Service Date, if different from initiated Date: [] Patient: Kenia Marion 67 y/o F admitted on 05/26/18 for leg pain, swelling , possible infection. Chief Complaint: f/u osteo Interval history: 05/26 Ms. Marion is a 67 year old F with diabetic ulcers on her b/l heels who presents at the urging of her children because her feet are becoming more painful. Patient states little bit more swelling but mostly pain. She did not notice any purulent drainage. denies subjective fevers and chills. In the ED she was evaluated and found to have purulent drainage of the right foot ED physician did probe to the bone. CT was done which could not rule out osteomyelitis. The ulcers have been worsening over the past few weeks. In the ER she was also found to have a fever mild leukocytosis significantly elevated ESR as well as a glucose. She was given IV fluids and started on IV antibiotics with blood cultures obtained and wound culture obtained. 05/27 Slept well. foot pain little better. Dressings placed and heel offloading boot was placed. No overnight events. 05/28 He needs to feel better. Good night sleep. No overnight issues. Wound care monitoring ulcer and following for need for debridement chemical versus manual 05/29 Sleeping okay. Dressings intact. Renal function little worse likely mild hypovolemia holding diuretics and give gentle fluids today. 05/30 No overnight events, no new complaints. Will be going to the OR shortly for debridement. 05/31 Had debridement in the OR yesterday. No overnight events and doing well. Blood sugars elevated yesterday afternoon and evening. 05/31 Had HBO therapy this morning, was quite anxious. Otherwise no complaints. Discussed with Dr. Ramirez. He is recommending 6 weeks of treatment with Zyvox for osteomyelitis. Also recommending oxandrolone for appetite and pre- HBO lorazepam. - Constitutional Vitals: Vital Signs Temp Pulse Resp BP Pulse Ox 97.9 F 78 18 143/71 96 06/01/18 20:00 06/01/18 20:00 06/01/18 20:00 06/01/18 20:00 06/01/18 20:00 Period Temp Pulse Resp BP Sys/Mayo Pulse Ox Last 24 Hr 97.2 F-98.2 F 68-84 14-18 124-149/62-85 92-96 Intake and Output 06/01/18 06/01/18 06/02/18 13:59 21:59 05:59 Intake Total 580 / 580 540 / 540 Output Total 300 / 300 700 / 700 Balance 280 / 280 -160 / -160 Weight 205 lb 203 lb Patient Weight 06/02/18 05:59 Weight 203 lb Intake & Output: Intake & Output 06/01/18 06/01/18 06/02/18 13:59 21:59 05:59 Intake Total 580 / 580 540 / 540 Output Total 300 / 300 700 / 700 Balance 280 / 280 -160 / -160 Weight 205 lb 203 lb Intake: IV 100 / 100 Zosyn 2.25 gm In Dextrose 5% in 100 / 100 Water 50 ml @ 100 mls/hr IV Q6H [facility] Rx#:[id number] Oral 480 / 480 540 / 540 Output: Void Amount 300 / 300 700 / 700 Other: Meal Lunch Dinner Percent of Meal Consumed 100% 100% Feeding Ability Independent Independent Urine Color Bright Yellow # Voids 1 General appearance: no acute distress - Respiratory Respiratory exam: Present: CTAB - Cardiovascular Cardiovascular exam: Present: normal rate and rhythm - GI/Abdominal GI/Abdominal exam: Present: soft. Absent: tenderness - Extremities Exam Additional comments: Heel ulcers dressed - Neurological Exam Neurological exam: Present: alert, normal gait, oriented X3 Medical - PN: Obj Da - Labs CBC & Chem 7: 05/31/18 04:40 06/01/18 04:30 Labs: Abnormal Lab Results 06/01/18 05/31/18 05/31/18 04:30 04:40 04:40 RBC Hgb Hct RDW Gran % Lymph % (Auto) Gran # Lymph # (Auto) BUN 26 H 24 H Creatinine 1.4 H 1.5 H Glucose 158 H 252 H Calcium 8.3 L 8.0 L Phosphorus 2.6 L Magnesium Albumin 2.4 L Globulin 4.0 H Albumin/Globulin Ratio 0.6 L Prealbumin 8.8 L Triglycerides 212 H 05/31/18 05/30/18 05/30/18 04:40 04:20 04:20 RBC 2.94 L Hgb 7.8 L Hct 23.6 L RDW 14.9 H Gran % 82.8 H Lymph % (Auto) 10.7 L Gran # 8.6 H Lymph # (Auto) 1.1 L BUN Creatinine 1.7 H Glucose 148 H Calcium 8.0 L Phosphorus Magnesium 1.4 L Albumin 2.1 L Globulin 4.3 H Albumin/Globulin Ratio 0.5 L Prealbumin 6.9 L Triglycerides 228 H Meds: Medications Acetaminophen (Tylenol) 650 mg PO Q6HP PRN PRN Reason: PAIN/FEVER > 101 Hydrocodone Bitart/Acetaminophen (Lima 5/325mg) 1 tab PO Q4HP PRN PRN Reason: PAIN LEVEL 3-6 Last Admin: 06/01/18 19:14 Dose: 1 tab Albuterol/Ipratropium (Duoneb) 3 ml NEB Q4HRT PRN PRN Reason: Dyspnea Aspirin (Aspirin) 81 mg PO DAILY [facility] Last Admin: 06/01/18 07:41 Dose: 81 mg Dextrose (Dextrose 50%) 50 ml IV UD PRN PRN Reason: Hypoglycemia Diagnostic Test (Pha) (Accu-Chek) [address] [facility] Last Admin: 06/01/18 21:43 Dose: 1 each Gabapentin (Neurontin) 600 mg PO BID [facility] Last Admin: 06/01/18 21:43 Dose: 600 mg Heparin Sodium (Porcine) (Heparin) 5,000 unit SQ Q12 [facility] Last Admin: 06/01/18 21:43 Dose: 5,000 unit Piperacillin Sod/Tazobactam (Sod 2.25 gm/ Dextrose) 50 mls @ 100 mls/hr IV Q6H [facility] Last Admin: 06/01/18 17:29 Dose: 100 mls/hr Insulin Glargine (Lantus) 35 unit SQ [facility] Last Admin: 06/01/18 21:44 Dose: 35 unit Insulin Human Lispro (Humalog) 0 unit SQ [facility]; Protocol Last Admin: 06/01/18 21:44 Dose: 4 unit Metoprolol Tartrate (Lopressor) 25 mg PO BID [facility] Last Admin: 06/01/18 21:44 Dose: 25 mg Ondansetron HCl (Zofran) 4 mg IV Q4HP PRN PRN Reason: Nausea And Vomiting Oxandrolone (Oxandrin) 5 mg PO BID [facility] Last Admin: 06/01/18 21:55 Dose: 5 mg Simvastatin (Zocor) 40 mg PO HS [facility] Last Admin: 06/01/18 21:44 Dose: 40 mg Sodium Chloride (Saline Flush) 10 ml IV Q8 [facility] Last Admin: 06/01/18 22:14 Dose: 10 ml Medical - PN: A/P - Time Spent With Patient Total time spent is greater than 50% in coordination of care (as documented) at patient's floor/unit and/or counseling patient: 25 - 35 minutes - Narrative A/P Narrative: Cellulitis, right heel with diabetic ulcer over the left heel as well: s/p surgical I&D (05/30). Pathology from OR with osteomyelitis, though MRI was negative. Plan: 6 weeks of Zyvox Sepsis at presentation secondary to above wounds. Resolved. Type 2 diabetes mellitus, hemoglobin A1c 8.4. On Levemir and sliding scale insulin. Acute kidney injury on CK D stage III. Creatinine down to 1.4 today, resolving. Continue to monitor. Anemia, chronic, stable. Hypertension. Chronic lower extremity edema, significantly improved this hospitalization. Malnutrition with prealbumin 6.9. On oxandrolone. Will continue as an outpatient. Anxiety with hyperbaric oxygen. Will plan prescription for lorazepam pre- session. Medical - PN: Qual - Stroke Symptom Onset Unknown: No - VTE Deep Vein Thrombosis/Pulmonary Embolism Present on Admission: No
[2018-06-02] MEDS: 0.9 % SODIUM CHLORIDE 10 ML SYRINGE IV SCH (04:58)
[2018-06-02] MEDS: HYDROcodone/APAP 5/325MG TABLET PO PRN (04:58)
[2018-06-02] MEDS: PIPERACILLIN SODIUM/TAZOBACTAM 2.25 GM in DEXTROSE 5% IN WATER 50 ML IV SCH ×2 (04:59→12:49)
[2018-06-02 07:33] LABS: Blood Urea Nitrogen 25 mg/dl (8-23)
[2018-06-02] MEDS: INSULIN LISPRO 1 UNIT/0.01 ML UNIT SQ SCH ×2 (08:18→12:21)
[2018-06-02] MEDS: ASPIRIN 81 MG TAB.CHEW PO SCH (08:55)
[2018-06-02] MEDS: GABAPENTIN 300 MG CAPSULE PO SCH (08:55)
[2018-06-02] MEDS: HEPARIN 5,000 UNIT/ML VIAL SQ SCH (08:56)
[2018-06-02] MEDS: OXANDROLONE 2.5 MG TABLET PO SCH (08:56)
[2018-06-02] MEDS: METOPROLOL TARTRATE 25 MG TABLET PO SCH (08:56)
--- NOTE | 2018-06-02 10:48 | General Surgery Progress Note ---
Subjective Patient reports: no new complaints Narrative: Note initiated : 06/02/18 at 10:44 am Service Date, if different from initiated Date: [] Patient: Kenia Marion 67 y/o F admitted on 05/26/18 for leg pain, swelling , possible infection. Chief Complaint: [] Uneventful night. No specific complaints. Wants to go home today and come HBO treatment on Monday06/04/2018 Objective Temp Pulse Resp BP Pulse Ox 97.8 F 84 20 110/59 93 06/02/18 07:53 06/02/18 04:00 06/02/18 07:53 06/02/18 07:53 06/02/18 07:53 AVSS. No changes DARWIN. L/e Dressings taken down. Right plantar heel wound is clean and dry with granulating bed. Left plantar heel has darkened skin. Labs reviewed. WBC N. Hct 23 Prealbumin 6 Right heel biopsy Chronic osteomyelitis. - Additional Data Intake & Output - Last 24 hours: Intake & Output 05/31/18 06/01/18 06/02/18 06/03/18 05:59 05:59 05:59 05:59 Intake Total 2890 / 2890 820 / 820 1670 / 1670 360 / 360 Output Total 2350 / 2350 2325 / 2325 1999 / 1999 Balance 540 / 540 -1505 / -1505 -330 / -330 360 / 360 Weight 202 lb 8 oz 205 lb 203 lb - Labs 05/31/18 04:40 06/02/18 05:15 Diabetes panel 06/02/18 Range/Units 05:15 Sodium 138 (133-145) mmol/L Potassium 4.5 (3.3-5.1) mmol/L Chloride 102 (96-108) mmol/L Carbon Dioxide 23 (22-30) mmol/L BUN 25 H (8-23) mg/dl Creatinine 1.4 H (0.6-1.1) mg/dl Glucose 151 H (70-105) mg/dL Calcium 8.5 L (8.6-10.4) mg/dl Calcium panel 06/02/18 Range/Units 05:15 Calcium 8.5 L (8.6-10.4) mg/dl Pituitary panel 06/02/18 Range/Units 05:15 Sodium 138 (133-145) mmol/L Potassium 4.5 (3.3-5.1) mmol/L Chloride 102 (96-108) mmol/L Carbon Dioxide 23 (22-30) mmol/L BUN 25 H (8-23) mg/dl Creatinine 1.4 H (0.6-1.1) mg/dl Glucose 151 H (70-105) mg/dL Calcium 8.5 L (8.6-10.4) mg/dl Adrenal panel 06/02/18 Range/Units 05:15 Sodium 138 (133-145) mmol/L Potassium 4.5 (3.3-5.1) mmol/L Chloride 102 (96-108) mmol/L Carbon Dioxide 23 (22-30) mmol/L BUN 25 H (8-23) mg/dl Creatinine 1.4 H (0.6-1.1) mg/dl Glucose 151 H (70-105) mg/dL Calcium 8.5 L (8.6-10.4) mg/dl Assessment and Plan (1) Cellulitis Status: Suspected Assessment and plan: Assessment: No acute interval changes. Plan: Continue current treatment. We will review her MRI with the radiologist tomorrow and make recommendations about operating room debridement. Current Visit: No (2) Renal failure Status: Acute Current Visit: No (3) DM type 2 causing complication Status: Acute Current Visit: No (4) Dehydration Status: Acute Current Visit: No (5) HTN (hypertension) Status: Chronic Current Visit: No (6) Acute renal failure (ARF) Status: Acute Current Visit: No (7) Uncontrolled diabetes mellitus with foot ulcer Problem details: Started on IV antibiotics aftre ER debridement and now on SANTYL. Await MRI Right foot Status: Acute Current Visit: Yes - Narrative A/P Narrative: Assessment: Cellulitis resolved. Satisfactory progress s/p debridement of right plantar heel wound. Hypoproteinemia and Anemia. DM2 Osteomyelitis Right plantar heel calcaneum. c/o Anxiety yesterday during decompression after HBOT. Plan: OK to discharge home. Keep dressing clean and dry. HBO treatment on Monday06/04/2018 at 08:00 AM. Patient and family to arrange for transport. Please discharge home on following medications. OXANDRIN 5 mg PO BID for 3 weeks. Ferrous sulfate 325 mg PO daily for 4 weeks. ZYVOX ( LINEZOLID ) 600 mg PO BID for 4 weeks ATIVAN 1 mg PO 1 hour before HBOT for ten treatments. # 10 tabs. NO refill QUINTON SANTANA from [facility] to call wound care center on Monday06/04/2018 for wound care instructions. - Time Spent With Patient Total time spent is greater than 50% in coordination of care (as documented) at patient's floor/unit and/or counseling patient: 15 - 24 minutes
--- NOTE | 2018-06-02 12:08 | Discharge Summary ---
Medical - DS: Prov Patient information: Note initiated : 06/02/18 at 12:05 pm Service Date, if different from initiated Date: [] Patient: Kenia Marion 67 y/o F admitted on 05/26/18 for leg pain, swelling , possible infection. Date of admission: 05/26/18 18:23 Discharge date: 06/02/18 Primary care physician: Vaishali Ambriz Admitting clinician: Jonatan Limon Consults: 05/26/18 16:33 Consult to Physician [CONS] Stat Comment: Consulting Provider: Jonatan Limon Reason For Exam: Physician to Consult 05/26/18 18:26 Consult to Physician [CONS] Routine Comment: Consulting Provider: Robbie Ramirez Reason For Exam: Physician to Consult Discharging clinician: January Sanchez Medical - DS: Meds - Discharge Medications Prescriptions: Ferrous Sulfate [Iron] 325 mg PO DAILY #30 tab HYDROcodone/APAP 5/325MG [Milton 5-325Mg] 1 tab PO Q4HP PRN #20 tab PRN Reason: Pain Level 3-6 Linezolid 600 mg PO BID #56 tab LORazepam [Ativan] 1 mg PO DAILYP PRN #10 tab PRN Reason: Anxiety Oxandrolone [Oxandrin] 5 mg PO BID #60 tab Active and Home Medications: Home Medications Accu-Chek 1 strip MISC ACHS 05/05/16 [History Confirmed 05/26/18 Last Taken 07/18 21:00] Aspirin [Lo-Dose Aspirin EC] 81 mg PO DAILY 05/05/16 [History Confirmed Last Taken 05/26/18 10:00] Ergocalciferol (Vitamin D2) [Vitamin D2] 50,000 unit PO Q7D 05/05/16 [History Confirmed 05/26/18 Last Taken 05/24/18 10:00] Insulin Aspart [Novolog] 10 unit SQ QPM 05/05/16 [History Confirmed 05/26/18 Last Taken 05/25/18 17:00] Insulin Detemir [Levemir] 16 unit SQ QPM 05/05/16 [History Confirmed 05/26/18 Last Taken 05/25/18 17:00] Metoprolol Tartrate [Lopressor] 25 mg PO BID 11/03/16 [History Confirmed Last Taken 05/26/18 10:00] Pnv No.122/Iron/Folic Acid [ Multi Tablet] 1 tab PO HS 05/05/16 [ History Confirmed 05/26/18 Last Taken 05/25/18 18:00] Simvastatin [Zocor] 40 mg PO HS 05/05/16 [History Confirmed 05/26/18 Last Taken 05/25/18 23:00] metFORMIN [Glucophage] 1,000 mg PO BIDCC 05/05/16 [History Confirmed 05/26/18 Last Taken 05/26/18 10:00] gabapentin 300 mg capsule 600 mg PO TID cap 05/18/16 [History Confirmed Last Taken 05/26/18 14:00] Furosemide [Lasix] 40 mg PO BID 05/26/18 [History Confirmed 05/26/18 Last Taken 05/26/18 10:00] Lisinopril 2.5 mg PO DAILY 05/26/18 [History Confirmed 05/26/18 Last Taken 05/26 10:00] Magnesium l-Lactate 84 mg PO BID 05/26/18 [History Confirmed 05/26/18 Last Taken 05/25/18 17:00] [place]ville-3/Dha/Epa/Fish Oil [Fish Oil 1,000 mg Softgel] 2 capsule PO BID 05/26/18 [ History Confirmed 05/26/18 Last Taken 05/26/18 10:00] Spironolactone [Aldactone] 25 mg PO TID 05/26/18 [History Confirmed 05/26/18 Last Taken 05/25/18 18:00] glipiZIDE [Glipizide ER] 2 tab PO DAILY 05/26/18 [History Confirmed 05/26/18 Last Taken 05/26/18 10:00] Medical - DS: Hosp Hospital course: 05/26 Ms. Marion is a 67 year old F with diabetic ulcers on her b/l heels who presents at the urging of her children because her feet are becoming more painful. Patient states little bit more swelling but mostly pain. She did not notice any purulent drainage. Denies subjective fevers and chills. In the ED she was evaluated and found to have purulent drainage of the right foot ED physician did probe to the bone. CT was done which could not rule out osteomyelitis. The ulcers have been worsening over the past few weeks. In the ER she was also found to have a fever mild leukocytosis significantly elevated ESR as well as a glucose. She was given IV fluids and started on IV antibiotics with blood cultures obtained and wound culture obtained. 05/27 Slept well. foot pain little better. Dressings placed and heel offloading boot was placed. No overnight events. 05/28 He needs to feel better. Good night sleep. No overnight issues. Wound care monitoring ulcer and following for need for debridement chemical versus manual 05/29 Sleeping okay. Dressings intact. Renal function little worse likely mild hypovolemia holding diuretics and give gentle fluids today. 05/30 No overnight events, no new complaints. Will be going to the OR shortly for debridement. 05/31 Had debridement in the OR yesterday. No overnight events and doing well. Blood sugars elevated yesterday afternoon and evening. 06/01 Had HBO therapy this morning, was quite anxious. Otherwise no complaints. Discussed with Dr. Ramirez. He is recommending 6 weeks of treatment with Zyvox for osteomyelitis. Also recommending oxandrolone for appetite and pre- HBO lorazepam. 06/02 Continues to do well. Has been seen by Dr. Kee Levy for wound care, his recommendations are as noted below. She will discharged to home today. Prescriptions given. Cultures have been without growth, chronic osteomyelitis however noted on surgical pathology. Antibiotics as below. Plan: OK to discharge home. Keep dressing clean and dry. HBO treatment on Monday06/04/2018 at 08:00 AM. Patient and family to arrange for transport. Please discharge home on following medications. OXANDRIN 5 mg PO BID for 3 weeks. Ferrous sulfate 325 mg PO daily for 4 weeks. ZYVOX ( LINEZOLID ) 600 mg PO BID for 4 weeks ATIVAN 1 mg PO 1 hour before HBOT for ten treatments. # 10 tabs. NO refill QUINTON SANTANA from [facility] to call wound care center on Monday06/04/2018 for wound care instructions. Discharge diagnosis: Cellulitis, right heel with diabetic ulcer and chronic osteomyelitis Secondary discharge diagnosis: Sepsis at presentation secondary to cellulitis and heel wounds. Resolved. Type 2 diabetes mellitus, hemoglobin A1c 8.4. On Levemir and sliding scale insulin. Acute kidney injury on CK D stage III. Creatinine 1.4 at discharge Anemia, chronic; iron supplements started Hypertension Chronic lower extremity edema, significantly improved this hospitalization. Malnutrition with prealbumin 6.9. On oxandrolone. Will continue as an outpatient. Anxiety with hyperbaric oxygen. Prescription for lorazepam pre-session given. - Time Spent with Patient Total time spent providing and/or coordinating discharge services: Greater than 30 minutes Medical - DS: Exam - Constitutional Vitals: Vital Signs Temp Pulse Resp BP BP Pulse Ox 06/02/18 07:53 97.8 F 20 110/59 93 06/02/18 04:00 98.2 F 84 16 138/72 94 06/02/18 00:00 97.8 F 83 16 145/72 95 06/01/18 20:00 97.9 F 78 18 143/71 96 06/01/18 19:28 16 146/85 06/01/18 16:00 98.2 F 71 16 125/77 94 Intake and Output 06/01/18 06/02/18 06/02/18 21:59 05:59 13:59 Intake Total 590 / 590 500 / 500 360 / 360 Output Total 700 / 700 1000 / 1000 Balance -110 / -110 -500 / -500 360 / 360 Intake: IV 50 / 50 50 / 50 Zosyn 2.25 gm In Dextrose 5% in 50 / 50 50 / 50 Water 50 ml @ 100 mls/hr IV Q6H [facility] [place] Rx#:[id number] Oral 540 / 540 450 / 450 360 / 360 Output: Void Amount 700 / 700 1000 / 1000 Other: Meal Dinner Breakfast Percent of Meal Consumed 100% 100% Feeding Ability Independent Independent Weight 203 lb Additional comments: General: In bed, no acute distress Chest: Clear, unlabored Cardio vascular: Regular Abdomen: Soft, obese Extremities: Bilateral feet are wrapped, dressings intact. Trace edema Neuro: Alert, oriented to person, place, situation. Medical - DS: Data Procedures and tests throughout hospitalization: Date of procedure: 05/30/18 Pre-op diagnosis: Sepsis. Necrotizing infection Right heel, DFU Nonstageable Post-op diagnosis: same Procedure: Surgical Excisional Necrosis Debridement, Pulse lavage irrigation, Deep tissue biopsies, cultures and BONE biopsy calcaneum Wound size 6 x 8 CM Grafts/Implants: No Anesthesia: MAC Findings: Full thickness necrosis skin and subcutaneous tissue AND FASCIA wound extends to bone Morin 3 Complications: none Surgeon: Robbie Ramirez Estimated blood loss (cc): 15 Specimens Removed/Pathology: other (Skin, sub cutneous adipose Soft tissue, tendon, bone) Condition: stable Disposition: floor (Procedure well tolerated.) Labs on day of discharge: Labs from last 24 hours 06/02/18 05:15 Sodium 138 Potassium 4.5 Chloride 102 Carbon Dioxide 23 Anion Gap 13.0 BUN 25 H Creatinine 1.4 H GFR Calculation 38 Glucose 151 H Calcium 8.5 L Preliminary micro results at discharge 05/30/18 13:00 Anaerobic Culture - Preliminary Foot - Right - Impressions Date of Service: 05/26/18 Procedure(s): CT foot RT wo con IMPRESSION: 1. Vague 16 mm region of osteolysis in the anterior calcaneal process with an associated nondisplaced obliquely fracture. This may be related to trauma or, less likely, infection. Suggest: MRI 2. Suspect vague fracture of the distal first proximal phalanx. Please correlate with history of trauma and point tenderness in this region. 3. 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 Diffuse cellulitis, but no evidence of discrete soft tissue abscess. 5. Pes planus and hammertoe deformity second through fifth digits. Mild degenerative change in all interphalangeal and MTT joints Date of Service: 05/27/18 Procedure(s): MR foot RT wo con IMPRESSION: 1. No evidence of osteomyelitis 2. Moderate cellulitis throughout the foot and ankle. No evidence of discrete soft tissue abscess 3. No evidence of calcaneal or first proximal phalangeal fractures which were suspected on CT. This should be considered CT artifact due to motion. 4. Moderate hammertoe deformity second through fifth digits and pes planus 5. 5 mm ossification adjacent to the plantar cortex of the first proximal phalanx mildly bowing the flexor tendon. 6. Subtotal tear of the posterior tibialis tendon near the navicular insertion - Additional Comments 05/30/2018 Surgical Pathology HISTOLOGY SPECIMEN MICROSCOPIC DIAGNOSIS SPECIMEN A - SKIN, RIGHT HEEL, BIOPSY: -- ULCERATED SKIN WITH IMPETIGINIZED SCALE CRUST WITH PERIVASCULAR MIXED ACUTE AND CHRONIC INFLAMMATION AND THROMBOTIC BLOOD VESSELS. -- NO DYSPLASIA OR MALIGNANCY IDENTIFIED. SPECIMEN B - BONE, RIGHT CALCANEUM, BIOPSY: -- CHRONIC OSTEOMYELITIS. SPECIMEN C - SOFT TISSUE, RIGHT HEEL, EXCISION: -- FIBROADIPOSE TISSUE WITH MIXED ACUTE AND CHRONIC INFLAMMATION. -- NO MALIGNANCY IDENTIFIED. (EBD:sln) CLINICAL HISTORY Sepsis necrotizing skin and soft tissue infection right heel; non-stageable diabetic foot ulcer; right heel posterior plantar aspect. Medical - DS: A/P - Patient/Caregiver Discharge Instructions Activity: increase activity as tolerated (Follow Dr. Ramirez's weight bearing instructions) Diet: Consistent Carbohydrate Additional Instructions: You are scheduled to continue your hyperbaric treatments on MondayJun.04 at 8 :00 am. - Follow up Plan Follow up with: Vaishali Ambriz [Primary Care Provider] - Robbie Ramirez MD [Physician] - (on MondayJun.04 you will be seen for wound care after your hyperbaric treatment.) Disposition: Home, Self-Care Prognosis: Fair Rehab Potential: Fair I certify that the patient requires SNF services: No Overall status at discharge: patient is not back to baseline Medical - DS: Qual - VTE Deep Vein Thrombosis/Pulmonary Embolism Present on Admission: No
== END 2018-06-02 14:25 | disposition home or self-care (01) | DRG 853 ==
LOC: ED 14:04 → MEDSUR 18:23
PROVIDERS: ADMIT Internal Medicine; ATTEND Internal Medicine
CPT/HCPCS: 11043; 11046; 20240; 84145; 90686; 97161; 97167; 99183; 99223; 99231; G0277; J1100; J1580; J1644; J1815; J1817; J2001; J2250; J2405; J2543; J3010; J3370; J3475; J3480; J7030; J7040; J7050; J7060; J7120